=== PATIENT | female | born 1955 | race Caucasian/White ===

== ENCOUNTER → 2022-11-23 13:04 | Outpatient (BNVA) | payer MEDICARE, MEDICAID, SELFPAY | PROVIDERS: PCP Pediatrics; Visit Provider Psychiatry & Neurology Neurology | DX: G25.2 Other specified forms of tremor (principal); G25.81 Restless legs syndrome; G43.109 Migraine with aura, not intractable, without status migrainosus; G47.33 Obstructive sleep apnea (adult) (pediatric) | CPT/HCPCS: 99202 ==

== ENCOUNTER → 2022-12-22 12:31 | Outpatient (REF) | payer MEDICARE, MEDICAID, SELFPAY | LOC: HO.SL 12:31 | PROVIDERS: PCP Pediatrics; Visit Provider Psychiatry & Neurology Neurology | DX: G47.33 Obstructive sleep apnea (adult) (pediatric) (principal) | CPT/HCPCS: 95806 ==

== ENCOUNTER → 2022-12-22 12:44 | Outpatient (BNV) | payer MEDICARE, MEDICAID, SELFPAY | PROVIDERS: PCP Pediatrics; Visit Provider Psychiatry & Neurology Neurology | DX: G47.33 Obstructive sleep apnea (adult) (pediatric) (principal) | CPT/HCPCS: 95806 ==

== ENCOUNTER 2023-03-09 13:24 | Outpatient (AMB) | payer MEDICARE, MEDICAID, SELFPAY ==
--- NOTE | 2023-03-09 13:25 | MHC.OFFVIS ---
Intake Vital Signs 03/09/23 13:28 BP 110/90 H Blood Pressure Location Rt brachial Position Sitting Pulse 83 Pulse Source Pulse Oximeter Pulse Oximetry (%) 99 Oxygen Delivery Method Room Air Intake Visit Reasons: 3m follow up tremor-confirmed Intake Note: Pt her to fup on tremors and rls Allergies latex Allergy (Severe, Verified 03/09/23 13:31) Rash metoclopramide [From Reglan] Allergy (Severe, Verified 03/09/23 13:31) Shortness of Breath morphine Allergy (Severe, Verified 03/09/23 13:31) Hallucinations Sulfa (Sulfonamide Antibiotics) Allergy (Severe, Verified 03/09/23 13:31) Rash Medication List - Last Reconciled 03/09/23 by Tesha Moffett MD allopurinol 100 mg PO DAILY aspirin 81 mg PO DAILY duloxetine 20 mg PO BID gabapentin 300 mg PO TID hydromorphone 2 mg PO DAILY levothyroxine 112 mcg PO DAILY omeprazole 20 mg PO DAILY ondansetron HCl 4 mg PO Q8H PRN potassium chloride ER 20 mEq PO DAILY pravastatin 40 mg PO DAILY primidone 100 mg (2 x 50 mg) PO BID ropinirole 0.25 mg PO BID ropinirole ER 4 mg PO BEDTIME spironolactone 25 mg PO DAILY torsemide 40 mg PO BID HPI HPI Comments History of Present Illness Details 67y/o female with multiple medical issues comes for follow up of tremors, restless legs sydnrome and migraines Requip XR 2mg helped she still has breakthrough symptoms. Increase in primidone did not help. Previous History-she was under the care of Dr. Damon until he retired . He was treating her with Botox for migraines a, primidone and ropinirole. She started having frequent migraines in 20s and increased in frequency since then Her headaches( pressure pounding) are frontal , occipital with nausea, photophobia phonophobia, vomiting , sees bright spots , dizziness etc. It can last 1-2 days. she has about 4 headaches days a month now. she use dto have more than 20 headache days in the past. she was tried on amitirptyline, depakote,gabapentin, propranolol, sumatriptan, maxalt fioricet etc . She was diagnosed with restless legs syndrome 2 years ago.she also has sleep apnea on CPAP - non complaint. she sees pulley maintainer and he is managing her CPAP. she reports abnormal movements and tingling burning in her feet at rest and at night. she wakes up 4-5 times at night. Ropinirole helps. She started noticing hand tremors about 3 years ago . It is usually with action or posture. It can happen at rest. she has difficulty eating , drinking , frequently drops things. [facility] Medical History Hypothyroid HTN (hypertension) GERD (gastroesophageal reflux disease) Depression Hyperlipidemia Below-knee amputation of right lower extremity Diverticulosis DJD (degenerative joint disease) Chronic migraine with aura Coarse tremors Restless legs syndrome (RLS) Obstructive sleep apnea Irritable bowel disease MTHFR gene mutation DVT (deep venous thrombosis) Sciatica Osteoporosis Prediabetes Surgical History Hx of above knee amputation Hx of knee surgery H/O: hysterectomy History of back surgery Family History Father Heart disease Parkinson disease Mother Heart disease COPD (chronic obstructive pulmonary disease) HTN (hypertension) Sleep apnea Sister Emphysema lung Glaucoma Thyroid condition Social History Alcohol intake: never Patient Tobacco Use Status: Never used Tobacco Physical Exam Vital Signs: Last Vital Signs Pulse 83 03/09/23 13:28 BP 110/90 H 03/09/23 13:28 Pulse Ox 99 03/09/23 13:28 Oxygen Delivery Method Room Air 03/09/23 13:28 Const Orientation/consciousness: patient oriented x3 Neuro Other: aster UE moderate amplitude postural action tremors and rare rets tremors. Normal tone Joint deformities due to arthritis that affects her hand movements. Asymmetrical pupils - she had retinl bleeding and had injections yesterday ? Right BKA General: patient oriented x3, tone normal, moves all extremities and Unable to assess gait Cranial nerves: Yes Nystagmus not present, Yes Normal facial strength present, Yes Midline tongue present, Yes Symmetric palate elevation present and Yes Ability to bilaterally elevate shoulders present Cognition (Neuro): normal cognition Speech: Other speech findings present (Neuro) (normal) Gait exam (Neuro): Unable to assess gait Motor exam (neuro): 5/5 motor strength present throughout Coordination: other (FN - action tremors) Psych Appearance: grossly normal Assessment & Plan Assessment & Plan (1) Coarse tremors: Code(s): G25.2 - Other specified forms of tremor (2) Restless legs syndrome (RLS): Code(s): G25.81 - Restless legs syndrome (3) Chronic migraine with aura: Code(s): G43.109 - Migraine with aura, not intractable, without status migrainosus (4) Obstructive sleep apnea: Code(s): G47.33 - Obstructive sleep apnea (adult) (pediatric) Plan Increase Primidone 100mg bid ropinirole CR 2mg qhs and continue ropinirole 0.25 mg bid Her migraines are stable now 3-4 /month and responds to tylenol Continue CPAP Medications: New ropinirole 0.25 mg PO BID 60 tabs 6RF Changed From primidone 50 mg PO BID 60 tabs 6RF To primidone 100 mg (2 x 50 mg) PO BID 120 tabs 6RF From ropinirole ER 2 mg PO BEDTIME 30 tabs 6RF To ropinirole ER 4 mg PO BEDTIME 30 tabs 6RF Coding Level of Care Code Est Pt Level 4 (00781) Diagnoses Coarse tremors G25.2 Restless legs syndrome (RLS) G25.81 Chronic migraine with aura G43.109 Obstructive sleep apnea G47.33
[2023-03-09 13:28] VITALS: BP 110/90; PULSE 83; O2SAT 99
== END 2023-03-09 13:51 | disposition home or self-care (01) ==
PROVIDERS: PCP Pediatrics; Visit Provider Psychiatry & Neurology Neurology
DX: G25.2 Other specified forms of tremor (principal); G25.81 Restless legs syndrome; G43.109 Migraine with aura, not intractable, without status migrainosus; G47.33 Obstructive sleep apnea (adult) (pediatric)
CPT/HCPCS: 99214

== ENCOUNTER → 2023-03-09 13:24 | Outpatient (BNVA) | payer MEDICARE, MEDICAID, SELFPAY | PROVIDERS: PCP Pediatrics; Visit Provider Psychiatry & Neurology Neurology | DX: G25.2 Other specified forms of tremor (principal); G25.81 Restless legs syndrome; G43.E09 Chronic migraine with aura, not intractable, without status migrainosus; G47.33 Obstructive sleep apnea (adult) (pediatric); Z99.89 Dependence on other enabling machines and devices | CPT/HCPCS: 99212 ==

== ENCOUNTER 2024-04-24 09:55 | Outpatient (AMB) | payer MEDICARE, MEDICAID, SELFPAY ==
--- NOTE | 2024-04-24 10:42 | MHC.OFFVIS ---
Intake Visit Reasons: Follow up Intake Note: Patient presents for follow up Allergies latex Allergy (Severe, Verified 04/24/24 10:44) Rash metoclopramide [From Reglan] Allergy (Severe, Verified 04/24/24 10:44) Shortness of Breath morphine Allergy (Severe, Verified 04/24/24 10:44) Hallucinations Sulfa (Sulfonamide Antibiotics) Allergy (Severe, Verified 04/24/24 10:44) Rash Medication List - Last Reconciled 04/24/24 by Tesha Moffett MD allopurinol 100 mg PO DAILY aspirin 81 mg PO DAILY duloxetine 20 mg PO BID gabapentin 300 mg PO TID hydromorphone 2 mg PO DAILY levothyroxine 112 mcg PO DAILY omeprazole 20 mg PO DAILY ondansetron HCl 4 mg PO Q8H PRN potassium chloride ER 20 mEq PO DAILY pravastatin 40 mg PO DAILY primidone 100 mg (2 x 50 mg) PO BID ropinirole 1 tab qam and 1 tab q noon 8 tabs qhs orally; spironolactone 25 mg PO DAILY torsemide 40 mg PO BID HPI Comments Details: 69y/o female with multiple medical issues comes for follow up of tremors, restless legs sydnrome and migraines. she was in senior living for 3 months for cellulitis . Her ropinirole and primiodne dose was decreased and her restless legs and tremors are worse now. Her primiodne dose was decreased to 50mg bid from 100mg bid. Ropinirole 0.25 mg was decreased from 1-1-8 to 1-1-2 . Previous History-she was under the care of Dr. Damon until he retired . He was treating her with Botox for migraines a, primidone and ropinirole. She started having frequent migraines in 20s and increased in frequency since then Her headaches( pressure pounding) are frontal , occipital with nausea, photophobia phonophobia, vomiting , sees bright spots , dizziness etc. It can last 1-2 days. she has about 4 headaches days a month now. she use dto have more than 20 headache days in the past. she was tried on amitirptyline, depakote,gabapentin, propranolol, sumatriptan, maxalt fioricet etc . She was diagnosed with restless legs syndrome 2 years ago.she also has sleep apnea on CPAP - non complaint. she sees manager deli and he is managing her CPAP. she reports abnormal movements and tingling burning in her feet at rest and at night. she wakes up 4-5 times at night. Ropinirole helps. She started noticing hand tremors about 3 years ago . It is usually with action or posture. It can happen at rest. she has difficulty eating , drinking , frequently drops things. [facility] Medical History Hypothyroid HTN (hypertension) GERD (gastroesophageal reflux disease) Depression Hyperlipidemia Below-knee amputation of right lower extremity Diverticulosis DJD (degenerative joint disease) Chronic migraine with aura Coarse tremors Restless legs syndrome (RLS) Obstructive sleep apnea Irritable bowel disease MTHFR gene mutation DVT (deep venous thrombosis) Sciatica Osteoporosis Prediabetes Surgical History Hx of above knee amputation Hx of knee surgery H/O: hysterectomy History of back surgery Family History Father Heart disease Parkinson disease Mother Heart disease COPD (chronic obstructive pulmonary disease) HTN (hypertension) Sleep apnea Sister Emphysema lung Glaucoma Thyroid condition Social History Alcohol intake: never Patient Tobacco Use Status: Never used Tobacco Physical Exam Const Orientation/consciousness: patient oriented x3 Neuro Other: aster UE moderate amplitude postural action tremors and rare rest tremors. Normal tone Joint deformities due to arthritis that affects her hand movements. Right BKA General: patient oriented x3, tone normal, moves all extremities and Unable to assess gait Cranial nerves: Yes Nystagmus not present, Yes Normal facial strength present, Yes Midline tongue present, Yes Symmetric palate elevation present and Yes Ability to bilaterally elevate shoulders present Cognition (Neuro): normal cognition Speech: Other speech findings present (Neuro) (normal) Gait exam (Neuro): Unable to assess gait Motor exam (neuro): 5/5 motor strength present throughout Coordination: other (FN - action tremors) Psych Appearance: grossly normal Assessment & Plan Assessment & Plan (1) Coarse tremors: Code(s): G25.2 - Other specified forms of tremor Category: Medical (2) Restless legs syndrome (RLS): Code(s): G25.81 - Restless legs syndrome Category: Medical (3) Chronic migraine with aura: Code(s): G43.109 - Migraine with aura, not intractable, without status migrainosus Category: Medical Qualifiers: Status migrainosus presence: without status migrainosus Intractability: not intractable Qualified Code(s): G43.E09 - Chronic migraine with aura, not intractable, without status migrainosus (4) Obstructive sleep apnea: Code(s): G47.33 - Obstructive sleep apnea (adult) (pediatric) Category: Medical Plan Increase primidone 100mg bid Ropinirole 0.25 mg 8 restart CPAP which can help her headaches Medications: Refilled primidone 100 mg (2 x 50 mg) PO BID 120 tabs 6RF ropinirole 1 tab qam and 1 tab q noon 8 tabs qhs orally; 300 tabs 6RF Coding Level of Care Code Est Pt Level 4 (88062) Complex EM visit Add On G2211 Diagnoses Coarse tremors G25.2 Restless legs syndrome (RLS) G25.81 Chronic migraine with aura without status migrainosus, not intractable G43.E09 Status migrainosus presence: without status migrainosus Intractability: not intractable Obstructive sleep apnea G47.33
== END 2024-04-24 11:02 | disposition home or self-care (01) ==
PROVIDERS: PCP Pediatrics; Visit Provider Psychiatry & Neurology Neurology
DX: G25.2 Other specified forms of tremor (principal); G25.81 Restless legs syndrome; G43.E09 Chronic migraine with aura, not intractable, without status migrainosus; G47.33 Obstructive sleep apnea (adult) (pediatric)
CPT/HCPCS: 99214; G2211

== ENCOUNTER → 2024-04-24 09:55 | Outpatient (BNVA) | payer MEDICARE, MEDICAID, SELFPAY | PROVIDERS: PCP Pediatrics; Visit Provider Psychiatry & Neurology Neurology | DX: G25.2 Other specified forms of tremor (principal); G25.81 Restless legs syndrome; G47.33 Obstructive sleep apnea (adult) (pediatric); G43.E09 Chronic migraine with aura, not intractable, without status migrainosus; Z99.89 Dependence on other enabling machines and devices | CPT/HCPCS: 99212 ==

== ENCOUNTER 2024-08-07 12:59 | Outpatient (AMB) | payer MEDICARE, MEDICAID, SELFPAY ==
--- NOTE | 2024-08-07 13:06 | A.OFFVIS_ITS ---
Vital Signs 08/07/24 13:09 Height 5 ft 3 in BP 114/66 Blood Pressure Location Rt brachial Position Sitting Pulse 60 Pulse Source Pulse Oximeter Pulse Oximetry (%) 99 Oxygen Delivery Method Room Air Intake Visit Reasons: follow up Intake Note: Pt presents to the office today for a follow up for chronic migraines, LINDSEY, and tremors. Allergies latex Allergy (Severe, Verified 08/07/24 13:09) Rash metoclopramide [From Reglan] Allergy (Severe, Verified 08/07/24 13:09) Shortness of Breath morphine Allergy (Severe, Verified 08/07/24 13:09) Hallucinations Sulfa (Sulfonamide Antibiotics) Allergy (Severe, Verified 08/07/24 13:09) Rash Medication List - Last Reconciled 08/07/24 by Tesha Moffett MD allopurinol 100 mg PO DAILY aspirin 81 mg PO DAILY duloxetine 20 mg PO BID gabapentin 300 mg PO TID hydromorphone 2 mg PO DAILY levothyroxine 112 mcg PO DAILY losartan 25 mg PO DAILY metoprolol tartrate 25 mg PO BID omeprazole 20 mg PO DAILY ondansetron HCl 4 mg PO Q8H PRN potassium chloride ER 20 mEq PO DAILY pravastatin 40 mg PO DAILY primidone 100 mg (2 x 50 mg) PO BID ropinirole 1 tab qam and 1 tab q noon 8 tabs qhs orally; spironolactone 25 mg PO DAILY torsemide 40 mg PO BID HPI Comments Details: Patient was informed and verbally consented to the use of an ambient scribe for clinic note documentation during this visit. 69y/o female with multiple medical issues comes for follow up of tremors, restless legs sydnrome and migraines.she also reports neck pain and has 2 headaches per week and takes tylenol . Her CPAP compliance is limited due to discomfort, resulting in morning breathlessness indicating obstructive sleep apnea remains inadequately managed.. Tremors are not adequately controlled by Primidone, despite dose adjustments and the absence of adverse effects. The restless leg syndrome severely affects her, necessitating a review of her ropinirole regimen, which currently causes significant discomfort when multiple doses are taken at night. Previous History-she was under the care of Dr. Damon until he retired . He was treating her with Botox for migraines a, primidone and ropinirole. She started having frequent migraines in 20s and increased in frequency since then Her headaches( pressure pounding) are frontal , occipital with nausea, photophobia phonophobia, vomiting , sees bright spots , dizziness etc. It can last 1-2 days. she has about 4 headaches days a month now. she use dto have more than 20 headache days in the past. she was tried on amitirptyline, depakote,gabapentin, propranolol, sumatriptan, maxalt fioricet etc . She was diagnosed with restless legs syndrome 2 years ago.she also has sleep apnea on CPAP - non complaint. she sees reducing salon attendant and he is managing her CPAP. she reports abnormal movements and tingling burning in her feet at rest and at night. she wakes up 4-5 times at night. Ropinirole helps. She started noticing hand tremors about 3 years ago . It is usually with action or posture. It can happen at rest. she has difficulty eating , drinking , frequently drops things. [facility] Medical History (Updated 08/07/24 @ 13:21 by Tesha Moffett MD) Cervicalgia Hypothyroid HTN (hypertension) GERD (gastroesophageal reflux disease) Depression Hyperlipidemia Below-knee amputation of right lower extremity Diverticulosis DJD (degenerative joint disease) Chronic migraine with aura Coarse tremors Restless legs syndrome (RLS) Obstructive sleep apnea Irritable bowel disease MTHFR gene mutation DVT (deep venous thrombosis) Sciatica Osteoporosis Prediabetes Surgical History Hx of above knee amputation Hx of knee surgery H/O: hysterectomy History of back surgery Family History Father Heart disease Parkinson disease Mother Heart disease COPD (chronic obstructive pulmonary disease) HTN (hypertension) Sleep apnea Sister Emphysema lung Glaucoma Thyroid condition Social History Alcohol intake: never Patient Tobacco Use Status: Never used Tobacco Review of Systems Const Details: - Neurological: Reports tremors, persistent headaches, and restless leg syndrome. - Respiratory: Reports obstructive sleep apnea with insufficient CPAP compliance. - Cardiovascular: Denies chest pain or palpitations. - Dermatological: Reports recurrent cellulitis. Physical Exam Vital Signs: Last Vital Signs Pulse 60 08/07/24 13:09 BP 114/66 08/07/24 13:09 Pulse Ox 99 08/07/24 13:09 Oxygen Delivery Method Room Air 08/07/24 13:09 Const Orientation/consciousness: patient oriented x3 Neuro Other: aster UE moderate amplitude postural action tremors and rare rest tremors. Normal tone Joint deformities due to arthritis that affects her hand movements. Right BKA General: patient oriented x3, tone normal, moves all extremities and Unable to assess gait Cranial nerves: Yes Nystagmus not present, Yes Normal facial strength present, Yes Midline tongue present, Yes Symmetric palate elevation present and Yes Ability to bilaterally elevate shoulders present Cognition (Neuro): normal cognition Speech: Other speech findings present (Neuro) (normal) Gait exam (Neuro): Unable to assess gait Motor exam (neuro): 5/5 motor strength present throughout Coordination: other (FN - action tremors) Psych Appearance: grossly normal Assessment & Plan Assessment & Plan (1) Coarse tremors: Code(s): G25.2 - Other specified forms of tremor Category: Medical (2) Restless legs syndrome (RLS): Code(s): G25.81 - Restless legs syndrome Category: Medical (3) Chronic migraine with aura: Code(s): G43.109 - Migraine with aura, not intractable, without status migrainosus Category: Medical Qualifiers: Status migrainosus presence: without status migrainosus Intractability: not intractable Qualified Code(s): G43.E09 - Chronic migraine with aura, not intractable, without status migrainosus (4) Obstructive sleep apnea: Code(s): G47.33 - Obstructive sleep apnea (adult) (pediatric) Category: Medical (5) Cervicalgia: Code(s): M54.2 - Cervicalgia Category: Medical Plan primidone 100mg bid Ropinirole 0.5mg 1-1-2 Increase gabapentin 300mg qid F/u with DR. Ortiz -CPAP Consider PT for neck Medications: Changed From ropinirole 1 tab qam and 1 tab q noon 8 tabs qhs orally; 300 tabs 6RF To ropinirole 1 tab qam and 1 tab q noon 4 tabs qhs orally; 180 tabs 6RF From gabapentin 300 mg PO TID To gabapentin 300 mg PO QID 120 caps 1RF Coding Level of Care Code Est Pt Level 4 (96779) Complex EM visit Add On G2211 Diagnoses Coarse tremors G25.2 Restless legs syndrome (RLS) G25.81 Chronic migraine with aura without status migrainosus, not intractable G43.E09 Status migrainosus presence: without status migrainosus Intractability: not intractable Obstructive sleep apnea G47.33 Cervicalgia M54.2
[2024-08-07 13:09] VITALS: BP 114/66; PULSE 60; O2SAT 99
--- OUTSIDE RECORDS SUMMARY | 2024-08-07 15:19 | XMS_ITS | Clinical Summary ---
Author Organization [facility] Address [address] [place] [address] Care Team Providers Care Youth Development Specialist Name Role Phone Steven Logan MD Primary Care Provider [phone] Allergies Active Allergy Reactions Criticality Noted Date Comments Sulfamethoxazole-Trimethoprim 2022 Latex 07/04/2022 Metoclopramide 07/04/2022 Sulfa Antibiotics 07/04/2022 Ketorolac Tromethamine 07/04/2022 Medications No known medications Active Problems No known active problems Social History Tobacco Use Types Packs/Day Years Used Date Smoking Tobacco: Never Smokeless Tobacco: Never Tobacco Cessation:Counseling Given: Not Answered Alcohol Use Standard Drinks/Week Comments Never 0 (1 standard drink = 0.6 oz pur e alcohol) Sex and Gender Information Value Date Recorded Sex Assigned at Not on file Gender Identity Not on file Sexual Orientation Not on file Job Start Date Occupation Industry Not on file Not on file Not on file Last Filed Vital Signs Vital Sign Reading Time Taken Comments Blood Pressure 166/79 07/20/2022 11:21 AM EST Pulse 86 07/20/2022 11:21 AM EST Temperature 36.5 ??C (97.7 ??F) 07/20/2022 11:[address] Respiratory Rate - - Oxygen Saturation 98% 07/20/2022 11:21 AM EST Inhaled Oxygen Concentration - - Weight 95.3 kg (210 lb) 07/04/2022 11:45 AM EST Height 160 cm (5' 3 ) 07/04/2022 11:45 AM EST Body Mass Index 37.2 07/04/2022 11:45 AM EST Plan of Treatment Health Maintenance Due Date Last Done Comments Hepatitis C Screening 1955 COVID-19 Vaccine (#1) 1954 Depression Screening 1966 Preventative Health Evaluation 1972 Colon Cancer Screening (Colonoscopy) 1999 Breast Cancer Screening (Mammogram) 2004 Shingrix-Zoster Vaccine (1 of 2) 2004 Fall Risk Assessment 2019 Osteoporosis Screening (DEXA Scan) 2019 Pneumococcal Vaccine (2 of 2 - PCV) 09/29/2021 09/29/2020 DTap / Tdap / Td (2 - Td or Tdap) 04/30/2022 04/30/2012 Influenza Vaccine (#1) 2024 2, 2021, 02/08/2019, Additional history exists RSV Adult > 60+ Yrs or (1 - 1-dose 75+ series) 2029 Hepatitis B Vaccines Aged Out No long er eligible based on patient's age to complete this topic RSV Ped < 20 months Aged Out No longe r eligible based on patient's age to complete this topic Care Teams Youth Development Specialist Relationship Specialty Start Date End Date Steven Logan MD PCP - General Network Coordinator 05/03/22
== END 2024-08-07 13:32 | disposition home or self-care (01) ==
PROVIDERS: PCP Pediatrics; Visit Provider Psychiatry & Neurology Neurology
DX: G25.2 Other specified forms of tremor (principal); G25.81 Restless legs syndrome; G43.E09 Chronic migraine with aura, not intractable, without status migrainosus; G47.33 Obstructive sleep apnea (adult) (pediatric); M54.2 Cervicalgia
CPT/HCPCS: 99214; G2211

== ENCOUNTER → 2024-08-07 12:59 | Outpatient (BNVA) | payer MEDICARE, MEDICAID, SELFPAY | PROVIDERS: PCP Pediatrics; Visit Provider Psychiatry & Neurology Neurology | DX: G43.E09 Chronic migraine with aura, not intractable, without status migrainosus (principal); G47.33 Obstructive sleep apnea (adult) (pediatric); G25.81 Restless legs syndrome; M54.2 Cervicalgia; Z99.89 Dependence on other enabling machines and devices | CPT/HCPCS: 99212 ==

== ENCOUNTER 2025-05-30 11:22 | Outpatient (AMB) | payer MEDICARE, MEDICAID, SELFPAY ==
--- OUTSIDE RECORDS SUMMARY | 2025-05-26 10:30 | XMS_ITS | Encounter Summary ---
Author Organization [facility] Address [address] [place] [address] Care Team Providers Care Jacket Preparer Name Role Phone Sheridan Logan MD Primary Care Provider [phone] Reason for Visit * Reason Comments Wound Care Encounter Details Date Type Department Care Team (Latest Contact Info) Description 05/26/2025 10:30 AM EST Office Visit [facility] [address] [place] [phone] Emma Garcias MD [address] [place] [phone] Other complications of amputation stump (CMS/FORMERLY [facility] V24, CMS/FORMER[facility] V28) (Primary Dx); Non-pressure chronic ulcer of other part of right lower leg with fat layer exposed (CMS/HCC V24, CMS/HCC V28); Acquired absence of right leg below knee (CMS/HCC V24, CMS/HCC V28); Dermatitis associated with moisture; Open wound of abdomen, subsequent encounter; Non-pressure chronic ulcer of skin of other sites with fat layer exposed (CMS/HCC V24, CMS/HCC V28); Abrasion of left great toe, initial encounter; Non-pressure chronic ulcer of other part of left foot limited to breakdown of skin (CMS/HCC V24, CMS/HCC V28) Social History Tobacco Use Types Packs/Day Years Used Date Smoking Tobacco: Never Passive Smoke Exposure: Never Smokeless Tobacco: Never Alcohol Use Standard Drinks/Week Comments No 0 (1 standard drink = 0.6 oz pur e alcohol) Comments No Sex and Gender Information Value Date Recorded Sex Assigned at Not on file Legal Sex Female 6:41 AM EST Gender Identity Not on file Sexual Orientation Not on file documented as of this encounter Last Filed Vital Signs Vital Sign Reading Time Taken Comments Blood Pressure 112/52 05/26/2025 10:36 AM EST Pulse 71 05/26/2025 10:36 AM EST Temperature 36 C (96.8 F) 05/26/2025 10:36 AM EST Respiratory Rate 17 05/26/2025 10:36 AM EST Oxygen Saturation 94% 05/26/2025 10:36 AM EST Inhaled Oxygen Concentration - - Weight - - Height - - Body Mass Index - - documented in this encounter Progress Notes * Ericka Chavarria RN - 05/26/2025 10:30 AM EST PROVIDER ORDERS Go to ER if you are presenting with fever, chills, increased redness, pain, swelling, warmth aroundwound area and/or foul smelling odor. If you have any questions or concerns, please contact the [facility] at . Follow up(s)/ Referrals: N/A Chcf: care home facility: [facility] -Please have chain maker machine see patient, states she is losing a lot of weight, no appetite Additional Orders: -Increase protein in your diet to help promote wound healing Edema Control: If your compression wrap(s) feel to tight, please elevate your leg(s) about heart level. If your wrap(s) are becoming painful and/or you loose sensation of toes/ are having toe discoloration (a change from your baseline), please remove / unwrap compression and notify [facility] at . -Tubigrip to left lower extremity. Apply first thing in the morning prior to getting out of bed, OKto remove at bedtime. Ensure tubigrip extends from just behind the toes to about 2 finger widths below the knee. -right BKA- Michael wrap (make sure it is not bunching and causing breakdown behind the knee) -Elevate legs above heart level as much as possible Offloading: Limit pressure to wound as much as possible Negative Pressure Wound Therapy: N/A Cellular/Tissue Based Products: N/A Bathing / Showering / Hygiene: -Ok to shower with dressing on, then change dressing right after. Non-wound Condition/ Other Skin Care: Moisturize skin daily, avoiding wound area Wound Location(s): Wound #1 (Right BKA): Cleanser: Cleanse with normal saline Periwound: Apply Zinc Oxide to elsa wound Topical: N/A Primary dressing: Collagen with Silver- will dissolve in wound. If not dissolving you may moisten with saline prior to covering. Secondary dressinx9 ABD pad Secure with: Kerlix wrap, 1 paper tape Compression Therapy: 4 Michael Wrap Dressing Change Frequency: Daily Wound #2 (Right abdominal fold): Cleanser: Cleanse with Normal Saline Periwound: Other: Miconazole 2% cream to superficial reddened areas Topical: N/A Primary dressing: Hydrofiber with silver (Aquacel AG)- cut to fit to wound bed (to deeper wound area) Secondary dressinx4 Foam border dressing (if able to stay in place) Secure with: N/A Compression Therapy: N/A Dressing Change Frequency: Daily Wound #3 (Left great toe): Cleanser: Cleanse with Normal Saline Periwound: N/A Topical: Mupirocin 2% ointment- Apply a thin layer to wound bed Primary dressing: N/A Secondary dressinx2 woven gauze ( non-sterile) Secure with: 2 conforming gauze roll, 1 paper tape Compression Therapy: N/A Dressing Change Frequency: Daily * Emma Garcias MD - 05/26/2025 10:30 AM ESTAssociated Order(s): Debridement Dehiscence of Surgical Wound (Cluster ) Right;Lower;Other (Comment) (BKA) Leg (BKA amputation site ) Post-Procedure Diagnose(s): Other complications of amputation stump (CMS/HCC V24, CMS/HCC V28); Non-pressure chronic ulcer of other part of right lower leg with fat layer exposed (CMS/HCC V24, CMS/HCC V28); Acquired absence of right leg below knee (CMS/[facility] V24, CMS/[facility] V28) Images from the original note were not included. [facility] at [address] [address] Office Visit Visit Date: 05/26/2025 Patient Name: Elda Skinner Date of : 1955 PCP: Sheridan Logan MD HPI: Elda comes in for follow-up right BKA stump wound, treated with Danielle and alginate dressing change every other day. She now has a new left big toe wound. She also has superficial right lower quadrant wounds treated with alginate dressing change every other day. She apparently was seen recently at [facility] for recurrent UTI. She has an upcoming appointment with the supply chain analyst Dr. Hargrove. She is to see the neurologist for her tremors. Her diabetes is fairly well-controlled. She is still at the senior care facility since her shoulder surgery. Assessment and Plan: Other complications of amputation stump (CMS/[facility] V24, [facility]/FORMERLY [facility] V28) (Primary) - Debridement Dehiscence of Surgical Wound (Cluster ) Right;Lower;Other (Comment) (BKA) Leg (BKA amputation site ) Non-pressure chronic ulcer of other part of right lower leg with fat layer exposed ([facility]/FORMERLY [facility] V24, [facility] V28) - Debridement Dehiscence of Surgical Wound (Cluster ) Right;Lower;Other (Comment) (BKA) Leg (BKA amputation site ) Acquired absence of right leg below knee (CMS/[facility] V24, CMS/[facility] V28) - Debridement Dehiscence of Surgical Wound (Cluster ) Right;Lower;Other (Comment) (BKA) Leg (BKA amputation site ) Dermatitis associated with moisture Open wound of abdomen, subsequent encounter Non-pressure chronic ulcer of skin of other sites with fat layer exposed (CMS/[facility] V24, CMS/[facility] V28) Abrasion of left great toe, initial encounter Non-pressure chronic ulcer of other part of left foot limited to breakdown of skin (CMS/[facility] V24, CMS/[facility] V28) Selective debridement right BKA stump wound carried out with scalpel and forceps removing fibrin and slough no bleeding. Local 5% lidocaine used. Continue Danielle and alginate to the BKA stump, mupirocin to the left big big toe wound, alginate tothe right lower quadrant wounds. All questions were answered to her satisfaction. She was counseled regarding my impressions, instructions for management, and the importance of compliance with treatment. Follow up in about 2 weeks (around 06/09/2025) for Follow up with Dr. Garcias. >>>>>>>>>>>>>>>>>>>>>>>>>>>>>>>>>>>>>>>>>>>>>>>>>>> Vital Signs: Visit Vitals BP 112/52 Pulse 71 Temp 36 ??C (96.8 ??F) (Temporal) Resp 17 SpO2 94% OB Status Postmenopausal Smoking Status Never Review of Systems: Review of Systems PHYSICAL EXAM right BKA stump wound about the same size, pink granulation tissue some fibrin and slough around the edges. BKA stump edema improved. Left big toe wound superficial skin loss mild erythema around the wound localized, no foot edema nocellulitis. Right lower quadrant wounds was a cluster of 3. 2 of the ulcers have healed, remaining ulcers cleanwith pink granulation tissue, smaller in size. Periwound skin intact no cellulitis. WOUND ASSESSMENT If photograph of wound not visible on this note, please check under Media tab. Wound Dehiscence of Surgical Wound 09/27/19 Leg Right;Lower;Other (Comment) (Active) Date First Assessed/Time First Assessed: 09/27/19 1000 Primary Wound Type: (c) Dehiscence of Surgical Wound Wound Approximate Age at First Assessment (Weeks): 0 weeks Hand Hygiene Completed: Yes Location: (c) Leg Wound Location Orientation: (c) ... Assessments 04/08/2024 12:00 PM 05/26/2025 10:45 AM Wound Image Wound Bed Tissue Assessment -- Granulation Elsa-Wound Assessment Edematous;Erythematous Scarred;[place] Wound Length (cm) 1.6 cm 0.3 cm Wound Width (cm) 7.2 cm 1.7 cm Wound Surface Area (cm^2) 11.52 cm^2 0.4 cm^2 Wound Depth (cm) 0.1 cm 0.2 cm Wound Volume (cm^3) 1.152 cm^3 0.053 cm^3 Wound Healing % -- 95 Drainage Description Serosanguineous Serosanguineous;Sanguineous Drainage Amount Large Moderate Treatments Cleansed Cleansed Dressing -- Tubular stocking;Foam Dressing Status -- Removed Wound Bed Granulation (%) 30 % 100 % Wound Bed Epithelialization (%) -- 0 % Wound Bed Slough (%) 70 % 0 % Wound Bed Eschar (%) 0 % 0 % Tunneling 0 cm 0 cm Undermining 0 cm 0 cm Edges Well-defined edges;Attached edges Attached edges;Well-defined edges Non-staged Wound Description -- Full thickness Active Orders Date Order Priority Status Authorizing Provider 05/26/25 1127 Debridement Dehiscence of Surgical Wound (Cluster ) Right;Lower;Other (Comment) (BKA)Leg (BKA amputation site ) Routine Active Emma Garcias MD 07/15/24 1501 Wound Care Supplies Routine Active Emma Garcias MD - Wound Care Supplies: Other (4 michael wraps with velcro closure) - Dispense As Written (KENIA)?: Yes - Frequency of Dressing Change: every other day - Further DME Specification:: see supplies in comment box - Face to face evaluation was performed on: 07/15/2024 - Additional providers who completed a face to face evaluation of the patient:: EMMA GARCIAS 07/01/24 1341 Wound Care Supplies Routine Active Emma Garcias MD - Wound Care Supplies: Gauze 4x4 (non sterile) (collagen with silver / 4 kerlix wrap / 1 paper tape /) - Wound Care Supplies: Normal saline for irrigation (sterile) - 500ml - Wound Care Supplies: Other - Wound Care Supplies: Michael Bandage 4 - Days Supply:: 30 - Wound Care Refill Qty:: 1 - Debridement Performed:: Yes - Wound Drainage:: Moderate - Dispense As Written (KENIA)?: Yes - Frequency of Dressing Change: every other day - Further DME Specification:: see additional supplies in comment box - Face to face evaluation was performed on: 07/01/2024 - Additional providers who completed a face to face evaluation of the patient:: EMMA GARCIAS 06/03/24 1318 Wound Care Supplies Routine Active Emma Garcias MD - Wound Care Supplies: Abdominal Pads - Wound Care Supplies: Normal saline for irrigation (sterile) - 500ml - Abdominal Pad size: 5x9 - Days Supply:: 30 - Wound Care Refill Qty:: 1 - Debridement Performed:: Yes - Wound Drainage:: Moderate - Dispense As Written (KENIA)?: No - Frequency of Dressing Change: every other day - Face to face evaluation was performed on: 06/03/2024 - Additional providers who completed a face to face evaluation of the patient:: EMMA GARCIAS 04/22/24 1740 Wound Care Supplies Routine Active Emma Garcias MD - Wound Care Supplies: Normal saline for irrigation (sterile) - 500ml (exudry 3x4in / paper tape 1in / Iodosorb gel) - Wound Care Supplies: Gauze 4x4 (non sterile) - Wound Care Supplies: Kerlix (large) - Wound Care Supplies: Other - Wound Care Supplies: Michael Bandage 4 - Days Supply:: 30 - Wound Care Refill Qty:: 2 - Debridement Performed:: Yes - Wound Drainage:: Moderate - Dispense As Written (KENIA)?: No - Frequency of Dressing Change: every other day - Further DME Specification:: please see all additional supplies in comments - Face to face evaluation was performed on: 04/22/2024 - Additional providers who completed a face to face evaluation of the patient:: EMMA GARCIAS Inactive Orders Date Order Priority Status Authorizing Provider 04/07/25 1402 Debridement Dehiscence of Surgical Wound (Cluster ) Right;Lower;Other (Comment) (BKA)Leg (BKA amputation site ) Routine Completed Emma Garcias MD 03/10/25 1121 Debridement Dehiscence of Surgical Wound (Cluster ) Right;Lower;Other (Comment) (BKA)Leg (BKA amputation site ) Routine Completed TAMRA Gottlieb 02/24/25 1452 Debridement Dehiscence of Surgical Wound (Cluster ) Right;Lower;Other (Comment) (BKA)Leg (BKA amputation site ) Routine Completed Emma Garcias MD 02/10/25 1419 Wound Care Procedure Dehiscence of Surgical Wound Leg Right;Lower;Other (Comment) Routine Completed Emma Garcias MD 01/20/25 1435 Debridement Dehiscence of Surgical Wound (Cluster ) Right;Lower;Other (Comment) (BKA)Leg (BKA amputation site ) Routine Completed Emma Garcias MD 01/06/25 1335 Debridement Dehiscence of Surgical Wound (Cluster ) Right;Lower;Other (Comment) (BKA)Leg (BKA amputation site ) Routine Completed Emma Garcias MD 12/23/24 1211 Debridement Dehiscence of Surgical Wound (Cluster ) Right;Lower;Other (Comment) (BKA)Leg (BKA amputation site ) Routine Completed Emma Garcias MD 11/04/24 1616 Debridement Dehiscence of Surgical Wound (Cluster ) Right;Lower;Other (Comment) (BKA)Leg (BKA amputation site ) Routine Completed Emma Garcias MD 09/16/24 1339 Debridement Dehiscence of Surgical Wound (Cluster ) Right;Lower;Other (Comment) (BKA)Leg (BKA amputation site ) Routine Completed Emma Garcias MD 09/02/24 1032 Debridement Dehiscence of Surgical Wound Right;Lower;Other (Comment) (BKA) Leg (BKA amputation site ) Routine Completed Emma Garcias MD 08/05/24 1502 Debridement Dehiscence of Surgical Wound Right;Lower;Other (Comment) (BKA) Leg (BKA amputation site ) Routine Completed Emma Garcias MD 07/29/24 1336 Debridement Dehiscence of Surgical Wound Right;Lower;Other (Comment) (BKA) Leg (BKA amputation site ) Routine Completed Emma Garcias MD 07/15/24 1450 Debridement Dehiscence of Surgical Wound Right;Lower;Other (Comment) (BKA) Leg (BKA amputation site ) Routine Completed Emma Garcias MD 06/17/24 1400 Debridement Dehiscence of Surgical Wound Right;Lower;Other (Comment) (BKA) Leg (BKA amputation site ) Routine Completed Emma Garcias MD 06/03/24 1309 Debridement Dehiscence of Surgical Wound Right;Lower;Other (Comment) (BKA) Leg (BKA amputation site ) Routine Completed Emma Garcias MD 05/20/24 1113 Debridement Dehiscence of Surgical Wound Right;Lower;Other (Comment) (BKA) Leg (BKA amputation site ) Routine Completed Emma Garcias MD 05/06/24 1411 Debridement Dehiscence of Surgical Wound Right;Other (Comment) (BKA) Knee (BKA amputation site ) Routine Completed Emma Garcias MD 04/08/24 1306 Debridement Knee (BKA amputation site ) Routine Completed TAMRA Gottlieb Wound 04/21/25 Abdomen Anterior;Right (Active) Date First Assessed/Time First Assessed: 04/21/25 1526 Wound Approximate Age at First Assessment (Weeks): 1.5 weeks Hand Hygiene Completed: Yes Location: Abdomen Wound Location Orientation: Anterior;Right Assessments 04/21/2025 3:27 PM 05/26/2025 10:46 AM Wound Image Wound Bed Tissue Assessment Granulation;Sloughing Granulation;Sloughing Elsa-Wound Assessment Red Red Wound Length (cm) 0.8 cm 2.5 cm Wound Width (cm) 12 cm 9.5 cm Wound Surface Area (cm^2) 7.54 cm^2 18.65 cm^2 Wound Depth (cm) 0.1 cm 0.1 cm Wound Volume (cm^3) 0.503 cm^3 1.244 cm^3 Wound Healing % -- -147 Drainage Description -- Unable to assess Treatments Cleansed Cleansed Dressing Open to air Open to air Wound Bed Granulation (%) 80 % 50 % Wound Bed Epithelialization (%) 0 % 0 % Wound Bed Slough (%) 20 % 50 % Wound Bed Eschar (%) 0 % 0 % Tunneling 0 cm 0 cm Undermining 0 cm 0 cm Edges Attached edges;Well-defined edges Attached edges No associated orders. Wound Diabetic Ulcer 05/19/25 Toe D1, Great Anterior;Left (Active) Date First Assessed: 05/19/25 Primary Wound Type: Diabetic Ulcer Wound Approximate Age at First Assessment (Weeks): 1 weeks Hand Hygiene Completed: Yes Diabetic Ulcer Grading: Grade 2 Location: Toe D1, Great Wound Location Orientation: Anterior... Assessments 05/26/2025 10:50 AM Wound Image Wound Bed Tissue Assessment Sloughing Elsa-Wound Assessment Red Wound Length (cm) 0.5 cm Wound Width (cm) 1 cm Wound Surface Area (cm^2) 0.39 cm^2 Wound Depth (cm) 0.1 cm Wound Volume (cm^3) 0.026 cm^3 Drainage Description Unable to assess Treatments Cleansed Dressing Open to air Wound Bed Granulation (%) 0 % Wound Bed Epithelialization (%) 0 % Wound Bed Slough (%) 100 % Wound Bed Eschar (%) 0 % Tunneling 0 cm Undermining 0 cm Edges Attached edges Non-staged Wound Description Full thickness No associated orders. Pertinent Labs: Albumin Date Value Ref Range Status 01/27/2025 3.5 3.2 - 5.0 g/dL Final WBC Date Value Ref Range Status 04/17/2025 7.8 4.8 - 10.8 K/mcL Final WBC, Urine Date Value Ref Range Status 04/01/2025 0.2 0 - 4 /HPF Final Hemoglobin A1C Date Value Ref Range Status 01/27/2025 6.0 <6.5 % Final Procedure Note: Debridement Dehiscence of Surgical Wound (Cluster ) Right;Lower;Other (Comment) (BKA) Leg (BKA amputation site ) Performed by: Emma Garcias MD Authorized by: Emma Garcias MD Associated wounds: Wound Dehiscence of Surgical Wound 09/27/19 Leg Right;Lower;Other (Comment) Consent: Consent obtained: Verbal Consent given by: Patient Risks discussed: Yes Time out: Immediately prior to the procedure a time out was called Time out performed at: 05/26/2025 11:27 AM Debridement Details: Performed by: Physician Type: selective Pain control: Lidocaine 5% Pain control administration: topical anesthesia Severity of Tissue Pre Debridement: Fat layer exposed Severity of Tissue Post Debridement: Fat layer exposed Time taken: 05/26/2025 10:45 AM Length (cm): 0.3 Width (cm): 1.7 Depth (cm): 0.2 Area (cm^2): 0.4 Time taken: 05/26/2025 10:46 AM Length (cm): 0.3 Width (cm): 1.7 Depth (cm): 0.2 Percent Debrided (%): 100 Surface Area (cm^2): 0.4 Area Debrided (cm^2): 0.4 Volume (cm^3): 0.05 Devitalized tissue debrided: fibrin and slough Devitalized tissue debrided comment: Devitalized skin Instrument: Blade and forceps Amount of bleeding: small Hemostasis obtained with: Pressure Procedural pain: 0 Post-procedural pain: 0 Response to treatment: Procedure was tolerated well PROVIDER ORDERS Patient Instructions PROVIDER ORDERS Go to ER if you are presenting with fever, chills, increased redness, pain, swelling, warmth aroundwound area and/or foul smelling odor. If you have any questions or concerns, please contact the [facility] at . Follow up(s)/ Referrals: N/A Chcf: care home facility: [facility] -Please have chain maker machine see patient, states she is losing a lot of weight, no appetite Additional Orders: -Increase protein in your diet to help promote wound healing Edema Control: If your compression wrap(s) feel to tight, please elevate your leg(s) about heart level. If your wrap(s) are becoming painful and/or you loose sensation of toes/ are having toe discoloration (a change from your baseline), please remove / unwrap compression and notify [facility] at . -Tubigrip to left lower extremity. Apply first thing in the morning prior to getting out of bed, OKto remove at bedtime. Ensure tubigrip extends from just behind the toes to about 2 finger widths below the knee. -right BKA- Michael wrap (make sure it is not bunching and causing breakdown behind the knee) -Elevate legs above heart level as much as possible Offloading: Limit pressure to wound as much as possible Negative Pressure Wound Therapy: N/A Cellular/Tissue Based Products: N/A Bathing / Showering / Hygiene: -Ok to shower with dressing on, then change dressing right after. Non-wound Condition/ Other Skin Care: Moisturize skin daily, avoiding wound area Wound Location(s): Wound #1 (Right BKA): Cleanser: Cleanse with normal saline Periwound: Apply Zinc Oxide to elsa wound Topical: N/A Primary dressing: Collagen with Silver- will dissolve in wound. If not dissolving you may moisten with saline prior to covering. Secondary dressinx9 ABD pad Secure with: Kerlix wrap, 1 paper tape Compression Therapy: 4 Michael Wrap Dressing Change Frequency: Daily Wound #2 (Right abdominal fold): Cleanser: Cleanse with Normal Saline Periwound: Other: Miconazole 2% cream to superficial reddened areas Topical: N/A Primary dressing: Hydrofiber with silver (Aquacel AG)- cut to fit to wound bed (to deeper wound area) Secondary dressinx4 Foam border dressing (if able to stay in place) Secure with: N/A Compression Therapy: N/A Dressing Change Frequency: Daily Wound #3 (Left great toe): Cleanser: Cleanse with Normal Saline Periwound: N/A Topical: Mupirocin 2% ointment- Apply a thin layer to wound bed Primary dressing: N/A Secondary dressinx2 woven gauze ( non-sterile) Secure with: 2 conforming gauze roll, 1 paper tape Compression Therapy: N/A Dressing Change Frequency: Daily 05/26/2025 12:35 PM EST Emma Garcias MD * Krissy Ren RN - 05/26/2025 10:30 AM EST Discharge Patient directed to check out at front desk administrator and collect visit summary with wound care directions and book follow up as directed. Dressings applied: Wound Location(s): Wound #1 (Right BKA): Cleanser: Cleanse with normal saline Periwound: Apply Zinc Oxide to elsa wound Topical: N/A Primary dressing: Collagen with Silver- will dissolve in wound. If not dissolving you may moisten with saline prior to covering. Secondary dressinx9 ABD pad Secure with: Kerlix wrap, 1 paper tape Compression Therapy: 4 Michael Wrap Dressing Change Frequency: Daily Wound #2 (Right abdominal fold): Cleanser: Cleanse with Normal Saline Periwound: Other: Miconazole 2% cream to superficial reddened areas Topical: N/A Primary dressing: Hydrofiber with silver (Aquacel AG)- cut to fit to wound bed (to deeper wound area) Secondary dressinx4 Foam border dressing (if able to stay in place) Secure with: N/A Compression Therapy: N/A Dressing Change Frequency: Daily Wound #3 (Left great toe): Cleanser: Cleanse with Normal Saline Periwound: N/A Topical: Mupirocin 2% ointment- Apply a thin layer to wound bed Primary dressing: N/A Secondary dressinx2 woven gauze ( non-sterile) Secure with: 2 conforming gauze roll, 1 paper tape Compression Therapy: N/A Dressing Change Frequency: Daily Dressing technique was demonstrated and explained. Patient questions answered. Pt departed from wound care center without issue or incidence. documented in this encounter Plan of Treatment Upcoming Encounters Date Type Department Care Team (Late st Contact Info) Description 06/09/2025 11:00 AM EST Clinical Support [facility] [address] [place] [phone] 11/17/2025 2:00 PM EDT Office Visit Gastroenterology - [facility] [address] [phone] [place] [address] [phone] documented as of this encounter Goals Goal Patient Goal Type Associated Problems Recent Progress Patient-Stated? Author Decrease Wound Volume by X% by date (in notes) Care Plan Impaired Tissue On track( 4:25 PM EST) Ericka Anderson RN Patient and Caregiver Understand Wound Care Education Care Plan Impaired Tissue On track( 4:25 PM EST) Ericka Anderson RN Wound volume breakdown reduced by X% by week 4 Care Plan Impaired Tissue No Ericka Chavarria RN Wound volume breakdown reduced by X% by week 8 Care Plan Impaired Tissue Ericka Anderson RN Wound volume breakdown reduced by X% by week 12 Care Plan Impaired Tissue Ericka Anderson RN Quit using tobacco (cigarettes, smokeless, etc) Care Plan Education needed on impact of smoking on wound No Ericka Chavarria RN Reduce tobacco use (cigarettes, smokeless, etc) Care Plan Education needed on impact of smoking on wound No Ericka Chavarria RN Decrease Wound Volume by X% by date (in notes) Care Plan Education needed on impact of smoking on wound Ericka Anderson RN Patient and Caregiver Understand Wound Care Education Care Plan Education needed related to ulceration/compr omised skin integrity. No Ericka Chavarira RN documented as of this encounter Procedures Procedure Name Priority Date/Time Associated Diagnosis Comments DEBRIDEMENT Routine 05/26/2025 10:30 AM EST Other complications of amputation stump ([facility] V24, [facility] V28) Non-pressure chronic ulcer of other part of right lower leg with fat layer exposed ([facility] V24, [facility] V28) Acquired absence of right leg below knee ([facility] V24, [facility] V28) documented in this encounter Results * Debridement Dehiscence of Surgical Wound (Cluster ) Right;Lower;Other (Comment) (BKA) Leg (BKA amputation site ) (05/26/2025 10:30 AM EST) Narrative Emma Garcias MD - 05/26/2025 10:30 AM EST Emma Garcias MD 05/26/2025 12:36 PM Debridement Dehiscence of Surgical Wound (Cluster ) Right;Lower;Other (Comment) (BKA) Leg (BKA amputation site ) Performed by: Emma Garcias MD Authorized by: Emma Garcias MD Associated wounds: Wound Dehiscence of Surgical Wound 09/27/19 Leg Right;Lower;Other (Comment) Consent: Consent obtained: Verbal Consent given by: Patient Risks discussed: Yes Time out: Immediately prior to the procedure a time out was called Time out performed at: 05/26/2025 11:27 AM Debridement Details: Performed by: Physician Type: selective Pain control: Lidocaine 5% Pain control administration: topical anesthesia Severity of Tissue Pre Debridement: Fat layer exposed Severity of Tissue Post Debridement: Fat layer exposed Time taken: 05/26/2025 10:45 AM Length (cm): 0.3 Width (cm): 1.7 Depth (cm): 0.2 Area (cm^2): 0.4 Time taken: 05/26/2025 10:46 AM Length (cm): 0.3 Width (cm): 1.7 Depth (cm): 0.2 Percent Debrided (%): 100 Surface Area (cm^2): 0.4 Area Debrided (cm^2): 0.4 Volume (cm^3): 0.05 Devitalized tissue debrided: fibrin and slough Devitalized tissue debrided comment: Devitalized skin Instrument: Blade and forceps Amount of bleeding: small Hemostasis obtained with: Pressure Procedural pain: 0 Post-procedural pain: 0 Response to treatment: Procedure was tolerated well us Emma Garcias MD IN CLINIC/BEDSIDE ORDERAB LES Final Result documented in this encounter Visit Diagnoses Diagnosis Other complications of amputation stump ([facility] V24, [facility] V28)- Primary Non-pressure chronic ulcer of other part of right lower leg with fat layer exposed ([facility] V24, [facility] V28) Acquired absence of right leg below knee ([facility] V24, [facility] V28) Dermatitis associated with moisture Open wound of abdomen, subsequent encounter Non-pressure chronic ulcer of skin of other sites with fat layer exposed ([facility] V24, [facility] V28) Abrasion of left great toe, initial encounter Non-pressure chronic ulcer of other part of left foot limited to breakdown of skin ([facility] V24, [facility] V28) documented in this encounter Additional Health Concerns Active Problems Noted Date Diagnosed Date Impaired Tissue 04/22/2024 Education needed on impact of smoking on wound 1 06/22/2023 Education needed related to ulceration/compromised skin integrity. 04/22/2024 Infection Onset Date Last Indicated Resolved Time ESBL 05/14/2025 05/14/2025 Assessment Noted Time PHQ-9 Depression Total Score: 0 07/15/19 25 2:03 PM EST documented as of this encounter Care Teams Jacket Preparer Relationship Specialty Start Date End Date Sheridan Logan MD [address] [place] [id number] PCP - General Internal Medicine 04/30/12 documented as of this encounter
[2025-05-30 11:26] VITALS: BP 110/72; PULSE 62; O2SAT 98
--- NOTE | 2025-05-30 11:26 | A.OFFVIS_ITS ---
Vital Signs 05/30/25 11:26 Height 5 ft 3 in BP 110/72 Blood Pressure Location Rt brachial Position Sitting Pulse 62 Pulse Source Pulse Oximeter Pulse Oximetry (%) 98 Oxygen Delivery Method Room Air Intake Visit Reasons: Follow up Drafter Civil Required: No Accompanied by: Self / Same As Patient Allergies latex Allergy (Severe, Verified 08/07/24 13:09) Rash metoclopramide (From Reglan) Allergy (Severe, Verified 08/07/24 13:09) Shortness of Breath morphine Allergy (Severe, Verified 08/07/24 13:09) Hallucinations Sulfa (Sulfonamide Antibiotics) Allergy (Severe, Verified 08/07/24 13:09) Rash HPI Comments Details: 70y/o female presents for a f/u of migraines due to cervicalgia, worsening tremors, and restless legs syndrome. Farida her niece is here today and helps with history taking. She was diagnosed with tremors 3 years ago, and usually with action or postural. Tremors improve when she brings her hands to her body and holds them there. She thinks she was diagnosed with Parkinsons, her head shakes back and forth, voice tremors, has drooling, speech is slurred, denies dysphagia, and difficulty chewing. She has bilateral upper extremities tremors and weakness, r>l, and worsen with anxiety or stress. She drops things, handwriting is shaky. She is taking Primidone without much relief of symptoms. She was diagnosed with lindsey and has difficulty with compliance due to discomfort since her l. shoulder surgery in September 2024, as she is unable to sleep in a hosptial bed.She started having headaches due to snoring loudly, gasping for air and waking herself up multiple times a night. She also reports neck pain and has 2 headaches per week and takes tylenol as needed which helps to alleviate the headaches.She needs help with all her ADLs showering, toileting, finances, groceries, dressing herself, she can feed herself. Vision is poor has macular degeneration, gets VEGF injections in her eyes and h/o glaucoma. Followed by [facility] and lasik. Dr. Mosley and Ethan. RLS symptoms bilaterally with sharp paresthesias, and pain in her feet and calves at night with a twitching discomfort radiating into the thighs, the symptoms are severe and ropinirole is ineffective despite increasing her dose. Denies falls, is in her wheelchair 90% of the time r. leg was amputated due to cellulitis /infection. She attends physical therapy for the shoulder at her rehab facility. Her diet is poor, has constipation at baseline, takes miralax, does not drink enough water. Memory is poor forgets her medications and many tasks, needs reminders. PMH She was under the care of Dr. Damon until he retired. He was treating her with Botox for migraines and, primidone for tremors, along with ropinirole for RLS symptoms. She reports abnormal movements and tingling burning in her feet at rest and at night. Ropinirole helps. l. foot toe is red and painful. She started having frequent migraines around 20 headache days a month, lasting 2 days, and now improved has 2 per month. Her headaches( pressure pounding) are frontal, and occipital with nausea, photophobia phonophobia, vomiting, sees bright spots , dizziness etc.she was tried on amitirptyline, depakote,gabapentin, propranolol, sumatriptan, maxalt, fioricet etc . [facility] Medical History Cervicalgia Hypothyroid HTN (hypertension) GERD (gastroesophageal reflux disease) Depression Hyperlipidemia Below-knee amputation of right lower extremity Diverticulosis DJD (degenerative joint disease) Chronic migraine with aura Coarse tremors Restless legs syndrome (RLS) Obstructive sleep apnea Irritable bowel disease MTHFR gene mutation DVT (deep venous thrombosis) Sciatica Osteoporosis Prediabetes Surgical History Hx of shoulder replacement Hx of above knee amputation Hx of knee surgery H/O: hysterectomy History of back surgery Family History Father Heart disease Parkinson disease Mother Heart disease COPD (chronic obstructive pulmonary disease) HTN (hypertension) Sleep apnea Sister Emphysema lung Glaucoma Thyroid condition Social History Alcohol intake: never Patient Tobacco Use Status: Never used Tobacco Physical Exam Vital Signs: Last Vital Signs Pulse 62 05/30/25 11:26 BP 110/72 05/30/25 11:26 Pulse Ox 98 05/30/25 11:26 Oxygen Delivery Method Room Air 05/30/25 11:26 pt is wheel chair bound. with right arm sling. Const General: cooperative, comfortable and no acute distress Orientation/consciousness: patient oriented x3 HEENT Teeth and gingiva: other Neck Other: limited rom on ext, flexion , and limited rom to the L>R. Resp Effort & Inspection: normal respiratory effort and able to speak in complete sentences Neuro Other: aster UE moderate amplitude postural action tremors and rare rest tremors. Normal tone Joint deformities due to arthritis that affects her hand movements. Right BKA General: patient oriented x3, tone normal, moves all extremities and Unable to assess gait Cranial nerves: Yes Nystagmus not present, Yes Normal facial strength present, Yes Midline tongue present, Yes Symmetric palate elevation present and Yes Ability to bilaterally elevate shoulders present Cognition (Neuro): normal cognition Speech: Other speech findings present (Neuro) (normal) Gait exam (Neuro): Unable to assess gait Motor exam (neuro): Abnormal motor strength present and Abnormal muscle tone present Coordination: other (FN - action tremors) Psych Appearance: grossly normal Attitude: cooperative Results Reviewed Results Reviewed: HST c/w AHI of 9 and oxygen nadirs to 82%. start cpap therapy at [id number] and monitor for compliance. Assessment & Plan Assessment & Plan (1) Coarse tremors: Code(s): G25.2 - Other specified forms of tremor Category: Medical (2) Restless legs syndrome (RLS): Code(s): G25.81 - Restless legs syndrome Category: Medical (3) Chronic migraine with aura: Code(s): G43.109 - Migraine with aura, not intractable, without status migrainosus Category: Medical Qualifiers: Intractability: not intractable Status migrainosus presence: without status migrainosus Qualified Code(s): G43.E09 - Chronic migraine with aura, not intractable, without status migrainosus (4) Obstructive sleep apnea: Comment: needs a smaller mask medium sized currently leaks, does not seal. Code(s): G47.33 - Obstructive sleep apnea (adult) (pediatric) Category: Medical (5) Cervicalgia: Code(s): M54.2 - Cervicalgia Category: Medical Plan Tremors primidone 100mg bid, pt would like to try carbidopa levodopa for the rest/ postural tremors. pt thinks she has Parkinsons? DATScan? to r/o due to fh + for Parkinsons maternal grandfather. Restless legs takes Ropinirole 0.5mg 1-1-2 Increased gabapentin 300mg to qid, pt's niece says it makes her groggy , may decrease this to 200mg TID if this helps. LINDSEY f/u with DR. 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 I have written a rx for a full face mask with humidification hoses and chin straps. Migraines start magnesium 400mg po daily at bedtime may take 3 x a week if you have loose stools. Neck tremors pain, limited rom to the left continue with PT for neck. Labs requested from PCP, A1c is not completed patient's niece thinks she is diabetic, would like to have test completed, will defer to her pcp Dr. Logan in [place] or her rehab facility. f/u in 6months or sooner as needed. Medications: New magnesium oxide 400 mg PO DAILY 90 tabs 0RF Refilled primidone 100 mg (2 x 50 mg) PO BID 120 tabs 6RF gabapentin 300 mg PO QID 120 caps 1RF ropinirole 1 tab qam and 1 tab q noon 4 tabs qhs orally; 180 tabs 6RF Patient Instructions: Please complete the following fasting labs to rule out deficiencies. CBC/CMP/ B12/ Vit D/ TSH/ Homocysteine and MMA/ Ferritin. Sleep Hygiene provided: set a scheduled bedtime and wake time to help regulate the circadian rhythm and balance the release of pituitary hormones. Sleep in a dark room, temperatures below 68 degrees, and no devices n bed. Limit caf feinated products 6 hours prior to bed, and limit fluids 2-4 hours prior to bed. Gentle night yoga, diffusing essential oils, and playing soft music can be relaxing. Coding Level of Care Code Est Pt Level 4 (89027) Diagnoses Coarse tremors G25.2 Restless legs syndrome (RLS) G25.81 Chronic migraine with aura without status migrainosus, not intractable G43.E09 Intractability: not intractable Status migrainosus presence: without status migrainosus Obstructive sleep apnea G47.33 Cervicalgia M54.2
--- OUTSIDE RECORDS SUMMARY | 2025-05-30 11:28 | XMS_ITS ---
Author Name [facility] Organization Unknown Care Team Organization Name Specialty Phone Email Start Date End Da te [facility] ACO 01/22/2025 [facility] Leila Marc Primary [facility] 11/11/2022 024 [facility] Steven Logan Primary Care 04/12/2022 01/22/2024
--- OUTSIDE RECORDS SUMMARY | 2025-05-30 11:28 | XMS_ITS | Clinical Summary ---
Author Organization [facility] Address [address] [place] [address] Phone Care Team Providers Care Helpdesk Manager Name Role Phone Sheridan Logan MD Primary Care Provider [phone] Allergies Active Allergy Reactions Criticality Noted Date Comments Ketorolac Hives 04/20/2006 Latex Hives,Rash 03/22/2005 Levofloxacin Rash 03/06/2024 Metoclopramide Shortness of breath,Swelling High 03/22/2005 Morphine Disorientated,Halluc inat ions 03/22/2005 Sulfa (Sulfonamide Antibiotics) Hives,Rash 06/20/2011 Sulfamethoxazole-Trimethoprim Hives 2022 Tetracyclines Hives,Rash 06/20/2011 Medications albuterol HFA (PROAIR HFA ; PROVENTIL HFA ; VENTOLIN HFA) 90 mcg/actuation inhaler Inhale 2 puffs by mouth. 3 Active aspirin 81 mg EC tablet Take 1 tablet (81 mg total) by mouth 1 (one) time each day. 4 Active atropine 1 % ophthalmic solution 4 Active brimonidine (ALPHAGAN) 0.2 % ophthalmic solution 1 (one) time each day. 4 Active cholecalciferol (VITAMIN D-3) 50 mcg (2,000 unit) capsule Take by mouth 1 (one) time each day. Active cyanocobalamin (VITAMIN B-12) 1,000 mcg tablet Take 1 tablet (1,000 mcg total) by mouth 1 (one) time each day. 2 Active dicyclomine (BENTYL) 10 mg capsule Take 1 capsule (10 mg total) by mouth. 3 Active Flovent HFA 110 mcg/actuation inhaler Inhale by mouth. 3 Active fluticasone furoate-vilante roL (BREO ELLIPTA) 200-25 mcg/dose inhaler Inhale 1 puff by mouth. 4 Active metoprolol tartrate (LOPRESSOR) 25 mg tablet Take 1 tablet (25 mg total) by mouth 2 (two) times a day. 9 Active nystatin (MYCOSTATIN) ointment Apply to affected area up to 4 times daily as needed 3 Active primidone (MYSOLINE) 50 mg tablet Take 2 tablets (100 mg total) by mouth. 3 Active prochlorperazin e (COMPAZINE) 5 mg tablet Take 1 tablet (5 mg total) by mouth. 3 Active rOPINIRole (REQUIP) 0.25 mg tablet Take 2 tablets (0.5 mg total) by mouth 6 (six) times a day. Active mupirocin (BACTROBAN) 2 % ointment APPLY TOPICALLY FOR 3 TIMES A WEEK FOR WOUND CARE 4 Active ofloxacin (OCUFLOX) 0.3 % ophthalmic solution 4 Active Gemtesa 75 mg tablet tablet 4 Active cholecalciferol (VITAMIN D-3) 125 mcg (5,000 unit) capsule Take 1 capsule (5,000 Units total) by mouth 1 (one) time each day. 4 Active DULoxetine (CYMBALTA) [address] capsule 4 Active cholecalciferol (VITAMIN D-3) 50 mcg (2,000 unit) tablet Take 1 tablet (2,000 Units total) by mouth 1 (one) time each day. Active dorzolamide (TRUSOPT) 2 % ophthalmic solution Administer 1 drop into the left eye 2 (two) times a day. Active DULoxetine (CYMBALTA) [address] capsule TAKE 2 CAPSULES BY MOUTH EVERY DAY 180 capsule 1 4 Active Additional Information Patient taking differently: 20 mgoral Daily, Reported on 04/07/2025 pravastatin (PRAVACHOL) 80 mg tablet Take 1 tablet (80 mg total) by mouth 1 (one) time each day. 90 tablet 1 4 Active Additional Information Patient taking differently: 40 mgoral Daily, Reported on 04/07/2025 gabapentin (NEURONTIN) 300 mg capsule Take 1 capsule (300 mg total) by mouth 3 (three) times a day. 270 each 1 4 Active omeprazole (PriLOSEC) [address] capsule TAKE 1 CAPSULE BY MOUTH DAILY FOR 360 DAYS. 90 capsule 3 5 Active Additional Information Patient taking differently: 20 mg, Reported on 04/07/2025 latanoprost (XALATAN) 0.005 % ophthalmic solution INSTILL 1 DROP INTO BOTH EYES EVERY DAY AT NIGHT 5 Active linaCLOtide (Linzess) 290 mcg capsule Take 1 capsule (290 mcg total) by mouth 1 (one) time each day before breakfast. 30 capsule 3 5 Active Additional Information Patient taking differently: 145 mcgoral Every morning before breakfast, Reported on 04/07/2025 senna-docusate (PERICOLACE) 8.6-50 mg per tablet Take 1 tablet by mouth 2 (two) times a day. 60 each 3 5 06/25/19 26 Active Gavilax 17 gram/dose oral powder TAKE 17 GRAMS BY MOUTH ONCE EVERY DAY 510 g 3 5 Active clotrimazole (LOTRIMIN) 1 % cream APPLY DAILY ON RASH 30 g 5 5 Active spironolactone (ALDACTONE) 25 mg tablet Take 1 tablet (25 mg total) by mouth 1 (one) time each day. 90 each 1 5 Active losartan (Cozaar) 50 mg tablet Take 1 tablet (50 mg total) by mouth 1 (one) time each day. 90 each 1 5 Active torsemide (DEMADEX) 20 mg tablet Take 1-2 tablets (20-40 mg total) by mouth 2 (two) times a day. 360 tablet 5 Active Additional Information Patient taking differently: 40 mgoral 2 times daily, Reported on 04/07/2025 amoxicillin (AMOXIL) 875 mg tablet Take 1 tablet (875 mg total) by mouth twice a day. For cellulitsis right leg started on 11/01/24 until 11/08/24 Active allopurinoL (ZYLOPRIM) 100 mg tablet TAKE 1 TABLET BY MOUTH EVERY DAY 90 tablet 5 Active levothyroxine (SYNTHROID, LEVOTHROID) 150 mcg tablet TAKE 1 TABLET BY MOUTH DAILY 90 tablet 5 Active cefpodoxime (VANTIN) 200 mg tablet Take 1 tablet (200 mg total) by mouth 2 (two) times a day. Take 2 tablets twice a day for cellulitis for 7 days started on 01/14/25 ends 01/21/25 5 Active hydrOXYzine HCL (ATARAX) 25 mg tablet Take 1 tablet (25 mg total) by mouth every 6 (six) hours if needed for itching. Active traZODone (DESYREL) 50 mg tablet Take 0.5 tablets (25 mg total) by mouth at bedtime as needed. Active docusate sodium (COLACE) 100 mg capsule Take 1 capsule (100 mg total) by mouth 2 (two) times a day if needed for constipation. Active cranberry fruit (cranberry) 450 mg tablet Take 1 tablet (450 mg total) by mouth 1 (one) time each day. Active d-mannose 500 mg capsule Take 500 mg by mouth 1 (one) time each day. Active divalproex (DEPAKOTE) [address] tablet Take 1 tablet (500 mg total) by mouth 1 (one) time each day. Do not crush, chew, or split. Active diclofenac (VOLTAREN) 1 % topical gel Apply 2 g topically 3 (three) times a day. Active HYDROmorphone (DILAUDID) 2 mg tablet Take 1 tablet (2 mg total) by mouth every 8 (eight) hours if needed for severe pain. 2-4mg q8h PRN Active ipratropium-alb uteroL (DUONEB) 0.5-2.5 mg/3 mL nebulizer solution Take 3 mL by nebulization 3 (three) times a day. And prn wheeze Active lidocaine 4 % patch Apply 1 patch topically 1 (one) time each day. To right shoulder Active nitrofurantoin (MACRODANTIN) 50 mg capsuleIndicati ons:prevention of bacterial urinary tract infection Take 1 capsule (50 mg total) by mouth 1 (one) time each day. UTI prophylaxis Active Active Problems Problem Noted Date Diagnosed Date Abrasion of great toe of left foot 05/26/2025 Non-pressure chronic ulcer o f other part of left foot limited to breakdown of skin 05/26/2025 Non-pressure chronic ulcer o f skin of other sites with fat layer exposed 04/21/2025 Abrasion of right knee 02/24/2025 Dermatitis associated with moisture 01/20/2025 Open wound of abdomen 01/20/2025 Chronic venous hypertension (idiopathic) with ulcer of right lower extremity (CODE) 08/05/2024 Non-pressure chronic ulcer o f other part of right lower leg limited to breakdown of skin 08/05/2024 Morbid (severe) obesity due to excess calories 0 07/29/2024 Cellulitis of right leg 07/01/2024 ISTAP type 1 skin tear of right lower extremity 05/20/2024 Acquired absence of right leg below knee 024 Other complications of amputation stump 05/06/20 Non-pressure chronic ulcer o f other part of right lower leg with fat layer exposed 04/08/2024 Closed fracture of tibia 03/06/2024 GERD (gastroesophageal reflux disease) Factor V Leiden 03/06/2024 HTN (hypertension) 03/06/2024 Migraine 03/06/2024 Congestive heart failure 11/29/2023 Diverticular disease 11/29/2023 Recurrent major depressive disorder 11/29/2023 Anemia 02/17/2022 Overview (03/06/2024): Capsule endoscopy neg 12/26 Osteoporosis without current pathological fractu re 2021 Overview (03/06/2024): Referred by [employer] to endo Dr. Garay 03/25 osteopenia back. Osteoporosis Femoral neck Urinary incontinence 12/16/2020 Impaired glucose tolerance 09/03/2020 Edema 07/30/2018 Obstructive sleep apnea 10/18/2016 Overview (03/06/2024): [facility] [place] study. Date 11/10/2016 . SE 76 % SM 80 %; spent 9 % of the study in REM. At the optimal pressure of 14/9 BiPAP; RDI 4.7 (AHI 4.7), Central apneas 3; Obstructive apneas 0; Mixed apneas 0; hypopneas 0; RERAs 0; and, average oxygen saturation was 901%. For the entire study, PLMs ~4. 11/2017 Home Sleep Study did not reveal sleep apnea but did reveal sleep related hypoxemia. [facility] [place]ysom[place]: Date 02/08/2018; E 96%; SM 97%; REM 13%; RDI 11 (AHI 11), REM (RDI 72 - AHI 72), Central apneas 1; Obstructive apneas 0; Mixed apneas 0; hypopneas 52; RERAs 0; average oxygen saturation 90% (lowest 75% - with saturations <88% for 5% or more of study); PLMs 0. - Obstructive Sleep Apnea - mild overall and severe in REM; mostly hypopneas; with sleep related hypoventilation by 2018 polysomnogram. DVT of upper extremity (deep vein thrombosis) Overview (03/06/2024): 11/10/14. Due to picc line and vancomycin S/P BKA (below knee amputation) 12/26/2014 Overview (03/06/2024): Right 2014. Postop MRSA infection Tremor 04/30/2012 Overview (03/06/2024): ?related to Reglan Ankle fracture 03/12/2012 Overview (03/06/2024): 07/2010--hardware associated osteomyelitis and wound dehiscence Chronic wound. Failed skin graft x 4. Last attempt 03/18. Amputation being recommended. DJD (degenerative joint disease) of knee 011 Overview (03/06/2024): S/p left TKR MTHFR mutation 07/28/2009 Overview (03/06/2024): Assoc with hypercyteinemia 2009 Carrier, 2 mutations.. Sister also with mutation and PE. Other sister neg. 07/19 Normal homocysteine, B6, B12, Folate 01/18 Hematology. MTHFR not clinically important. ?stop coumadin and serial DDimer checks. IBS (irritable bowel syndrome) 05/21/2008 Overview (03/06/2024): Mostly diarrhea. Onset about age 20's. Diverticulitis of colon without hemorrhage 04/10 Overview (03/06/2024): Incidental finding at colonoscopy 03/11/2003. Also identified on abdominal CT scan 11/19/2004, [facility]. 09/15 colonoscopy neg. Depression 03/22/2005 Overview (03/06/2024): Dr Felder Hypercholesteremia 03/22/2005 Low back pain 03/22/2005 Overview (03/06/2024): Dr Manrique, Dr Dominguez. Qualified for SSI disability approx 1995. Permanent neurostimulator 09/26 Headache Overview (03/06/2024): Dr Damon Hypothyroidism B12 deficiency Encounters Date Type Department Care Team Description 05/26/2025 10:30 AM EST Office Visit [facility] [address] [place] [phone] Emma Karimi MD Other complications of amputation stump ([facility] V24, [facility] V28) (Primary Dx); Non-pressure chronic ulcer of other part of right lower leg with fat layer exposed (CMS/HCC V24, CMS/HCC V28); Acquired absence of right leg below knee (CMS/HCC V24, CMS/[facility] V28); Dermatitis associated with moisture; Open wound of abdomen, subsequent encounter; Non-pressure chronic ulcer of skin of other sites with fat layer exposed (CMS/HCC V24, CMS/[facility] V28); Abrasion of left great toe, initial encounter; Non-pressure chronic ulcer of other part of left foot limited to breakdown of skin (CMS/HCC V24, CMS/[facility] V28) 05/15/2025 Lab Requisition [facility] [address] [facility] [place] [phone] Josefa Monroe MD Urinary tract infection, site not specified 05/12/2025 11:00 AM EST Office Visit [facility] [address] [place] [phone] Emma Karimi MD Other complications of amputation stump (CMS/HCC V24, CMS/HCC V28) (Primary Dx); Non-pressure chronic ulcer of other part of right lower leg with fat layer exposed (CMS/HCC V24, CMS/HCC V28); Acquired absence of right leg below knee (CMS/HCC V24, CMS/HCC V28); Dermatitis associated with moisture; Open wound of abdomen, subsequent encounter; Non-pressure chronic ulcer of skin of other sites with fat layer exposed (CMS/HCC V24, CMS/HCC V28) 04/21/2025 2:00 PM EST Office Visit [facility] [address] [place] [phone] Emma Karimi MD Other complications of amputation stump (CMS/HCC V24, CMS/HCC V28) (Primary Dx); Non-pressure chronic ulcer of other part of right lower leg with fat layer exposed (CMS/HCC V24, CMS/HCC V28); Acquired absence of right leg below knee (CMS/HCC V24, CMS/HCC V28); Dermatitis associated with moisture; Open wound of abdomen, initial encounter; Non-pressure chronic ulcer of skin of other sites with fat layer exposed (CMS/HCC V24, CMS/HCC V28) 04/17/2025 Lab Requisition [facility] [address] [facility] [place] [phone] Josefa Monroe MD Encounter for screening for cardiovascular disorders; Encounter for general adult medical examination without abnormal findings 04/07/2025 1:15 PM EST Office Visit [address] [phone] Emma Kraimi MD Other complications of amputation stump (CMS/HCC V24, CMS/HCC V28) (Primary Dx); Non-pressure chronic ulcer of other part of right lower leg with fat layer exposed (CMS/HCC V24, CMS/HCC V28); Acquired absence of right leg below knee (CMS/HCC V24, CMS/HCC V28); Abrasion of right leg, initial encounter 04/06/2025 Telephone Gastroenterology [facility] [address] [facility] [address] [phone] Grisel Ford PA 04/02/2025 Lab Requisition [facility] [address] [facility] [place] [phone] Kaitlin Rodriguez PA Urinary tract infection, site not specified 03/31/2025 2:00 PM EDT Office Visit Gastroenterology [facility] [address] [phone] Grisel Ford PA Chronic nausea (Primary Dx); Chronic constipation; Generalized abdominal pain 03/24/2025 1:15 PM EDT Office Visit [facility] [address] [place] [phone] Emma Karimi MD Other complications of amputation stump (CMS/HCC V24, CMS/HCC V28) (Primary Dx); Non-pressure chronic ulcer of other part of right lower leg with fat layer exposed (CMS/HCC V24, CMS/HCC V28); Acquired absence of right leg below knee (CMS/HCC V24, CMS/HCC V28) 03/14/2025 Lab Requisition [facility] [address] [facility] [place] [phone] Josefa Monroe MD Urinary tract infection, site not specified 03/10/2025 11:00 AM EDT Office Visit [facility] [address] [place] [phone] Jesus Duenas PA Other complications of amputation stump (CMS/HCC V24, CMS/HCC V28) (Primary Dx); Non-pressure chronic ulcer of other part of right lower leg with fat layer exposed ([facility] V24, [facility] V28); Acquired absence of right leg below knee ([facility] V24, [facility] V28); Abrasion of right knee, subsequent encounter from Last 3 Months Immunizations Immunization Administration Dates Next Due COVID-19 (Moderna/Spikevax) 12yo and older 07/31/2023 Influenza Quadravalent, MDCK , 0.5ml, preservative free (Flucelvax) 6mo and older 02/08/2019,02/21/2018 Influenza Quadravalent, MDCK , 0.5ml, with preservative (Flucelvax) 6mo and older 03/22/2017 Influenza Quadrivalent, 0.5m l, preservative free (Fluarix; FluLaval; Fluzone) ages 6mo and older (Afluria) 3yo and older 03/27/2020 Influenza trivalent, 0.5mL ( Fluad) 65yo and older 02/27/2024,05/22/2023,04/11/2022,03/05 Influenza trivalent, 0.5mL ( Fluzone High-dose) 65yo and older 05/22/2023,04/11/2022,2021 Influenza trivalent, 0.5mL, preservative free (Fluarix; FluLaval; Fluzone) ages 6mo and older (Afluria) 3 years and older 03/24/2016,02/11/2015,03/07/2013,03/12,02/26/2010,03/03/2008 Influenza trivalent, with pr eservative (Fluzone; Afluria) 6mo and older 03/24/2016,02/11/2015,03/07/2013,03/12,03/03/2011,02/26/2010,03/03/2008 Moderna SARS-CoV-2 COVID-19, mRNA, LNP-S, preservative free 07/31/2023,12/16/2021,10/09/2021 Pneumococcal conjugate 20 va lent (Prevnar 20, PCV 20) 2mo and older 05/22/2023 Pneumococcal polysaccharide 23 valent (Pneumovax 23) 2yo and older 09/29/2020 RSV, bivalent, protein subun it RSVpreF, 0.5mL, Preservative Free (Arexvy) 50yo and older 07/31/2023 Tdap Tetanus diptheria acell ular pertussis (Boostrix; Adacel) 7yo and older 12/30/2022,04/30/2012 Zoster recombinant (Shingrix ) 19yo and older 07/31/2023 Surgical History Surgery Date Site/Laterality Comments OTHER SURGICAL HISTORY PROCEDURE: [place] LAMOT PRTL FFD EXC DISC REEXPL 1 NTRSPC LUMBAR OTHER SURGICAL HISTORY PROCEDURE: [place] CLOSURE EXSTROPHY BLADDER OTHER SURGICAL HISTORY PROCEDURE: [place] TOTAL ABDOMINAL HYSTERECT W/WO RMVL TUBE OVARY OTHER SURGICAL HISTORY 08/2014 Right PROCEDURE: HISTORICAL BELOW KNEE AMP COLONOSCOPY 09/24/2012 PROCEDURE: HISTORICAL COLONOSCOPY; COMMENT: [email or web address]; diverticulosis. UPPER GASTROINTESTINAL ENDOSCOPY 09/24/2012 PROCEDURE: [place] UPPER GI ENDOSCOPY PERFORMED; COMMENT: [email or web address]; normal; gastric bx done for H. pylori; UPPER GASTROINTESTINAL ENDOSCOPY 08/03/2009 PROCEDURE: [place] UPPER GI ENDOSCOPY PERFORMED; COMMENT: normal UPPER GASTROINTESTINAL ENDOSCOPY 09/18/2006 PROCEDURE: [place] UPPER GI ENDOSCOPY PERFORMED; COMMENT: EGD plus duodenal biopsies, Dr. Que Adams, [facility], for the evaluation of abdominal pain and reflux. Everything looked normal. COLONOSCOPY 03/11/2003 PROCEDURE: HISTORICAL COLONOSCOPY; COMMENT: Colonoscopy plus biopsies for chronic diarrhea, [facility], Dr. Uriah Romero. No polyps or tumors. UPPER GASTROINTESTINAL ENDOSCOPY 02/27/2019 PROCEDURE: [place] UPPER GI ENDOSCOPY PERFORMED; COMMENT: Normal; duoenal bx: normal. COLONOSCOPY 02/27/2019 PROCEDURE: HISTORICAL COLONOSCOPY; COMMENT: Diverticulosis, otherwise normal, random biopsies obtained: Normal. HERNIA REPAIR 02/2021 PROCEDURE: HISTORICAL HERNIA REPAIR/UMB HERNIA REPAIR 02/2021 PROCEDURE: HISTORICAL HERNIA REPAIR/UMB Medical History Medical History Date Comments Other B-complex deficiencies 9.05 DX: Other B-complex deficiencies Phlebitis and thrombophlebit is of upper extremities, unspecified 05 DX:Phlebitis and thromb ophlebitis of upper extremities, unspecified Unspecified hypothyroidism 05 DX:Un specified hypothyroidism Essential hypertension, benign 3.10.05 D X:Essential hypertension, benign; COMMENT: 1997 Headache(784.0) 7..05 DX:Headache(784. 0); COMMENT: Dr Damon Pernicious anemia 11.26.05 DX:Pernicious anemia Depressive disorder, not els ewhere classified DX:Depressive disorder, not elsewhere classified; COMMENT: Dr Felder Disorder of bone and cartila ge, unspecified DX:Disorder of bone and cart ilage, unspecified Esophageal reflux DX:Esophageal reflux; COMMENT: Dr Adams Mixed hyperlipidemia DX:Mixed hy perlipidemia Cervical spondylosis without myelopathy DX:Cervical spondylosis with out myelopathy; COMMENT: Dr Manrique Special screening for malign ant neoplasms, colon 04/10/2008 DX:Special screening for mal ignant neoplasms, colon; COMMENT: Colonoscopy 03/11/2003, [facility], Dr. Uriah Romero. Diverticulosis only. Biopsies obtained, rule out microscopic colitis. No colon cancer screening necessary until 2012. Diverticulosis of colon (wit hout mention of hemorrhage) 04/10/2008 DX:Diverticulosis of colon ( without mention of hemorrhage); COMMENT: Incidental finding at colonoscopy 03/11/2003. IBS (irritable bowel syndrome) 05/21/2008 D X:IBS (irritable bowel syndrome); COMMENT: Mostly diarrhea. Onset about age 19's. Backache, unspecified 03/22/2005 DX:Backach e, unspecified; COMMENT: Dr Manrique, Dr Dominguez. Qualified for SSI disability approx 1995. Urinary incontinence 12/16/2020 DX:Urinary incontinence Family History Medical History Relation Name Comments Sleep apnea Brother 1 Lymphoma Brother 2 [facility] Coronary artery disease Father Hypertension Father Coronary artery disease Mother Hypertension Mother Thyroid disease Mother Osteoporosis Sister 1 Thyroid disease Sister 1 Arthritis Sister 2 Hyperlipidemia Sister 2 Macular degeneration Sister 2 Thyroid disease Sister 2 Other: Polycythemia Vera Sister 3 Relation Name Status Comments Brother 1 Alive Brother 2 (Age 34) Father Mother Sister 1 Alive Sister 2 Alive Sister 3 Alive Social History Tobacco Use Types Packs/Day Years Used Date Smoking Tobacco: Never Passive Smoke Exposure: Never Smokeless Tobacco: Never Tobacco Cessation:Counseling Given: Not Answered Alcohol Use Standard Drinks/Week Comments No 0 (1 standard drink = 0.6 oz pur e alcohol) Comments No Sex and Gender Information Value Date Recorded Sex Assigned at Not on file Legal Sex Female 6:41 AM EST Gender Identity Not on file Sexual Orientation Not on file Last Filed Vital Signs Vital Sign Reading Time Taken Comments Blood Pressure 112/52 05/26/2025 10:36 AM EST Pulse 71 05/26/2025 10:36 AM EST Temperature 36 C (96.8 F) 05/26/2025 10:36 AM EST Respiratory Rate 17 05/26/2025 10:36 AM EST Oxygen Saturation 94% 05/26/2025 10:36 AM EST Inhaled Oxygen Concentration - - Weight 88.1 kg (194 lb 3.2 oz) 03/31/2025 2:07 P M EDT Height 160 cm (5' 3 ) 03/31/2025 2:07 PM EDT Body Mass Index 34.4 03/31/2025 2:07 PM EDT Plan of Treatment Upcoming Encounters Date Type Department Care Team (Late st Contact Info) Description 06/09/2025 11:00 AM EST Clinical Support [facility] [address] [place] [phone] 11/17/2025 2:00 PM EDT Office Visit Gastroenterology - [address] [facility] [address] [place] [phone] Grisel Ford PA [address] [facility] [address] [place] [address] Health Maintenance Due Date Last Done Comments Hepatitis C Screening 05/14/2022 Medicare Annual Wellness Visit 05/14/2022 Social Influencers of Health Screening 05/14/2022 Zoster Vaccines (2 of 2) 09/25/2023 07/31/2023 Breast Cancer Screening 01/31/2025 01/31/2023 COVID-19 Vaccine ( season) 2025 07/31/2023, 07/31/2023, 12/16/2021, Additional history exists Influenza Vaccine (#1) 2025 , 05/22/2023, 05/22/2023, Additional history exists Falls Risk Assessment 07/15/2025 07/15/2024 Hypertension/CHF/CAD Annual BMP Blood Test 04/17/2026 04/17/2025, 01/27/2025, 11/18/2024, Additional history exists Cholesterol Screening (Lipid Panel) 01/27/2030 01/27/2025, 05/14/2024, 02/27/2024 Colorectal Cancer Screening: Colonoscopy 06/30/2032 06/30/2022 Osteoporosis Screening (Bone Density Screening) 09/08/2032 09/08/2022 DTaP,Tdap,and Td Vaccines (3 - Td or Tdap) 12/30/2032 12/30/2022, 04/30/2012 Pneumococcal Vaccine: 50+ Years Completed 05/22/2023, 09/29/2020 RSV Immunization Adult Patients Completed 07/31/2023 Depression Screening Completed 07/15/2024 HIB Vaccines Aged Out No longer eligi ble based on patient's age to complete this topic HPV Vaccines Aged Out No longer eligi ble based on patient's age to complete this topic Hepatitis A Vaccines Aged Out No long er eligible based on patient's age to complete this topic Hepatitis B Vaccines Aged Out No long er eligible based on patient's age to complete this topic IPV Vaccines Aged Out No longer eligi ble based on patient's age to complete this topic MMR Vaccines Aged Out No longer eligi ble based on patient's age to complete this topic Meningococcal ACWY Vaccine Aged Out N o longer eligible based on patient's age to complete this topic Meningococcal B Vaccine Aged Out No l onger eligible based on patient's age to complete this topic RSV Immunization Patients Under 20 months Aged Out No longer eligible based on patient's age to complete this topic Varicella Vaccines Aged Out No longer eligible based on patient's age to complete this topic Goals Goal Patient Goal Type Associated Problems Recent Progress Patient-Stated? Author Decrease Wound Volume by X% by date (in notes) Care Plan Impaired Tissue On track( 025 4:25 PM EST) No Ericka Chavarria RN Patient and Caregiver Understand Wound Care Education Care Plan Impaired Tissue On track( 025 4:25 PM EST) Ericka Anderson RN Wound volume breakdown reduced by X% by week 4 Care Plan Impaired Tissue No Ericka Chavarria RN Wound volume breakdown reduced by X% by week 8 Care Plan Impaired Tissue No Ericka Chavarria RN Wound volume breakdown reduced by X% by week 12 Care Plan Impaired Tissue No Ericka Chavarria RN Quit using tobacco (cigarettes, smokeless, etc) Care Plan Education needed on impact of smoking on wound No Ericka Chavarrai RN Reduce tobacco use (cigarettes, smokeless, etc) Care Plan Education needed on impact of smoking on wound No Ericka Chavarria RN Decrease Wound Volume by X% by date (in notes) Care Plan Education needed on impact of smoking on wound No Ericka Chavarria RN Patient and Caregiver Understand Wound Care Education Care Plan Education needed related to ulceration/compr omised skin integrity. No Ericka Chavarria RN Procedures Procedure Name Priority Date/Time Associated Diagnosis Comments DEBRIDEMENT Routine 05/26/2025 10:30 AM EST Other complications of amputation stump (CMS/HCC V24, CMS/HCC V28) Non-pressure chronic ulcer of other part of right lower leg with fat layer exposed (CMS/HCC V24, CMS/HCC V28) Acquired absence of right leg below knee (CMS/HCC V24, CMS/HCC V28) URINALYSIS WITH REFLEX MICROSCOPIC AND CULTURE Routine 05/14/2025 12:00 AM EST Urinary tract infection, site not specified URINALYSIS WITH REFLEX MICROSCOPIC AND CULTURE Routine 05/14/2025 12:00 AM EST Urinary tract infection, site not specified CULTURE URINE Routine 05/14/2025 12:00 AM EST Urinary tract infection, site not specified CBC WITH AUTO DIFFERENTIAL Routine 04/17/2025 8:20 AM EST Encounter for screening for cardiovascular disorders Encounter for general adult medical examination without abnormal findings BASIC METABOLIC PANEL Routine 04/17/2025 8:20 AM EST Encounter for screening for cardiovascular disorders Encounter for general adult medical examination without abnormal findings CBC AND DIFFERENTIAL Routine 04/17/2025 8:20 AM EST Encounter for screening for cardiovascular disorders Encounter for general adult medical examination without abnormal findings DEBRIDEMENT Routine 04/07/2025 1:15 PM EST Other complications of amputation stump (CMS/HCC V24, CMS/HCC V28) Non-pressure chronic ulcer of other part of right lower leg with fat layer exposed (CMS/HCC V24, CMS/HCC V28) URINALYSIS WITH REFLEX MICROSCOPIC Routine 04/01/2025 8:00 PM EDT Urinary tract infection, site not specified URINALYSIS WITH REFLEX MICROSCOPIC Routine 04/01/2025 8:00 PM EDT Urinary tract infection, site not specified CULTURE URINE Routine 04/01/2025 8:00 PM EDT Urinary tract infection, site not specified URINALYSIS WITH REFLEX MICROSCOPIC Routine 03/13/2025 10:00 AM EDT Urinary tract infection, site not specified URINALYSIS WITH REFLEX MICROSCOPIC Routine 03/13/2025 10:00 AM EDT Urinary tract infection, site not specified CULTURE URINE Routine 03/13/2025 10:00 AM EDT Urinary tract infection, site not specified DEBRIDEMENT Routine 03/10/2025 11:00 AM EDT Other complications of amputation stump (CMS/HCC V24, CMS/HCC V28) Non-pressure chronic ulcer of other part of right lower leg with fat layer exposed (CMS/HCC V24, CMS/HCC V28) Acquired absence of right leg below knee (CMS/HCC V24, CMS/HCC V28) LIPID PANEL WITH REFLEX TO DIRECT LDL Routine 01/27/2025 10:40 AM EDT Hypercholesteremia from Last 3 Months or Most Recently Relevant to Health Maintenance Results * Debridement Dehiscence of Surgical Wound (Cluster ) Right;Lower;Other (Comment) (BKA) Leg (BKA amputation site ) (05/26/2025 10:30 AM EST) Narrative Emma Karimi MD - 05/26/2025 10:30 AM EST Emma Karimi MD 05/26/2025 12:36 PM Debridement Dehiscence of Surgical Wound (Cluster ) Right;Lower;Other (Comment) (BKA) Leg (BKA amputation site ) Performed by: Emma Karimi MD Authorized by: Emma Karimi MD Associated wounds: Wound Dehiscence of Surgical [...] treatment: Procedure was tolerated well us Emma Karimi MD IN CLINIC/BEDSIDE ORDERAB LES Final Result * Urinalysis with reflex microscopic and culture (05/14/2025 12:00 AM EST) Specific [place] Urine 1.015 1.003 - 1.030 LAB URINALYSIS - AUTOMATED METHOD 05/15/2025 10:17 AM [facility] pH, Urine 6.0 5.0 - 8.0 pH LAB URINALYSIS - AUTOMATED METHOD 05/15/2025 10:17 AM [facility] Leukocytes, Urine Negative Negative LAB URINALYSIS - AUTOMATED METHOD 05/15/2025 10:17 AM [facility] Nitrite, Urine Negative Negative LAB URINALYSIS - AUTOMATED METHOD 05/15/2025 10:17 AM [facility] Protein, Urine Negative <=Trace mg/dL LAB URINALYSIS - AUTOMATED METHOD 05/15/2025 10:17 AM [facility] Glucose, Urine Negative Negative mg/dL LAB URINALYSIS - AUTOMATED METHOD 05/15/2025 10:17 AM [facility] Ketones, Urine Negative Negative mg/dL LAB URINALYSIS - AUTOMATED METHOD 05/15/2025 10:17 AM [facility] Urobilinogen, Urine 0.2 0.2 - 1.0 mg/dL LAB URINALYSIS - AUTOMATED METHOD 05/15/2025 10:17 AM [facility] Bilirubin, Urine Negative Negative LAB URINALYSIS - AUTOMATED METHOD 05/15/2025 10:17 AM [facility] Blood, Urine Negative Negative LAB URINALYSIS - AUTOMATED METHOD 05/15/2025 10:17 AM [facility] Urine Urine specimen obtained by clean catch procedure / Unknown Non-blood Collection / Unknown 05/14/2025 05/15/2025 9:34 AM EST us Josefa Monroe MD LAB URINE ORDERABLES Final Resu lt [facility] [address] [place] [address], * (ABNORMAL) Culture urine (05/14/2025 12:00 AM EST) Only the most recent of3 resultswithin the time period is included. Culture, Urine >=100,000 CFU/mL Proteus mirabilis ESBL(A) AARON 05/19/2025 8:00 AM [facility] Comment: THIS ORGANISM IS POSITIVE FOR EXTENDED SPECTRUM BETA-LACTAMASE (ESBL). EXTENDED SPECTRUM BETA-LACTAMASE PRODUCING ORGANISMS DEMONSTRATE DECREASED ACTIVITY WITH PENICILLINS, CEPHALOSPORINS AND AZTREONAM. Edited result: Previously reported as Proteus species on 05/17/2025 at 1040 EST. Culture, Urine 50,000-100,000 CFU/mL Escherichia coli ESBL(A) AARON 05/19/2025 8:00 AM EST [facility] Comment: THIS ORGANISM IS POSITIVE FOR EXTENDED SPECTRUM BETA-LACTAMASE (ESBL). EXTENDED SPECTRUM BETA-LACTAMASE PRODUCING ORGANISMS DEMONSTRATE DECREASED ACTIVITY WITH PENICILLINS, CEPHALOSPORINS AND AZTREONAM. The organism value for this result has been updated. These results have been appended to the previously preliminary verified report. This is an edited result. Previous organism was Gram negative bacilli on 05/17/2025 at 1040 EST. Edited result: Previously reported as Escherichia coli on 05/18/2025 at 0812 EST. Urine Urine specimen obtained by clean catch procedure / Unknown Non-blood Collection / Unknown 05/14/2025 05/15/2025 9:34 AM EST Narrative Organism Antibiotic Method Susceptibility Proteus mirabilis ESBL Ampicillin/Sulbactam AARON >=32 ug/ml: Resistant Proteus mirabilis ESBL Piperacillin/Tazobactam AARON <=4 ug/ml: Susceptible Proteus mirabilis ESBL Cefazolin (Urine) AARON >=32 ug/ml: Resistant Proteus mirabilis ESBL Cefoxitin AARON 32 ug/ml: Resistant Proteus mirabilis ESBL Ceftazidime AARON 8 ug/ml: Intermediate Proteus mirabilis ESBL Ceftriaxone AARON 4 ug/ml: Resistant Proteus mirabilis ESBL Cefepime AARON 1 ug/ml: Susceptible Proteus mirabilis ESBL Meropenem AARON 0.5 ug/ml: Susceptible Proteus mirabilis ESBL Amikacin AARON 4 ug/ml: Susceptible Proteus mirabilis ESBL Gentamicin AARON <=1 ug/ml: Susceptible Proteus mirabilis ESBL Ciprofloxacin AARON >=4 ug/ml: Resistant Proteus mirabilis ESBL Nitrofurantoin AARON 128 ug/ml: Resistant Proteus mirabilis ESBL Trimethoprim/Sulf amethoxazol e AARON >=320 ug/ml: Resistant Escherichia coli ESBL Amoxicillin/Clavulanate AARON >=32 ug/ml: Resistant Escherichia coli ESBL Ampicillin/Sulbactam AARON >=32 ug/ml: Resistant Escherichia coli ESBL Piperacillin/Tazobactam AARON 32 ug/ml: Resistant Escherichia coli ESBL Cefazolin (Urine) AARON >=32 ug/ml: Resistant Escherichia coli ESBL Cefoxitin AARON >=64 ug/ml: Resistant Escherichia coli ESBL Ceftazidime AARON >=32 ug/ml: Resistant Escherichia coli ESBL Ceftriaxone AARON >=64 ug/ml: Resistant Escherichia coli ESBL Cefepime AARON 0.5 ug/ml: Susceptible Escherichia coli ESBL Meropenem AARON <=0.25 ug/ml: Susceptible Escherichia coli ESBL Amikacin AARON 4 ug/ml: Susceptible Escherichia coli ESBL Gentamicin AARON <=1 ug/ml: Susceptible Escherichia coli ESBL Ciprofloxacin AARON <=0.06 ug/ml: Susceptible Escherichia coli ESBL Levofloxacin AARON <=0.12 ug/ml: Susceptible Escherichia coli ESBL Nitrofurantoin AARON <=16 ug/ml: Susceptible Escherichia coli ESBL Trimethoprim/Sulfa methoxazol e AARON <=20 ug/ml: Susceptible Josefa Monroe MD LAB MICROBIOLOGY - GENERAL [facility] Final Result [facility] [address] [place] [address], * (ABNORMAL) CBC auto differential (04/17/2025 8:20 AM EST) WBC 7.8 4.8 - 10.8 K/mcL LAB HEMETOLOGY METHOD 04/17/2025 11:28 AM EST [facility] RBC 5.00(H) 3.80 - 4.80 M/mcL LAB HEMETOLOGY METHOD 04/17/2025 11:28 AM EST [facility] Hemoglobin 13.2 11.5 - 16.0 g/dL LAB HEMETOLOGY METHOD 04/17/2025 11:28 AM EST [facility] Hematocrit 42.3 35.0 - 47.0 % LAB HEMETOLOGY METHOD 04/17/2025 11:28 AM EST [facility] MCV 84.4 79.0 - 98.0 FL LAB HEMETOLOGY METHOD 04/17/2025 11:28 AM [facility] MCH 26.3(L) 27.0 - 32.0 pcg LAB HEMETOLOGY METHOD 04/17/2025 11:28 AM [facility] MCHC 31.2(L) 32.0 - 37.0 g/dL LAB HEMETOLOGY METHOD 04/17/2025 11:28 AM [facility] RDW 15.7(H) 11.0 - 15.0 % LAB HEMETOLOGY METHOD 04/17/2025 11:28 AM [facility] Platelets 294 130 - 400 K/mcL LAB HEMETOLOGY METHOD 04/17/2025 11:28 AM [facility] MPV 10.5 7.0 - 11.0 FL LAB HEMETOLOGY METHOD 04/17/2025 11:28 AM [facility] NRBC 0.0 <1.0 % LAB HEMETOLOGY METHOD 04/17/2025 11:28 AM [facility] NRBC Absolute 0.00 <0.10 K/mcL LAB HEMETOLOGY METHOD 04/17/2025 11:28 AM [facility] Neutrophils Relative 69.6 % LAB HEMETOLOGY METHOD 04/17/2025 11:28 AM [facility] Lymphocytes Relative 17.6 % LAB HEMETOLOGY METHOD 04/17/2025 11:28 AM [facility] Monocytes Relative 8.6 % LAB HEMETOLOGY METHOD 04/17/2025 11:28 AM [facility] Eosinophils Relative 3.3 % LAB HEMETOLOGY METHOD 04/17/2025 11:28 AM [facility] Basophils Relative 0.4 % LAB HEMETOLOGY METHOD 04/17/2025 11:28 AM [facility] Immature Granulocytes Relative 0.5 % LAB HEMETOLOGY METHOD 04/17/2025 11:28 AM EST [facility] Neutrophils Absolute 5.44 1.50 - 7.00 K/mcL LAB HEMETOLOGY METHOD 04/17/2025 11:28 AM EST [facility] Lymphocytes Absolute 1.38 1.00 - 5.00 K/mcL LAB HEMETOLOGY METHOD 04/17/2025 11:28 AM EST [facility] Monocytes Absolute 0.67 0.20 - 1.00 K/mcL LAB HEMETOLOGY METHOD 04/17/2025 11:28 AM EST [facility] Eosinophils Absolute 0.26 0.00 - 0.50 K/mcL LAB HEMETOLOGY METHOD 04/17/2025 11:28 AM EST [facility] Basophils Absolute 0.03 0.00 - 0.20 K/mcL LAB HEMETOLOGY METHOD 04/17/2025 11:28 AM EST [facility] Immature Granulocytes Absolute 0.04(H) 0.00 - 0.03 K/mcL LAB HEMETOLOGY METHOD 04/17/2025 11:28 AM EST [facility] Blood Venous blood specimen / Unknown Venipuncture / Unknown 04/17/2025 8:20 AM EST 04/17/2025 10:54 AM EST us Josefa Monroe MD LAB BLOOD ORDERABLES Final Resu lt [facility] [address] [place] [address], * (ABNORMAL) Basic metabolic panel (04/17/2025 8:20 AM EST) Sodium 136 133 - 145 mmol/L LAB CHEMISTRY METHOD 04/17/2025 12:10 PM EST [facility] Potassium 3.6 3.5 - 5.5 mmol/L LAB CHEMISTRY METHOD 04/17/2025 12:10 PM [facility] Chloride 96 96 - 110 mmol/L LAB CHEMISTRY METHOD 04/17/2025 12:10 PM [facility] CO2 33(H) 21 - 32 mmol/L LAB CHEMISTRY METHOD 04/17/2025 12:10 PM [facility] Anion Gap 7 3 - 11 LAB CHEMISTRY METHOD 04/17/2025 12:10 PM [facility] Glucose 91 70 - 100 mg/dL LAB CHEMISTRY METHOD 04/17/2025 12:10 PM [facility] BUN 23 5 - 25 mg/dL LAB CHEMISTRY METHOD 04/17/2025 12:10 PM [facility] Creatinine 1.04 0.50 - 1.10 mg/dL LAB CHEMISTRY METHOD 04/17/2025 12:10 PM [facility] eGFR 58(L) >=60 mL/min/1. 73m2 LAB CHEMISTRY METHOD 04/17/2025 12:10 PM [facility] Comment:Calculation based on the Chronic Kidney Disease Epidemiology Collaboration (CKD-EPI) equation refit without adjustment for race. BUN/Creatinine Ratio 22.1 LAB CHEMISTRY METHOD 04/17/2025 12:10 PM [facility] Calcium 8.8 8.5 - 10.5 mg/dL LAB CHEMISTRY METHOD 04/17/2025 12:10 PM [facility] Blood Venous blood specimen / Unknown Venipuncture / Unknown 04/17/2025 8:20 AM EST 04/17/2025 10:54 AM EST us Josefa Monroe MD LAB BLOOD ORDERABLES Final Resu lt [facility] [address] [place] [address], [place] [phone] * Debridement Dehiscence of Surgical Wound (Cluster ) Right;Lower;Other (Comment) (BKA) Leg (BKA amputation site ) (04/07/2025 1:15 PM EST) Emma Tobin MD - 04/07/2025 1:15 PM EST Emma Karimi MD 04/07/2025 3:17 PM Debridement Dehiscence of Surgical Wound (Cluster ) Right;Lower;Other (Comment) (BKA) Leg (BKA amputation site ) Performed by: Emma Karmii MD Authorized by: Emma Karimi MD Associated wounds: Wound Dehiscence of Surgical Wound 09/27/19 Leg Right;Lower;Other (Comment) Consent: Consent obtained: Verbal Consent given by: Patient Risks discussed: Yes Time out: Immediately prior to the procedure a time out was called Time out performed at: 04/07/2025 2:02 PM Debridement Details: Performed by: Physician Type: selective Pain control: Lidocaine 5% Pain control administration: topical anesthesia Severity of Tissue Pre Debridement: Fat layer exposed Severity of Tissue Post Debridement: Fat layer exposed Time taken: 04/07/2025 1:45 PM Length (cm): 1.4 Width (cm): 4.5 Depth (cm): 0.2 Area (cm^2): 6.3 Time taken: 04/07/2025 1:46 PM Length (cm): 1.4 Width (cm): 4.5 Depth (cm): 0.2 Percent Debrided (%): 100 Surface Area (cm^2): 6.3 Area Debrided (cm^2): 6.3 Volume (cm^3): 1.26 Devitalized tissue debrided: exudate, fibrin and slough Instrument: Blade and forceps Amount of bleeding: small Hemostasis obtained with: Pressure Procedural pain: 0 Post-procedural pain: 0 Response to treatment: Procedure was tolerated well us Emma Karimi MD IN CLINIC/BEDSIDE ORDERAB LES Final Result * (ABNORMAL) Urinalysis with reflex microscopic (04/01/2025 8:00 PM EDT) Only the most recent of2 resultswithin the time period is included. [facility] Specific [place] Urine 1.016 1.003 - 1.030 LAB URINALYSIS - AUTOMATED METHOD 04/02/2025 10:49 AM [facility] pH, Urine 5.5 5.0 - 8.0 pH LAB URINALYSIS - AUTOMATED METHOD 04/02/2025 10:49 AM [facility] Leukocytes, Urine Trace(A) Negative LAB URINALYSIS - AUTOMATED METHOD 04/02/2025 10:49 AM [facility] Nitrite, Urine Negative Negative LAB URINALYSIS - AUTOMATED METHOD 04/02/2025 10:49 AM [facility] Protein, Urine Negative <=Trace mg/dL LAB URINALYSIS - AUTOMATED METHOD 04/02/2025 10:49 AM [facility] Glucose, Urine Negative Negative mg/dL LAB URINALYSIS - AUTOMATED METHOD 04/02/2025 10:49 AM [facility] Ketones, Urine Negative Negative mg/dL LAB URINALYSIS - AUTOMATED METHOD 04/02/2025 10:49 AM [facility] Urobilinogen , Urine 0.2 0.2 - 1.0 mg/dL LAB URINALYSIS - AUTOMATED METHOD 04/02/2025 10:49 AM [facility] Bilirubin, Urine Negative Negative LAB URINALYSIS - AUTOMATED METHOD 04/02/2025 10:49 AM [facility] Blood, Urine Negative Negative LAB URINALYSIS - AUTOMATED METHOD 04/02/2025 10:49 AM [facility] RBC, Urine 2.3 0 - 4 /HPF LAB URINALYSIS - AUTOMATED METHOD 04/02/2025 10:49 AM [facility] WBC, Urine 0.2 0 - 4 /HPF LAB URINALYSIS - AUTOMATED METHOD 04/02/2025 10:49 AM [facility] Squamous Epithelial, Urine 54 0 - 60 /LPF LAB URINALYSIS - AUTOMATED METHOD 04/02/2025 10:49 AM [facility] Crystals, Urine Moderate Calcium Oxalate crystals. /LPF 04/02/2025 10:49 AM EDT [facility] Bacteria, Urine Negative Negative /HPF LAB URINALYSIS - AUTOMATED METHOD 04/02/2025 10:49 AM EDT [facility] Hyaline Casts, Urine 4.4(H) 0 - 3 /LPF LAB URINALYSIS - AUTOMATED METHOD 04/02/2025 10:49 AM EDT [facility] Urine Urine specimen obtained by clean catch procedure / Unknown Non-blood Collection / Unknown 04/01/2025 8:00 PM EDT 04/02/2025 10:03 AM EDT us Kaitlin BARBOZA LAB URINE ORDERABLES Final Resul t [facility] [address] [place] [address], * Debridement Dehiscence of Surgical Wound (Cluster ) Right;Lower;Other (Comment) (BKA) Leg (BKA amputation site ) (03/10/2025 11:00 AM EDT) Narrative Nazario Kim MD - 03/10/2025 11:00 AM EDT Nazario Kim MD 03/13/2025 3:20 PM Debridement Dehiscence of Surgical Wound (Cluster ) Right;Lower;Other (Comment) (BKA) Leg (BKA amputation site ) Performed by: TAMRA Gottlieb Authorized by: TAMRA Gottlieb Associated wounds: Wound Dehiscence of Surgical Wound 09/27/19 Leg Right;Lower;Other (Comment) Consent: Consent obtained: Verbal Consent given by: Patient Risks discussed: Yes Time out: Immediately prior to the procedure a time out was called Debridement Details: Performed by: TAMRA Type: surgical Level: subcutaneous tissue Pain control: Lidocaine 4% Severity of Tissue Pre Debridement: Fat layer exposed Severity of Tissue Post Debridement: Fat layer exposed Time taken: 03/10/2025 11:05 AM Length (cm): 0.6 Width (cm): 3 Depth (cm): 0.1 Area (cm^2): 1.41 Time taken: 03/10/2025 11:06 AM Length (cm): 0.6 Width (cm): 3 Depth (cm): 0.1 Percent Debrided (%): 75 Surface Area (cm^2): 1.8 Area Debrided (cm^2): 1.35 Volume (cm^3): 0.18 Tissue and other material debrided: dermis, epidermis and subcutaneous tissue Devitalized tissue debrided: biofilm Instrument: Curette Amount of bleeding: none Hemostasis obtained with: Not applicable Procedural pain: 0 Post-procedural pain: 0 Response to treatment: Procedure was tolerated well Jesus BARBOZA IN CLINIC/BEDSIDE ORDERABLE S Final Result * (ABNORMAL) Lipid panel with reflex to direct LDL (01/27/2025 10:40 AM EDT) Cholesterol 211(H) 0 - 200 mg/dL LAB CHEMISTRY METHOD 01/27/2025 1:22 PM [facility] Triglycerides 126 0 - 150 mg/dL LAB CHEMISTRY METHOD 01/27/2025 1:22 PM [facility] HDL 52 >=40 mg/dL LAB CHEMISTRY METHOD 01/27/2025 1:22 PM [facility] LDL Calculated 134(H) 0 - 100 mg/dL LAB CHEMISTRY METHOD 01/27/2025 1:22 PM [facility] Comment:Estimated LDL Calcul ated using equation: Total cholesterol - HDL cholesterol - (Triglycerides/5) VLDL Cholesterol Heladio 25.2 mg/dL LAB CHEMISTRY METHOD 01/27/2025 1:22 PM [facility] Non HDL Chol. (LDL+VLDL) 159(H) <145 mg/dL LAB CHEMISTRY METHOD 01/27/2025 1:22 PM [facility] Chol/HDL Ratio 4.1 0.0 - 4.4 LAB CHEMISTRY METHOD 01/27/2025 1:22 PM [facility] Blood Venous blood specimen / Unknown Venipuncture / Unknown 01/27/2025 10:40 AM EDT 01/27/2025 10:40 AM EDT us C Nash Logan MD LAB BLOOD ORDERABLES Final Res ult [facility]) [facility] [address] [place] [address], [place] [phone] from Last 3 Months or Most Recently Relevant to Health Maintenance Additional Health Concerns Active Problems Noted Date Diagnosed Date Impaired Tissue 04/22/2024 Education needed on impact of smoking on wound 1 06/22/2023 Education needed related to ulceration/compromised skin integrity. 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 Health Care Decision (hx) 03/29/2020 AD MULLINS DIRECTIVE Health Care Decision (hx) 03/29/2020 AD MULLINS DIRECTIVE Health Care Decision (hx) 03/29/2020 AD MULLINS DIRECTIVE Health Care Decision (hx) 03/29/2020 AD MULLINS DIRECTIVE Health Care Decision (hx) 03/29/2020 AD MULLINS DIRECTIVE Health Care Decision (hx) 03/29/2020 AD MULLINS DIRECTIVE Health Care Decision (hx) 03/29/2020 AD MULLINS DIRECTIVE Health Care Decision (hx) 03/29/2020 AD MULLINS DIRECTIVE Health Care Decision (hx) 03/29/2020 AD MULLINS DIRECTIVE Health Care Decision (hx) 03/29/2020 AD MULLINS DIRECTIVE Health Care Decision (hx) 03/29/2020 AD MULLINS DIRECTIVE Health Care Decision (hx) 03/29/2020 AD MULLINS DIRECTIVE Health Care Decision (hx) 03/29/2020 AD MULLINS DIRECTIVE Health Care Decision (hx) 03/29/2020 AD MULLINS DIRECTIVE Health Care Decision (hx) 03/29/2020 AD MULLINS DIRECTIVE Health Care Decision (hx) 03/29/2020 AD MULLINS DIRECTIVE Health Care Decision (hx) 03/29/2020 AD MULLINS DIRECTIVE Health Care Decision (hx) 03/29/2020 AD MULLINS DIRECTIVE Health Care Decision (hx) 03/29/2020 AD MULLINS DIRECTIVE Health Care Decision (hx) 03/29/2020 AD MULLINS DIRECTIVE Health Care Decision (hx) 03/29/2020 AD MULLINS DIRECTIVE Health Care Decision (hx) 03/29/2020 AD MULLINS DIRECTIVE Health Care Decision (hx) 03/29/2020 AD MULLINS DIRECTIVE Health Care Decision (hx) 03/29/2020 AD MULLINS DIRECTIVE Health Care Decision (hx) 03/29/2020 AD MULLINS DIRECTIVE Health Care Decision (hx) 03/29/2020 AD MULLINS DIRECTIVE Health Care Decision (hx) 03/29/2020 AD MULLINS DIRECTIVE Health Care Decision (hx) 03/29/2020 AD MULLINS DIRECTIVE Health Care Decision (hx) 03/29/2020 AD MULLINS DIRECTIVE Health Care Decision (hx) 03/29/2020 AD MULLINS DIRECTIVE Health Care Decision (hx) 03/29/2020 AD MULLINS DIRECTIVE Health Care Decision (hx) 03/29/2020 AD MULLINS DIRECTIVE Health Care Decision (hx) 03/29/2020 AD MULLINS DIRECTIVE Health Care Decision (hx) 03/29/2020 AD MULLINS DIRECTIVE Health Care Decision (hx) 03/29/2020 AD MULLINS DIRECTIVE Health Care Decision (hx) 03/29/2020 AD MULLINS DIRECTIVE Health Care Decision (hx) 03/29/2020 AD MULLINS DIRECTIVE Health Care Decision (hx) 03/29/2020 AD MULLINS DIRECTIVE Health Care Decision (hx) 03/29/2020 AD MULLINS DIRECTIVE Health Care Decision (hx) 03/29/2020 AD MULLINS DIRECTIVE Health Care Decision (hx) 03/29/2020 AD MULLINS DIRECTIVE Health Care Decision (hx) 03/29/2020 AD MULLINS DIRECTIVE Health Care Decision (hx) 03/29/2020 AD MULLINS DIRECTIVE Health Care Decision (hx) 03/29/2020 AD MULLINS DIRECTIVE Health Care Decision (hx) 03/29/2020 AD MULLINS DIRECTIVE Health Care Decision (hx) 03/29/2020 AD MULLINS DIRECTIVE Health Care Decision (hx) 03/29/2020 AD MULLINS DIRECTIVE Health Care Decision (hx) 03/29/2020 AD MULLINS DIRECTIVE Health Care Decision (hx) 03/29/2020 AD MULLINS DIRECTIVE Health Care Decision (hx) 03/29/2020 AD MULLINS DIRECTIVE Health Care Decision (hx) 03/29/2020 AD MULLINS DIRECTIVE Health Care Decision (hx) 03/29/2020 AD MULLINS DIRECTIVE Health Care Decision (hx) 03/29/2020 AD MULLINS DIRECTIVE Health Care Decision (hx) 03/29/2020 AD MULLINS DIRECTIVE Health Care Decision (hx) 03/29/2020 AD MULLINS DIRECTIVE Health Care Decision (hx) 03/29/2020 AD MULLINS DIRECTIVE Health Care Decision (hx) 03/29/2020 AD MULLINS DIRECTIVE Health Care Decision (hx) 03/29/2020 AD MULLINS DIRECTIVE Health Care Decision (hx) 03/29/2020 AD MULLINS DIRECTIVE Health Care Decision (hx) 03/29/2020 AD MULLINS DIRECTIVE Health Care Decision (hx) 03/29/2020 AD MULLINS DIRECTIVE Health Care Decision (hx) 03/29/2020 AD MULLINS DIRECTIVE Health Care Decision (hx) 03/29/2020 AD MULLINS DIRECTIVE Health Care Decision (hx) 03/29/2020 AD MULLINS DIRECTIVE Health Care Decision (hx) 03/29/2020 AD MULLINS DIRECTIVE Health Care Decision (hx) 03/29/2020 AD MULLINS DIRECTIVE Health Care Decision (hx) 03/29/2020 AD MULLINS DIRECTIVE Health Care Decision (hx) 03/29/2020 AD MULLINS DIRECTIVE Health Care Decision (hx) 03/29/2020 AD MULLINS DIRECTIVE Health Care Decision (hx) 03/29/2020 AD MULLINS DIRECTIVE Health Care Decision (hx) 03/29/2020 AD MULLINS DIRECTIVE Health Care Decision (hx) 03/29/2020 AD MULLINS DIRECTIVE Health Care Decision (hx) 03/29/2020 AD MULLINS DIRECTIVE Health Care Decision (hx) 03/29/2020 AD MULLINS DIRECTIVE Health Care Decision (hx) 03/29/2020 AD MULLINS DIRECTIVE Health Care Decision (hx) 03/29/2020 AD MULLINS DIRECTIVE Health Care Decision (hx) 03/29/2020 AD MULLINS DIRECTIVE Health Care Decision (hx) 03/29/2020 AD MULLINS DIRECTIVE Health Care Decision (hx) 03/29/2020 AD MULLINS DIRECTIVE Health Care Decision (hx) 03/29/2020 AD MULLINS DIRECTIVE Health Care Decision (hx) 03/29/2020 AD MULLINS DIRECTIVE Health Care Decision (hx) 03/29/2020 AD MULLINS DIRECTIVE Health Care Decision (hx) 03/29/2020 AD MULLINS DIRECTIVE Health Care Decision (hx) 03/29/2020 AD MULLINS DIRECTIVE Health Care Decision (hx) 03/29/2020 AD MULLINS DIRECTIVE Health Care Decision (hx) 03/29/2020 AD MULLINS DIRECTIVE Health Care Decision (hx) 03/29/2020 AD MULLINS DIRECTIVE Health Care Decision (hx) 03/29/2020 AD MULLINS DIRECTIVE Health Care Decision (hx) 03/29/2020 AD MULLINS DIRECTIVE Health Care Decision (hx) 03/29/2020 AD MULLINS DIRECTIVE Health Care Decision (hx) 03/29/2020 AD MULLINS DIRECTIVE Health Care Decision (hx) 03/29/2020 AD MULLINS DIRECTIVE Health Care Decision (hx) 03/29/2020 AD MULLINS DIRECTIVE Health Care Decision (hx) 03/29/2020 AD MULLINS DIRECTIVE Health Care Decision (hx) 03/29/2020 AD MULLINS DIRECTIVE Health Care Decision (hx) 03/29/2020 AD MULLINS DIRECTIVE Health Care Decision (hx) 03/29/2020 AD MULLINS DIRECTIVE Health Care Decision (hx) 03/29/2020 AD MULLINS DIRECTIVE Health Care Decision (hx) 03/29/2020 AD MULLINS DIRECTIVE Health Care Decision (hx) 03/29/2020 AD MULLINS DIRECTIVE Health Care Decision (hx) 03/29/2020 AD MULLINS DIRECTIVE Health Care Decision (hx) 03/29/2020 AD MULLINS DIRECTIVE Health Care Decision (hx) 03/29/2020 AD MULLINS DIRECTIVE Health Care Decision (hx) 03/29/2020 AD MULLINS DIRECTIVE Health Care Decision (hx) 03/29/2020 AD MULLINS DIRECTIVE Health Care Decision (hx) 03/29/2020 AD MULLINS DIRECTIVE Health Care Decision (hx) 03/29/2020 AD MULLINS DIRECTIVE Health Care Decision (hx) 03/29/2020 AD MULLINS DIRECTIVE Health Care Decision (hx) 03/29/2020 AD MULLINS DIRECTIVE Health Care Decision (hx) 03/29/2020 AD MULLINS DIRECTIVE Health Care Decision (hx) 03/29/2020 AD MULLINS DIRECTIVE Health Care Decision (hx) 03/29/2020 AD MULLINS DIRECTIVE Health Care Decision (hx) 03/29/2020 AD MULLINS DIRECTIVE Health Care Decision (hx) 03/29/2020 AD MULLINS DIRECTIVE Health Care Decision (hx) 03/29/2020 AD MULLINS DIRECTIVE Health Care Decision (hx) 03/29/2020 AD MULLINS DIRECTIVE Health Care Decision (hx) 03/29/2020 AD MULLINS DIRECTIVE Health Care Decision (hx) 03/29/2020 AD MULLINS DIRECTIVE Health Care Decision (hx) 03/29/2020 AD MULLINS DIRECTIVE Health Care Decision (hx) 03/29/2020 AD MULLINS DIRECTIVE Health Care Decision (hx) 03/29/2020 AD MULLINS DIRECTIVE Health Care Decision (hx) 03/29/2020 AD MULLINS DIRECTIVE Health Care Decision (hx) 03/29/2020 AD MULLINS DIRECTIVE Health Care Decision (hx) 03/29/2020 AD MULLINS DIRECTIVE Care Teams Helpdesk Manager Relationship Specialty Start Date End Date Sheridan Logan MD [address] [place] [id number] PCP - General Internal Medicine 04/30/12
--- OUTSIDE RECORDS SUMMARY | 2025-05-30 11:28 | XMS_ITS ---
Care Plan Created on: May 30, 2025 Elda Skinner : 1955 Sex: Female Author Organization [facility] Address [address] [place] [address] Phone Care Team Providers Care [employer] Instructor Name Role Phone Sheridan Logan MD Primary Care Provider [phone] Active Problems Problem Noted Date Diagnosed Date [...] fractu re 2021 Overview (03/06/2024): Referred by [employer] to endo Dr. Garay 03/25 osteopenia back. Osteoporosis Femoral neck Urinary incontinence 12/16/2020 Impaired glucose tolerance 09/03/2020 Edema 07/30/2018 Obstructive sleep apnea 10/18/2016 [place] (03/06/2024): [facility] [place]. Date 11/10/2016 . SE [...] apnea but did reveal sleep related hypoxemia. [facility] [place]: Date 02/08/2018; E 96%; SM 97%; [...] Also identified on abdominal CT scan 11/19/2004, [facility]. 09/15 colonoscopy neg. Depression 03/22/2005 Overview (03/06/2024): Dr Felder Hypercholesteremia 03/22/2005 Low back pain 03/22/2005 Overview (03/06/2024): Dr Manrique, Dr Dominguez. Qualified for SSI disability approx 1995. Permanent neurostimulator 09/26 Headache Overview (03/06/2024): Dr Damon Hypothyroidism B12 deficiency Additional Health Concerns Active Problems Noted Date Diagnosed Date Impaired Tissue 04/22/2024 Education needed on impact of smoking on wound 1 06/22/2023 Education needed related to ulceration/compromised skin integrity. 04/22/2024 Infection Onset Date Last Indicated ESBL 05/14/2025 05/14/2025 Goals Goal Patient Goal Type Associated Problems Recent Progress Patient-Stated? Author Decrease Wound Volume by X% by date (in notes) Care Plan Impaired Tissue On track( 025 4:25 PM EST) Ericka Anderson RN Patient and Caregiver Understand Wound Care Education Care Plan Impaired Tissue On track( 025 4:25 PM EST) Ericka Anderson RN Wound volume breakdown reduced by X% by week 4 Care Plan Impaired Tissue Ericka Anderson RN Wound volume breakdown reduced by X% by week 8 Care Plan Impaired Tissue Ericka Anderson RN Wound volume breakdown reduced by X% by week 12 Care Plan Impaired Tissue Ericka Anderson RN Quit using tobacco (cigarettes, smokeless, etc) Care Plan Education needed on impact of smoking on wound Ericka Anderson RN Reduce tobacco use (cigarettes, smokeless, etc) Care Plan Education needed on impact of smoking on wound Ericka Anderson RN Decrease Wound Volume by X% by date (in notes) Care Plan Education needed on impact of smoking on wound Ericka Anderson RN Patient and Caregiver Understand Wound Care Education Care Plan Education needed related to ulceration/compr omised skin integrity. Ericka Anderson RN Interventions Care Plan Interventions Intervention Entry Date Outcome Provide caregiver with wound care procedure information 04/22/2024 Educate caregiver on proper wound care procedures 04/22/2024 Give provider list of wound care supplies 04/22/2024 Refill wound care supplies 04/22/2024 Send Wound Care Supplies 04/22/2024 Give provider list of wound care supplies 04/22/2024 Refill wound care supplies 04/22/2024 Send Wound Care Supplies 04/22/2024 Provide caregiver with wound care procedure information 04/22/2024 Educate caregiver on proper wound care procedures 04/22/2024 Document patient eligibility for HBO 04/22/2024 Assess patient for HBO treatment 04/22/2024 Record wound depth 04/22/2024 Record total wound area 04/22/2024 Measure wound progress 04/22/2024 Create an action plan identifying patient strengths and supports 04/22/2024 Establish quit date with patient 04/22/2024 Discuss prior cessation attempts 04/22/2024 Discuss preferred method of cessation and plan 04/22/2024 Discuss barriers to smoking cessation 04/22/2024 Discuss smoking status with patient 04/22/2024 Create an action plan identifying patient strengths and supports 04/22/2024 Establish quit date with patient 04/22/2024 Discuss prior cessation attempts 04/22/2024 Discuss preferred method of cessation and plan 04/22/2024 Discuss barriers to smoking cessation 04/22/2024 Discuss smoking status with patient 04/22/2024 Provide caregiver with wound care procedure information 04/22/2024 Educate caregiver on proper wound care procedures 04/22/2024 Document patient eligibility for HBO 04/22/2024 Assess patient for HBO treatment 04/22/2024 Record wound depth 04/22/2024 Record total wound area 04/22/2024 Measure wound progress 04/22/2024 Provide caregiver with wound care procedure information 04/22/2024 Educate caregiver on proper wound care procedures 04/22/2024 Document patient eligibility for HBO 04/22/2024 Assess patient for HBO treatment 04/22/2024 Record wound depth 04/22/2024 Record total wound area 04/22/2024 Measure wound progress 04/22/2024 Provide caregiver with wound care procedure information 04/22/2024 Educate caregiver on proper wound care procedures 04/22/2024 Document patient eligibility for HBO 04/22/2024 Assess patient for HBO treatment 04/22/2024 Record wound depth 04/22/2024 Record total wound area 04/22/2024 Measure wound progress 04/22/2024 Provide caregiver with wound care procedure information 04/22/2024 Educate caregiver on proper wound care procedures 04/22/2024 Refill wound care supplies 04/22/2024 Give provider list of wound care supplies 04/22/2024 Refill wound care supplies 04/22/2024 Educate caregiver on proper wound care procedures 04/22/2024 Record wound depth 04/22/2024 Record total wound area 04/22/2024 Measure wound progress 04/22/2024 Related Goals and Interventions Goal Associated Intervent ions Decrease Wound Volume by X% by date (in notes) Give provider list of wound care supplie s; Refill wound care supplies; Educate caregiver on proper wound care procedures; Record wound depth; Record total wound area; Measure wound progress Patient and Caregiver Unders tand Wound Care Education Provide caregiver with wound care proced ure information; Educate caregiver on proper wound care procedures; Refill wound care supplies Wound volume breakdown reduc ed by X% by week 4 Provide caregiver with wound care proced ure information; Educate caregiver on proper wound care procedures; Document patient eligibility for HBO; Assess patient for HBO treatment; Record wound depth; Record total wound area; Measure wound progress Wound volume breakdown reduc ed by X% by week 8 Provide caregiver with wound care proced ure information; Educate caregiver on proper wound care procedures; Document patient eligibility for HBO; Assess patient for HBO treatment; Record wound depth; Record total wound area; Measure wound progress Wound volume breakdown reduc ed by X% by week 12 Provide caregiver with wound care proced ure information; Educate caregiver on proper wound care procedures; Document patient eligibility for HBO; Assess patient for HBO treatment; Record wound depth; Record total wound area; Measure wound progress Quit using tobacco (cigarett es, smokeless, etc) Create an action plan identifying patien t strengths and supports; Establish quit date with patient; Discuss prior cessation attempts; Discuss preferred method of cessation and plan; Discuss barriers to smoking cessation; Discuss smoking status with patient Reduce tobacco use (cigarett es, smokeless, etc) Create an action plan identifying patien t strengths and supports; Establish quit date with patient; Discuss prior cessation attempts; Discuss preferred method of cessation and plan; Discuss barriers to smoking cessation; Discuss smoking status with patient Decrease Wound Volume by X% by date (in notes) Give provider list of wound care supplie s; Refill wound care supplies; Send Wound Care Supplies; Provide caregiver with wound care procedure information; Educate caregiver on proper wound care procedures; Document patient eligibility for HBO; Assess patient for HBO treatment; Record wound depth; Record total wound area; Measure wound progress Patient and Caregiver Unders tand Wound Care Education Provide caregiver with wound care proced ure information; Educate caregiver on proper wound care procedures; Give provider list of wound care supplies; Refill wound care supplies; Send Wound Care Supplies
--- OUTSIDE RECORDS SUMMARY | 2025-05-30 11:28 | XMS_ITS | Encounter Summary ---
Author Organization [facility] Address [address] [place] [address] Care Team Providers Care Inspector Poising Name Role Phone Sheridan Logan MD Primary Care Provider [phone] Encounter Details Date Type Department Care Team (Late Contact Info) Description 11/29/2024 Lab Requisition [facility] - Main Lab [address] [facility] [place] [phone] Josefa Monroe MD [address] [place] [id number] Hypothyroidism, unspecified Social History Tobacco Use Types Packs/Day Years [...] on file documented as of this encounter Plan of Treatment Upcoming Encounters Date Type Department Care Team (Late Contact Info) Description 06/09/2025 11:00 AM EST Clinical Support [facility] [address] [place] [phone] 11/17/2025 2:00 PM EDT Office Visit Gastroenterology - 299 [facility] [address] [phone] Grisel Ford [place] 299 [facility] [address] [place] [phone] documented as of this encounter Goals Goal [...] omised skin integrity. No Ericka Chavarria RN documented as of this encounter Procedures Procedure Name Priority Date/Time Associated Diagnosis Comments PRIMIDONE LEVEL Routine 11/29/2024 6:04 AM EDT Hypothyroidism, unspecified THYROID STIMULATING HORMONE Routine 11/29/2024 6:04 AM EDT Hypothyroidism, unspecified THYROXINE TOTAL Routine 11/29/2024 6:04 AM EDT Hypothyroidism, unspecified VALPROIC ACID LEVEL, TOTAL Routine 11/29/2024 6:04 AM EDT Hypothyroidism, unspecified documented in this encounter Results * Primidone level (11/29/2024 6:04 AM EDT) [facility] Primidone (Mysoline) 7.3 4 - 12 ug/mL 12/02/2024 1:45 PM EDT [facility] Comment: Primidone toxic level: >20 ug/mL If applicable, any drug confirmation testing reported here was developed and the performance characteristics determined by [facility]. This confirmation testing has not been cleared or approved by the FDA. The laboratory is regulated under CLIA as qualified to perform high-complexity testing. This test is used for patient testing purposes. It should not be regarded as investigational or for research. Test performed at [facility], [address] , [place] [address] Adrienne Mart MD, PhD - Manager Asset Blood Venous blood specimen / Unknown Venipuncture / Unknown 11/29/2024 6:04 AM EDT 11/29/2024 7:16 AM EDT Josefa Monroe MD LAB BLOOD ORDERABLES Final Resu lt Performing Organization Address City/[facility]/ZIP Co de Phone Number [facility] [address] [place] [address] * (ABNORMAL) Valproic acid level, total (11/29/2024 6:04 AM EDT) [facility] Valproic Acid, Total 16(L) 50 - 100 mcg/mL LAB CHEMISTRY METHOD 11/29/2024 8:01 AM EDT [facility] Blood Venous blood specimen / Unknown Venipuncture / Unknown 11/29/2024 6:04 AM EDT 11/29/2024 7:16 AM EDT Josefa Monroe MD LAB BLOOD ORDERABLES Final Resu lt [facility] [address] [place] [address], [place] [phone] * Thyroxine total (11/29/2024 6:04 AM EDT) [facility] T4, Total 9.0 4.5 - 10.9 mcg/dL LAB CHEMISTRY METHOD 11/29/2024 8:46 AM EDT [facility] Blood Venous blood specimen / Unknown Venipuncture / Unknown 11/29/2024 6:04 AM EDT 11/29/2024 7:16 AM EDT us Josefa Monroe MD LAB BLOOD ORDERABLES Final Resu lt Performing Organization Address [facility] Co de Phone Number [facility] [address] [place] [address], [place] [phone] * Thyroid stimulating hormone (11/29/2024 6:04 AM EDT) [facility] TSH 0.97 0.40 - 4.00 mcIU/mL LAB CHEMISTRY METHOD 11/29/2024 8:43 AM EDT [facility] Blood Venous blood specimen / Unknown Venipuncture / Unknown 11/29/2024 6:04 AM EDT 11/29/2024 7:16 AM EDT us Josefa Monroe MD LAB BLOOD ORDERABLES Final Resu lt Performing Organization Address [facility] de Phone Number [facility] [address] [place] [address], [place] [phone] documented in this encounter Visit Diagnoses Diagnosis Hypothyroidism, unspecified documented in this encounter Additional Health Concerns [...] documented as of this encounter Care Teams Inspector Poising Relationship Specialty Start Date End Date Sheridan Logan MD [address] [place] [phone] PCP - General Internal Medicine 04/30/12 documented as of this encounter
--- OUTSIDE RECORDS SUMMARY | 2025-05-30 11:28 | XMS_ITS | Encounter Summary ---
Author Organization [facility] Address [address] [place] [address] Care Team Providers Care Manager System Name Role Phone Sheridan Logan MD Primary Care Provider [phone] Encounter Details Date Type Department Care Team (Late Contact Info) Description 12/17/2024 Lab Requisition [facility] - Main Lab 299 [facility] [place] [phone] Jannie Vera MD [address] [facility] 1 [place] [address] Urinary tract infection, site not specified Social History Tobacco Use Types Packs/Day Years [...] Description 06/09/2025 11:00 AM EST Clinical Support [facility] [address] [place] [phone] 11/17/2025 2:00 PM EDT Office Visit Gastroenterology - [address] [place] [phone] Grisel Ford [place] 299 [facility] [address] [place] [address] documented as of this encounter Goals Goal [...] Procedure Name Priority Date/Time Associated Diagnosis Comments URINALYSIS WITH REFLEX MICROSCOPIC Routine 12/17/2024 8:17 AM EDT Urinary tract infection, site not specified URINALYSIS WITH REFLEX MICROSCOPIC Routine 12/17/2024 8:17 AM EDT Urinary tract infection, site not specified CULTURE URINE Routine 12/17/2024 8:17 AM EDT Urinary tract infection, site not specified documented in this encounter Results * Urinalysis with reflex microscopic (12/17/2024 8:17 AM EDT) Specific [place] Urine 1.013 1.003 - 1.030 LAB URINALYSIS - AUTOMATED METHOD 12/17/2024 9:33 AM [facility] pH, Urine 6.0 5.0 - 8.0 pH LAB URINALYSIS - AUTOMATED METHOD 12/17/2024 9:33 AM [facility] Leukocytes, Urine Negative Negative LAB URINALYSIS - AUTOMATED METHOD 12/17/2024 9:33 AM [facility] Nitrite, Urine Negative Negative LAB URINALYSIS - AUTOMATED METHOD 12/17/2024 9:33 AM [facility] Protein, Urine Negative <=Trace mg/dL LAB URINALYSIS - AUTOMATED METHOD 12/17/2024 9:33 AM [facility] Glucose, Urine Negative Negative mg/dL LAB URINALYSIS - AUTOMATED METHOD 12/17/2024 9:33 AM [facility] Ketones, Urine Negative Negative mg/dL LAB URINALYSIS - AUTOMATED METHOD 12/17/2024 9:33 AM [facility] Urobilinogen, Urine 0.2 0.2 - 1.0 mg/dL LAB URINALYSIS - AUTOMATED METHOD 12/17/2024 9:33 AM [facility] Bilirubin, Urine Negative Negative LAB URINALYSIS - AUTOMATED METHOD 12/17/2024 9:33 AM [facility] Blood, Urine Negative Negative LAB URINALYSIS - AUTOMATED METHOD 12/17/2024 9:33 AM [facility] Urine Urine specimen obtained by clean catch procedure / Unknown Non-blood Collection / Unknown 12/17/2024 8:17 AM EDT 12/17/2024 8:19 AM EDT us Jannie Vera MD LAB URINE ORDERABLES Fin al Result [facility] [address] [place] [address], [place] [phone] * Culture urine (12/17/2024 8:17 AM EDT) Culture, Urine <1,000 cfu/ml mixed bacterial carlos 12/19/2024 8:43 AM EDT [facility] Urine Urinary bladder structure / Unknown Non-blood Collection / Unknown 12/17/2024 8:17 AM EDT 12/17/2024 8:19 AM EDT us Jannie Vera MD LAB MICROBIOLOGY - GENER AL ORDERABLES Final Result [facility] [address] [place] [address], [place] [phone] documented in this encounter Visit Diagnoses Diagnosis Urinary tract infection, site not specified documented in this encounter Additional Health Concerns [...] documented as of this encounter Care Teams Manager System Relationship Specialty Start Date End Date Sheridan Logan MD [address] [place] [id number] PCP - General Internal Medicine 04/30/12 documented as of this encounter
--- OUTSIDE RECORDS SUMMARY | 2025-05-30 11:28 | XMS_ITS | Encounter Summary ---
Author Organization [facility] Address [address] [place] [address] Care Team Providers Care Director Of Search Engine Optimization Name Role Phone Sheridan Logan MD Primary Care Provider [phone] Encounter Details Date Type Department Care Team (Late st Contact Info) Description 05/15/[address] [facility] - Main Lab 299 [facility] [phone] Josefa Monroe MD [address] [place] [address] Urinary tract infection, site not specified Social [...] Description 06/09/2025 11:00 AM EST Clinical Support [facility] [address] [place] [phone] 11/17/2025 2:00 PM EDT Office Visit Gastroenterology - 299 [facility] 299 [facility] [address] [place] [phone] Grisel Ford PA 299 [facility] [address] [place] [address] documented as of this encounter Goals Goal [...] Associated Diagnosis Comments URINALYSIS WITH REFLEX MICROSCOPIC AND CULTURE Routine 05/14/2025 12:00 AM EST Urinary tract infection, site not specified URINALYSIS WITH REFLEX MICROSCOPIC AND CULTURE Routine 05/14/2025 12:00 AM EST Urinary tract infection, site not specified CULTURE URINE Routine 05/14/2025 12:00 AM EST Urinary tract infection, site not specified documented in this encounter Results * Urinalysis with reflex microscopic and culture (05/14/2025 12:00 AM EST) Specific [place] Urine 1.015 1.003 - 1.030 LAB URINALYSIS - AUTOMATED METHOD 05/15/2025 10:[address] [facility] pH, Urine 6.0 5.0 - 8.0 pH LAB URINALYSIS - AUTOMATED METHOD 05/15/2025 10:[address] [facility] Leukocytes, Urine Negative Negative LAB URINALYSIS - AUTOMATED METHOD 05/15/2025 10:[address] [facility] Nitrite, Urine Negative Negative LAB URINALYSIS - AUTOMATED METHOD 05/15/2025 10:[address] [facility] Protein, Urine Negative <=Trace mg/dL LAB URINALYSIS - AUTOMATED METHOD 05/15/2025 10:[address] [facility] Glucose, Urine Negative Negative mg/dL LAB URINALYSIS - AUTOMATED METHOD 05/15/2025 10:[address] [facility] Ketones, Urine Negative Negative mg/dL LAB URINALYSIS - AUTOMATED METHOD 05/15/2025 10:[address] [facility] Urobilinogen, Urine 0.2 0.2 - 1.0 mg/dL LAB URINALYSIS - AUTOMATED METHOD 05/15/2025 10:[address] [facility] Bilirubin, Urine Negative Negative LAB URINALYSIS - AUTOMATED METHOD 05/15/2025 10:[address] [facility] Blood, Urine Negative Negative LAB URINALYSIS - AUTOMATED METHOD 05/15/2025 10:[address] [facility] Urine Urine specimen obtained by clean catch procedure / Unknown Non-blood Collection / Unknown 05/14/2025 05/15/2025 9:34 AM EST us Josefa Monroe MD LAB URINE ORDERABLES Final Resu lt [facility] 299 [place] [address], * (ABNORMAL) Culture urine (05/14/2025 12:00 AM EST) Culture, Urine >=100,000 CFU/mL Proteus mirabilis ESBL(A) AARON 05/19/2025 8:00 AM EST [facility] Comment: THIS ORGANISM IS POSITIVE FOR EXTENDED SPECTRUM BETA-LACTAMASE (ESBL). EXTENDED SPECTRUM BETA-LACTAMASE PRODUCING ORGANISMS DEMONSTRATE DECREASED ACTIVITY WITH PENICILLINS, CEPHALOSPORINS AND AZTREONAM. Edited result: Previously reported as Proteus species on 05/17/2025 at 1040 EST. Culture, Urine 50,000-100,000 CFU/mL Escherichia coli ESBL(A) AARON 05/19/2025 8:00 AM EST [facility] Comment: THIS ORGANISM IS POSITIVE [...] Josefa Monroe MD LAB MICROBIOLOGY - GENERAL KASSY REEVES Final Result Performing Organization Address [facility]/State/ZIP Co de Phone Number [facility] [address] [place] [address], documented in this encounter Visit Diagnoses Diagnosis [...] documented as of this encounter Care Teams Director Of Search Engine Optimization Relationship Specialty Start Date End Date Sheridan Logan MD [address] [place] [address] PCP - General Internal Medicine 04/30/12 documented as of this encounter
--- OUTSIDE RECORDS SUMMARY | 2025-05-30 11:28 | XMS_ITS | Encounter Summary ---
Author Organization [facility] Address [address] [place] [address] Care Team Providers Care Manager News Name Role Phone Sheridan Logan MD Primary Care Provider [phone] Encounter Details Date Type Department Care Team (Late Contact Info) Description 12/03/2024 Lab Requisition [facility] - Main Lab 299 [facility] [place] [phone] Josefa Monroe MD [address] [place] [address] Unspecified atrial fibrillation (CMS/HCC V24, CMS/HCC V28) Social History Tobacco [...] Description 06/09/2025 11:00 AM EST Clinical Support [facility] [address] [place] [phone] 11/17/2025 2:00 PM EDT Office Visit Gastroenterology - 299 [facility] 299 [facility] [address] [place] [phone] Grisel Ford PA [address] [facility] [address] [place] [address] documented as of this encounter Goals Goal [...] URINALYSIS WITH REFLEX MICROSCOPIC AND CULTURE Routine 12/01/2024 4:53 PM EDT Unspecified atrial fibrillation (CMS/HCC V24, CMS/HCC V28) [place] URINE CULTURE TUBE Routine 12/01/2024 4:53 PM EDT Unspecified atrial fibrillation (CMS/HCC V24, CMS/HCC V28) URINALYSIS WITH REFLEX MICROSCOPIC AND CULTURE Routine 12/01/2024 4:53 PM EDT Unspecified atrial fibrillation (CMS/HCC V24, CMS/HCC V28) documented in this encounter Results * [place] urine culture tube (12/01/2024 4:53 PM EDT) Pathologist [facility] Extra Tube Hold for add-ons. 12/03/2024 11:[address] [facility] Comment:Auto resulted. Urine Urine specimen obtained by clean catch procedure / Unknown 12/01/2024 4:53 PM EDT 12/03/2024 9:17 AM EDT us Josefa Monroe MD LAB URINE ORDERABLES Final Resu lt [facility] 299 [place] [address], [place] [phone] * (ABNORMAL) Urinalysis with reflex microscopic and culture (12/01/2024 4:53 PM EDT) Pathologist [facility] Specific [place] Urine 12/03/2024 9:[address] [facility] Comment:Unable to interpret due to color interference. pH, Urine 12/03/2024 9:[address] [facility] Comment:Unable to interpret due to color interference. Leukocytes, Urine 12/03/2024 9:[address] [facility] Comment:Unable to interpret due to color interference. Nitrite, Urine 12/03/2024 9:[address] [facility] Comment:Unable to interpret due to color interference. Protein, Urine 12/03/2024 9:[address] [facility] Comment:Unable to interpret due to color interference. Glucose, Urine 12/03/2024 9:41 AM [facility] Comment:Unable to interpret due to color interference. Ketones, Urine 12/03/2024 9:[address] [facility] Comment:Unable to interpret due to color interference. Urobilinogen, Urine 12/03/2024 9:[address] [facility] Comment:Unable to interpret due to color interference. Bilirubin, Urine 12/03/2024 9:[address] [facility] Comment:Unable to interpret due to color interference. Blood, Urine 12/03/2024 9:41 AM [facility] Comment:Unable to interpret due to color interference. RBC, Urine 4.2(H) 0 - 4 /HPF LAB URINALYSIS - AUTOMATED METHOD 12/03/2024 9:41 AM [facility] WBC, Urine 0.5 0 - 4 /HPF LAB URINALYSIS - AUTOMATED METHOD 12/03/2024 9:41 AM [facility] Squamous Epithelial, Urine 23 0 - 60 /LPF LAB URINALYSIS - AUTOMATED METHOD 12/03/2024 9:41 AM [facility] Bacteria, Urine Negative Negative /HPF LAB URINALYSIS - AUTOMATED METHOD 12/03/2024 9:41 AM [facility] Hyaline Casts, Urine 3.6(H) 0 - 3 /LPF LAB URINALYSIS - AUTOMATED METHOD 12/03/2024 9:41 AM [facility] Urine Urine specimen obtained by clean catch procedure / Unknown 12/01/2024 4:53 PM EDT 12/03/2024 9:17 AM EDT us Josefa Monroe MD LAB URINE ORDERABLES Final Resu lt [facility] 299 [place] [address], documented in this encounter Visit Diagnoses Diagnosis Unspecified atrial fibrillation (CMS/HCC V24, CMS/HCC V28) documented in this encounter Additional Health [...] as of this encounter Care Teams Manager News Relationship Specialty Start Date End Date Sheridan Logan MD [address] [place] [address] PCP - General Internal Medicine 04/30/12 documented as of this encounter
--- OUTSIDE RECORDS SUMMARY | 2025-05-30 11:28 | XMS_ITS | Encounter Summary ---
Author Organization [facility] Address [address] [place] [address] Care Team Providers Care Gizzard Puller Name Role Phone Sherdian Logan MD Primary Care Provider [phone] Encounter Details Date Type Department Care Team (Late Contact Info) Description 12/05/2024 Lab Requisition [facility] - Main Lab 299 [facility] [place] [phone] Mike Weaver PA 280 [facility] [address] [place] [address] Urinary tract infection, site not specified Social [...] Description 06/09/2025 11:00 AM EST Clinical Support [facility] 271 [place] [phone] 11/17/2025 2:00 PM EDT Office Visit Gastroenterology - [address] [place] [phone] Grisel Ford PA [address] [place] [address] documented as of this encounter Goals Goal [...] Procedure Name Priority Date/Time Associated Diagnosis Comments CULTURE URINE Routine 12/05/2024 3:30 PM EDT Urinary tract infection, site not specified documented in this encounter Results * Culture urine (12/05/2024 3:30 PM EDT) Culture, Urine 50,000-99,000 CFU/mL Mixed bacterial morphotypes present suggestive of possible contamination during collection. Suggest appropriate recollection if clinically indicated. 12/06/2024 1:[address] [facility] Urine Urine specimen obtained by clean catch procedure / Unknown 12/05/2024 3:30 PM EDT 12/05/2024 7:16 PM EDT Mike BARBOZA LAB MICROBIOLOGY - GENERAL ORDER REY Final Result [facility] [address] [place] [address], documented in this encounter Visit Diagnoses Diagnosis [...] documented as of this encounter Care Teams Gizzard Puller Relationship Specialty Start Date End Date Sheridan Logan MD [address] [place] [phone] PCP - General Internal Medicine 04/30/12 documented as of this encounter
--- OUTSIDE RECORDS SUMMARY | 2025-05-30 11:28 | XMS_ITS | Encounter Summary ---
Author Organization [facility] Address [address] [place] [address] Care Team Providers Care Cisco Unified Communications Engineer Name Role Phone Sheridan Logan MD Primary Care Provider [phone] Encounter Details Date Type Department Care Team (Late Contact Info) Description 11/18/2024 Lab Requisition [facility] - Main Lab 299 [facility] [place] [phone] Josefa Monroe MD [address] [place] [address] Essential (primary) hypertension Social History Tobacco Use Types Packs/Day Years [...] Description 06/09/2025 11:00 AM EST Clinical Support [facility] [address] [place] [phone] 11/17/2025 2:00 PM EDT Office Visit Gastroenterology - 299 [facility] [address] [phone] Grisel Ford PA 299 [address] [place] [address] documented as of this encounter Goals Goal [...] Procedure Name Priority Date/Time Associated Diagnosis Comments COMPLETE BLOOD COUNT Routine 11/18/2024 6:55 AM EDT Essential (primary) hypertension BASIC METABOLIC PANEL Routine 11/18/2024 6:55 AM EDT Essential (primary) hypertension documented in this encounter Results * (ABNORMAL) Basic metabolic panel (11/18/2024 6:55 AM EDT) Sodium 133 133 - 145 mmol/L LAB CHEMISTRY METHOD 11/18/2024 10:27 AM EDT [facility] Potassium 3.7 3.5 - 5.5 mmol/L LAB CHEMISTRY METHOD 11/18/2024 10:27 AM [facility] Chloride 96 96 - 110 mmol/L LAB CHEMISTRY METHOD 11/18/2024 10:27 AM [facility] CO2 29 21 - 32 mmol/L LAB CHEMISTRY METHOD 11/18/2024 10:27 AM [facility] Anion Gap 8 3 - 11 LAB CHEMISTRY METHOD 11/18/2024 10:27 AM [facility] Glucose 101(H) 70 - 100 mg/dL LAB CHEMISTRY METHOD 11/18/2024 10:27 AM [facility] BUN 24 5 - 25 mg/dL LAB CHEMISTRY METHOD 11/18/2024 10:27 AM [facility] Creatinine 1.02 0.50 - 1.10 mg/dL LAB CHEMISTRY METHOD 11/18/2024 10:27 AM [facility] eGFR 59(L) >=60 mL/min/1. 73m2 LAB CHEMISTRY METHOD 11/18/2024 10:27 AM [facility] Comment:Calculation based on the Chronic Kidney Disease Epidemiology Collaboration (CKD-EPI) equation refit without adjustment for race. BUN/Creatinine Ratio 23.5 LAB CHEMISTRY METHOD 11/18/2024 10:27 AM [facility] Calcium 8.9 8.5 - 10.5 mg/dL LAB CHEMISTRY METHOD 11/18/2024 10:27 AM [facility] Blood Venous blood specimen / Unknown Venipuncture / Unknown 11/18/2024 6:55 AM EDT 11/18/2024 8:39 AM EDT us Josefa Monroe MD LAB BLOOD ORDERABLES Final Resu lt [facility] 299 [place] [address], * (ABNORMAL) Complete blood count (11/18/2024 6:55 AM EDT) [facility] WBC 7.6 4.8 - 10.8 K/mcL LAB HEMETOLOGY METHOD 11/18/2024 10:09 AM [facility] RBC 4.40 3.80 - 4.80 M/mcL LAB HEMETOLOGY METHOD 11/18/2024 10:09 AM [facility] Hemoglobin 11.8 11.5 - 16.0 g/dL LAB HEMETOLOGY METHOD 11/18/2024 10:09 AM [facility] Hematocrit 38.7 35.0 - 47.0 % LAB HEMETOLOGY METHOD 11/18/2024 10:09 AM [facility] MCV 88.6 79.0 - 98.0 FL LAB HEMETOLOGY METHOD 11/18/2024 10:09 AM [facility] MCH 27.0 27.0 - 32.0 pcg LAB HEMETOLOGY METHOD 11/18/2024 10:09 AM [facility] MCHC 30.5(L) 32.0 - 37.0 g/dL LAB HEMETOLOGY METHOD 11/18/2024 10:09 AM [facility] RDW 15.9(H) 11.0 - 15.0 % LAB HEMETOLOGY METHOD 11/18/2024 10:09 AM [facility] Platelets 307 130 - 400 K/mcL LAB HEMETOLOGY METHOD 11/18/2024 10:09 AM [facility] MPV 10.2 7.0 - 11.0 FL LAB HEMETOLOGY METHOD 11/18/2024 10:09 AM [facility] NRBC 0.0 <1.0 % LAB HEMETOLOGY METHOD 11/18/2024 10:09 AM [facility] NRBC Absolute 0.00 <0.10 K/mcL LAB HEMETOLOGY METHOD 11/18/2024 10:09 AM EDT [facility] Blood Venous blood specimen / Unknown Venipuncture / Unknown 11/18/2024 6:55 AM EDT 11/18/2024 8:39 AM EDT us Josefa Monroe MD LAB BLOOD ORDERABLES Final Resu lt [facility] [address] [place] [address], [place] [phone] documented in this encounter Visit Diagnoses Diagnosis Essential (primary) hypertension Unspecified essential hypertension documented in this encounter Additional Health Concerns [...] documented as of this encounter Care Teams [employer] Unified Communications Engineer Relationship Specialty Start Date End Date Sheridan Logan MD [address] [place] [phone] PCP - General Internal Medicine 04/30/12 documented as of this encounter
--- OUTSIDE RECORDS SUMMARY | 2025-05-30 11:28 | XMS_ITS | Encounter Summary ---
Author Organization [facility] Address [address] [place] [address] Care Team Providers Care Picture Frames Inspector Name Role Phone Sheridan Logan MD Primary Care Provider [phone] Encounter Details Date Type Department Care Team (Latest Contact Info) Description 04/17/2025 Lab Requisition [facility] - Main Lab 299 [facility] [place] [phone] Josefa Monroe MD [address] [place] [address] Encounter for screening for cardiovascular disorders; Encounter for general adult medical examination without abnormal findings Social History Tobacco Use Types Packs/Day Years [...] Description 06/09/2025 11:00 AM EST Clinical Support [facility] [address] [place] [phone] 11/17/2025 2:00 PM EDT Office Visit Gastroenterology - 299 [facility] 299 [facility] [address] [place] [phone] Grisel Ford PA [address] [facility] [address] [place] [address] documented as of this encounter Goals Goal [...] Procedure Name Priority Date/Time Associated Diagnosis Comments CBC WITH AUTO DIFFERENTIAL Routine 04/17/2025 8:20 [...] general adult medical examination without abnormal findings documented in this encounter Results * (ABNORMAL) CBC auto differential (04/17/2025 8:20 AM EST) [facility] WBC 7.8 4.8 - 10.8 K/mcL LAB HEMETOLOGY METHOD 04/17/2025 11:28 AM [facility] RBC 5.00(H) 3.80 - 4.80 M/mcL LAB HEMETOLOGY METHOD 04/17/2025 11:28 AM [facility] Hemoglobin 13.2 11.5 - 16.0 g/dL LAB HEMETOLOGY METHOD 04/17/2025 11:28 AM [facility] Hematocrit 42.3 35.0 - 47.0 % LAB HEMETOLOGY METHOD 04/17/2025 11:28 AM [facility] MCV 84.4 79.0 - 98.0 FL LAB HEMETOLOGY METHOD 04/17/2025 11:28 AM [facility] MCH 26.3(L) 27.0 - 32.0 pcg LAB HEMETOLOGY METHOD 04/17/2025 11:28 AM [facility] MCHC 31.2(L) 32.0 - 37.0 g/dL LAB HEMETOLOGY METHOD 04/17/2025 11:28 AM [facility] RDW 15.7(H) 11.0 - 15.0 % LAB HEMETOLOGY METHOD 04/17/2025 11:28 AM [facility] Platelets 294 130 - 400 K/mcL LAB HEMETOLOGY METHOD 04/17/2025 11:28 AM [facility] MPV 10.5 7.0 - 11.0 FL LAB HEMETOLOGY METHOD 04/17/2025 11:28 AM [facility] NRBC 0.0 <1.0 % LAB HEMETOLOGY METHOD 04/17/2025 11:28 AM [facility] NRBC Absolute 0.00 <0.10 K/mcL LAB HEMETOLOGY METHOD 04/17/2025 11:28 AM [facility] Neutrophils Relative 69.6 % LAB HEMETOLOGY METHOD 04/17/2025 11:28 AM [facility] Lymphocytes Relative 17.6 % LAB HEMETOLOGY METHOD 04/17/2025 11:28 AM [facility] Monocytes Relative 8.6 % LAB HEMETOLOGY METHOD 04/17/2025 11:28 AM [facility] Eosinophils Relative 3.3 % LAB HEMETOLOGY METHOD 04/17/2025 11:28 AM [facility] Basophils Relative 0.4 % LAB HEMETOLOGY METHOD 04/17/2025 11:28 AM [facility] Immature Granulocytes Relative 0.5 % LAB HEMETOLOGY METHOD 04/17/2025 11:28 AM [facility] Neutrophils Absolute 5.44 1.50 - 7.00 K/mcL LAB HEMETOLOGY METHOD 04/17/2025 11:28 AM [facility] Lymphocytes Absolute 1.38 1.00 - 5.00 K/mcL LAB HEMETOLOGY METHOD 04/17/2025 11:28 AM [facility] Monocytes Absolute 0.67 0.20 - 1.00 K/mcL LAB HEMETOLOGY METHOD 04/17/2025 11:28 AM [facility] Eosinophils Absolute 0.26 0.00 - 0.50 K/mcL LAB HEMETOLOGY METHOD 04/17/2025 11:28 AM [facility] Basophils Absolute 0.03 0.00 - 0.20 K/mcL LAB HEMETOLOGY METHOD 04/17/2025 11:28 AM [facility] Immature Granulocytes Absolute 0.04(H) 0.00 - 0.03 K/mcL LAB HEMETOLOGY METHOD 04/17/2025 11:28 AM [facility] Blood Venous blood specimen / Unknown Venipuncture / Unknown 04/17/2025 8:20 AM EST 04/17/2025 10:54 AM EST us Josefa Monroe MD LAB BLOOD ORDERABLES Final Resu lt [facility] [address] [place] [address], [place] [phone] * (ABNORMAL) Basic metabolic panel (04/17/2025 8:20 AM EST) Sodium 136 133 - 145 mmol/L LAB CHEMISTRY METHOD 04/17/2025 12:10 PM [facility] Potassium 3.6 3.5 - 5.5 mmol/L LAB CHEMISTRY METHOD 04/17/2025 12:10 PM [facility] Chloride 96 96 - 110 mmol/L LAB CHEMISTRY METHOD 04/17/2025 12:10 PM [facility] CO2 33(H) 21 - 32 mmol/L LAB CHEMISTRY METHOD 04/17/2025 12:10 PM [facility] Anion Gap 7 3 - 11 LAB CHEMISTRY METHOD 04/17/2025 12:10 PM [facility] Glucose 91 70 - 100 mg/dL LAB CHEMISTRY METHOD 04/17/2025 12:10 PM [facility] BUN 23 5 - 25 mg/dL LAB CHEMISTRY METHOD 04/17/2025 12:10 PM [facility] Creatinine 1.04 0.50 - 1.10 mg/dL LAB CHEMISTRY METHOD 04/17/2025 12:10 PM [facility] eGFR 58(L) >=60 mL/min/1. 73m2 LAB CHEMISTRY METHOD 04/17/2025 12:10 PM [facility] Comment:Calculation based on the Chronic Kidney Disease Epidemiology Collaboration (CKD-EPI) equation refit without adjustment for race. BUN/Creatinine Ratio 22.1 LAB CHEMISTRY METHOD 04/17/2025 12:[address] [facility] Calcium 8.8 8.5 - 10.5 mg/dL LAB CHEMISTRY METHOD 04/17/2025 12:[address] [facility] Blood Venous blood specimen / Unknown Venipuncture / Unknown 04/17/2025 8:20 AM EST 04/17/2025 10:54 AM EST us Josefa Monroe MD LAB BLOOD ORDERABLES Final Resu lt [facility] [address] [place] [address], [place] [phone] documented in this encounter Visit Diagnoses Diagnosis Encounter for screening for cardiovascular disorders Encounter for general adult medical examination without abnormal findings documented in this encounter Additional Health Concerns [...] documented as of this encounter Care Teams Picture Frames Inspector Relationship Specialty Start Date End Date Sheridan Logan MD [address] [place] [phone] PCP - General Internal Medicine 04/30/12 documented as of this encounter
--- OUTSIDE RECORDS SUMMARY | 2025-05-30 11:28 | XMS_ITS | Encounter Summary ---
Author Organization [facility] Address [address] [place] [address] Care Team Providers Care Dowel Inserting Machine Operator Name Role Phone Sheridan Logan MD Primary Care Provider [phone] Encounter Details Date Type Department Care Team (Late Contact Info) Description 11/14/2024 Lab Requisition [facility] - Main Lab 299 [facility] [place] [phone] Josefa Monroe MD [address] [place] [address] Hypo-osmolality and hyponatremia; Urinary tract infection, site not specified; Cellulitis, unspecified Social History Tobacco Use Types Packs/Day [...] Description 06/09/2025 11:00 AM EST Clinical Support [facility] [address] [place] [phone] 11/17/2025 2:00 PM EDT Office Visit Gastroenterology - 299 [facility] 299 [facility] [address] [place] [phone] Grisel Ford PA 299 [facility] [address] [place] [address] documented as of this encounter Goals Goal [...] Associated Diagnosis Comments COMPLETE BLOOD COUNT Routine 11/14/2024 7:14 AM EDT Hypo-osmolality and hyponatremia Urinary tract infection, site not specified Cellulitis, unspecified BASIC METABOLIC PANEL Routine 11/14/2024 7:14 AM EDT Hypo-osmolality and hyponatremia Urinary tract infection, site not specified Cellulitis, unspecified documented in this encounter Results * Basic metabolic panel (11/14/2024 7:14 AM EDT) Sodium 134 133 - 145 mmol/L LAB CHEMISTRY METHOD 11/14/2024 10:43 AM [facility] Potassium 3.8 3.5 - 5.5 mmol/L LAB CHEMISTRY METHOD 11/14/2024 10:43 AM [facility] Chloride 97 96 - 110 mmol/L LAB CHEMISTRY METHOD 11/14/2024 10:43 AM [facility] CO2 27 21 - 32 mmol/L LAB CHEMISTRY METHOD 11/14/2024 10:43 AM [facility] Anion Gap 10 3 - 11 LAB CHEMISTRY METHOD 11/14/2024 10:43 AM [facility] Glucose 88 70 - 100 mg/dL LAB CHEMISTRY METHOD 11/14/2024 10:43 AM [facility] BUN 23 5 - 25 mg/dL LAB CHEMISTRY METHOD 11/14/2024 10:43 AM [facility] Creatinine 0.91 0.50 - 1.10 mg/dL LAB CHEMISTRY METHOD 11/14/2024 10:43 AM [facility] eGFR 68 >=60 mL/min/1. 73m2 LAB CHEMISTRY METHOD 11/14/2024 10:43 AM [facility] Comment:Calculation based on the Chronic Kidney Disease Epidemiology Collaboration (CKD-EPI) equation refit without adjustment for race. BUN/Creatinine Ratio 25.3 LAB CHEMISTRY METHOD 11/14/2024 10:43 AM [facility] Calcium 8.5 8.5 - 10.5 mg/dL LAB CHEMISTRY METHOD 11/14/2024 10:43 AM [facility] Blood Venous blood specimen / Unknown Venipuncture / Unknown 11/14/2024 7:14 AM EDT 11/14/2024 9:33 AM EDT us Josefa Monroe MD LAB BLOOD ORDERABLES Final Resu lt [facility] [address] [place] [address], * (ABNORMAL) Complete blood count (11/14/2024 7:14 AM EDT) [facility] WBC 8.9 4.8 - 10.8 K/mcL LAB HEMETOLOGY METHOD 11/14/2024 9:47 AM EDT [facility] RBC 4.40 3.80 - 4.80 M/mcL LAB HEMETOLOGY METHOD 11/14/2024 9:47 AM EDT [facility] Hemoglobin 12.0 11.5 - 16.0 g/dL LAB HEMETOLOGY METHOD 11/14/2024 9:47 AM [facility] Hematocrit 38.6 35.0 - 47.0 % LAB HEMETOLOGY METHOD 11/14/2024 9:47 AM [facility] MCV 87.7 79.0 - 98.0 FL LAB HEMETOLOGY METHOD 11/14/2024 9:47 AM [facility] MCH 27.3 27.0 - 32.0 pcg LAB HEMETOLOGY METHOD 11/14/2024 9:47 AM [facility] MCHC 31.1(L) 32.0 - 37.0 g/dL LAB HEMETOLOGY METHOD 11/14/2024 9:47 AM [facility] RDW 15.9(H) 11.0 - 15.0 % LAB HEMETOLOGY METHOD 11/14/2024 9:47 AM [facility] Platelets 307 130 - 400 K/mcL LAB HEMETOLOGY METHOD 11/14/2024 9:47 AM [facility] MPV 10.4 7.0 - 11.0 FL LAB HEMETOLOGY METHOD 11/14/2024 9:47 AM [facility] NRBC 0.0 <1.0 % LAB HEMETOLOGY METHOD 11/14/2024 9:47 AM EDT [facility] NRBC Absolute 0.00 <0.10 K/mcL LAB HEMETOLOGY METHOD 11/14/2024 9:47 AM EDT [facility] Blood Venous blood specimen / Unknown Venipuncture / Unknown 11/14/2024 7:14 AM EDT 11/14/2024 9:33 AM EDT us Josefa Monroe MD LAB BLOOD ORDERABLES Final Resu lt [facility] [address] [place] [address], documented in this encounter Visit Diagnoses Diagnosis Hypo-osmolality and hyponatremia Urinary tract infection, site not specified Cellulitis, unspecified documented in this encounter Additional Health [...] documented as of this encounter Care Teams Dowel Inserting Machine Operator Relationship Specialty Start Date End Date Sheridan Logan MD [address] [place] [id number] PCP - General Internal Medicine 04/30/12 documented as of this encounter
--- OUTSIDE RECORDS SUMMARY | 2025-05-30 11:29 | XMS_ITS | Encounter Summary ---
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[facility] V24, [facility] V28); Acquired absence of right leg below knee ([facility] V24, [facility] V28); Non-pressure chronic ulcer of other part of right lower leg with fat layer exposed ([facility] V24, [facility] V28) Social History Tobacco Use Types Packs/Day [...] 06/09/2025 11:00 AM EST Clinical Support [facility] [address] [place] [phone] 11/17/2025 2:00 PM EDT Office Visit Gastroenterology - 299 [address] [address] [facility] [address] [place] [phone] Grisel Ford PA [address] [place] [address] documented as of this encounter Goals Goal [...] Associated Diagnosis Comments COMPLETE BLOOD COUNT Routine 09/09/2024 9:23 AM EDT 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 (CMS/HCC) Non-pressure chronic ulcer of other part of right lower leg with fat layer exposed COMPREHENSIVE METABOLIC PANEL Routine 09/09/2024 9:23 AM EDT 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 (CMS/HCC) Non-pressure chronic ulcer of other part of right lower leg with fat layer exposed documented in this encounter Results * (ABNORMAL) Comprehensive metabolic panel (09/09/2024 9:23 AM EDT) Sodium 133 133 - 145 mmol/L LAB CHEMISTRY METHOD 09/09/2024 1:10 PM [facility] Potassium 4.0 3.5 - 5.5 mmol/L LAB CHEMISTRY METHOD 09/09/2024 1:10 PM [facility] Chloride 98 96 - 110 mmol/L LAB CHEMISTRY METHOD 09/09/2024 1:10 PM [facility] CO2 26 21 - 32 mmol/L LAB CHEMISTRY METHOD 09/09/2024 1:10 PM [facility] Anion Gap 9 3 - 11 LAB CHEMISTRY METHOD 09/09/2024 1:10 PM [facility] Glucose 144(H) 70 - 100 mg/dL LAB CHEMISTRY METHOD 09/09/2024 1:10 PM [facility] BUN 13 5 - 25 mg/dL LAB CHEMISTRY METHOD 09/09/2024 1:10 PM [facility] Creatinine 0.95 0.50 - 1.10 mg/dL LAB CHEMISTRY METHOD 09/09/2024 1:10 PM [facility] eGFR 65 >=60 mL/min/1. 73m2 LAB CHEMISTRY METHOD 09/09/2024 1:10 PM [facility] Comment:Calculation based on the Chronic Kidney Disease Epidemiology Collaboration (CKD-EPI) equation refit without adjustment for race. BUN/Creatinine Ratio 13.7 LAB CHEMISTRY METHOD 09/09/2024 1:10 PM [facility] Calcium 8.1(L) 8.5 - 10.5 mg/dL LAB CHEMISTRY METHOD 09/09/2024 1:10 PM [facility] AST (SGOT) 21 10 - 42 unit/L LAB CHEMISTRY METHOD 09/09/2024 1:10 PM EDT [facility] ALT (SGPT) 18 10 - 60 unit/L LAB CHEMISTRY METHOD 09/09/2024 1:10 PM EDT [facility] Alkaline Phosphatase 81 42 - 121 unit/L LAB CHEMISTRY METHOD 09/09/2024 1:10 PM EDT [facility] Total Protein 6.1 6.0 - 8.0 g/dL LAB CHEMISTRY METHOD 09/09/2024 1:10 PM EDT [facility] Albumin 2.8(L) 3.2 - 5.0 g/dL LAB CHEMISTRY METHOD 09/09/2024 1:10 PM EDT [facility] Total Bilirubin 0.4 0.0 - 1.4 mg/dL LAB CHEMISTRY METHOD 09/09/2024 1:10 PM EDT [facility] Blood Venous blood specimen / Unknown Venipuncture / Unknown 09/09/2024 9:23 AM EDT 09/09/2024 10:48 AM EDT us Josefa Monroe MD LAB BLOOD ORDERABLES Final Resu lt [facility] [address] [place] [address], * (ABNORMAL) Complete blood count (09/09/2024 9:23 AM EDT) WBC 6.4 4.8 - 10.8 K/mcL LAB HEMETOLOGY METHOD 09/09/2024 12:48 PM EDT [facility] RBC 3.90 3.80 - 4.80 M/mcL LAB HEMETOLOGY METHOD 09/09/2024 12:48 PM EDT [facility] Hemoglobin 10.8(L) 11.5 - 16.0 g/dL LAB HEMETOLOGY METHOD 09/09/2024 12:48 PM EDT [facility] Hematocrit 34.1(L) 35.0 - 47.0 % LAB HEMETOLOGY METHOD 09/09/2024 12:48 PM EDT [facility] MCV 87.7 79.0 - 98.0 FL LAB HEMETOLOGY METHOD 09/09/2024 12:48 PM EDT [facility] MCH 27.8 27.0 - 32.0 pcg LAB HEMETOLOGY METHOD 09/09/2024 12:48 PM EDT [facility] MCHC 31.7(L) 32.0 - 37.0 g/dL LAB HEMETOLOGY METHOD 09/09/2024 12:48 PM EDT [facility] RDW 15.3(H) 11.0 - 15.0 % LAB HEMETOLOGY METHOD 09/09/2024 12:48 PM EDT [facility] Platelets 294 130 - 400 K/mcL LAB HEMETOLOGY METHOD 09/09/2024 12:48 PM EDT [facility] MPV 10.2 7.0 - 11.0 FL LAB HEMETOLOGY METHOD 09/09/2024 12:48 PM EDT [facility] NRBC 0.0 <1.0 % LAB HEMETOLOGY METHOD 09/09/2024 12:48 PM EDT [facility] NRBC Absolute 0.00 <0.10 K/mcL LAB HEMETOLOGY METHOD 09/09/2024 12:48 PM EDT [facility] Blood Venous blood specimen / Unknown Venipuncture / Unknown 09/09/2024 9:23 AM EDT 09/09/2024 10:48 AM EDT us Josefa Monroe MD LAB BLOOD ORDERABLES Final Resu lt [facility] [address] [place], [place] [address] [phone] documented in this encounter Visit Diagnoses Diagnosis Other complications of amputation stump ([facility] V24, CMS/HCC V28) Acquired absence of right leg below knee (CMS/HCC V24, CMS/HCC V28) Non-pressure chronic ulcer of other part of right lower leg with fat layer exposed (CMS/HCC V24, [facility] V28) documented in this encounter Additional Health [...] documented as of this encounter Care Teams Oil Spot Washer Relationship Specialty Start Date End Date Sheridan Logan MD [address] [place] [phone] PCP - General Internal Medicine 04/30/12 documented as of this encounter
--- OUTSIDE RECORDS SUMMARY | 2025-05-30 11:29 | XMS_ITS | Encounter Summary ---
Author Organization [facility] Address [address] [place] [address] Care Team Providers Care Speech Assistant Name Role Phone Sheridan Logan MD Primary Care Provider [phone] Encounter Details Date Type Department Care Team (Late Contact Info) Description 04/02/2025 Lab Requisition [facility] - Main Lab 299 [facility] [place] [facility] [phone] Kaitlin Rodriguez PA [address] [facility] 1 [place] [address] Urinary tract infection, site not specified Social [...] Description 06/09/2025 11:00 AM EST Clinical Support [facility] [address] [place] [phone] 11/17/2025 2:00 PM EDT Office Visit Gastroenterology - 299 [facility] [address] [phone] Grisel Ford PA 299 [facility] [address] [place] [address] documented as of this encounter Goals Goal [...] Diagnosis Comments URINALYSIS WITH REFLEX MICROSCOPIC Routine 04/01/2025 8:00 PM EDT Urinary tract infection, site not specified URINALYSIS WITH REFLEX MICROSCOPIC Routine 04/01/2025 8:00 PM EDT Urinary tract infection, site not specified CULTURE URINE Routine 04/01/2025 8:00 PM EDT Urinary tract infection, site not specified documented in this encounter Results * (ABNORMAL) Urinalysis with reflex microscopic (04/01/2025 8:00 PM EDT) Specific [place] Urine 1.016 1.003 - 1.030 LAB URINALYSIS - AUTOMATED METHOD 04/02/2025 10:49 AM [facility] pH, Urine 5.5 5.0 - 8.0 pH LAB URINALYSIS - AUTOMATED METHOD 04/02/2025 10:49 AM [facility] Leukocytes, Urine Trace(A) Negative LAB URINALYSIS - AUTOMATED METHOD 04/02/2025 10:49 AM [facility] Nitrite, Urine Negative Negative LAB URINALYSIS - AUTOMATED METHOD 04/02/2025 10:49 AM [facility] Protein, Urine Negative <=Trace mg/dL LAB URINALYSIS - AUTOMATED METHOD 04/02/2025 10:49 AM [facility] Glucose, Urine Negative Negative mg/dL LAB URINALYSIS - AUTOMATED METHOD 04/02/2025 10:49 AM [facility] Ketones, Urine Negative Negative mg/dL LAB URINALYSIS - AUTOMATED METHOD 04/02/2025 10:49 AM [facility] Urobilinogen , Urine 0.2 0.2 - 1.0 mg/dL LAB URINALYSIS - AUTOMATED METHOD 04/02/2025 10:49 AM [facility] Bilirubin, Urine Negative Negative LAB URINALYSIS - AUTOMATED METHOD 04/02/2025 10:49 AM [facility] Blood, Urine Negative Negative LAB URINALYSIS - AUTOMATED METHOD 04/02/2025 10:49 AM [facility] RBC, Urine 2.3 0 - 4 /HPF LAB URINALYSIS - AUTOMATED METHOD 04/02/2025 10:49 AM [facility] WBC, Urine 0.2 0 - 4 /HPF LAB URINALYSIS - AUTOMATED METHOD 04/02/2025 10:49 AM [facility] Squamous Epithelial, Urine 54 0 - 60 /LPF LAB URINALYSIS - AUTOMATED METHOD 04/02/2025 10:49 AM [facility] Crystals, Urine Moderate Calcium Oxalate crystals. /LPF 04/02/2025 10:49 AM EDT [facility] Bacteria, Urine Negative Negative /HPF LAB URINALYSIS - AUTOMATED METHOD 04/02/2025 10:49 AM EDT [facility] Hyaline Casts, Urine 4.4(H) 0 - 3 /LPF LAB URINALYSIS - AUTOMATED METHOD 04/02/2025 10:49 AM EDT [facility] Urine Urine specimen obtained by clean catch procedure / Unknown Non-blood Collection / Unknown 04/01/2025 8:00 PM EDT 04/02/2025 10:03 AM EDT Kaitlin BARBOZA LAB URINE ORDERABLES Final Resul t Performing Organization Address City/[facility]/ZIP Co de Phone Number [facility] [address] [place] [address], [place] [phone] * Culture urine (04/01/2025 8:00 PM EDT) Culture, Urine 10,000-49,000 CFU/mL Mixed bacterial morphotypes present suggestive of possible contamination during collection. Suggest appropriate recollection if clinically indicated. 04/03/2025 8:57 AM EDT [facility] Urine Urine specimen obtained by clean catch procedure / Unknown Non-blood Collection / Unknown 04/01/2025 8:00 PM EDT 04/02/2025 10:03 AM EDT us Kaitlin BARBOZA LAB MICROBIOLOGY - GENERAL ORDER REY Final Result [facility] [address] [place] [address], [place] [phone] documented in this encounter Visit Diagnoses Diagnosis [...] documented as of this encounter Care Teams Speech Assistant Relationship Specialty Start Date End Date Sheridan Logan MD [address] [place] [address] PCP - General Internal Medicine 04/30/12 documented as of this encounter
--- OUTSIDE RECORDS SUMMARY | 2025-05-30 11:29 | XMS_ITS | Encounter Summary ---
Author Organization [facility] Address [address] [place] [address] Care Team Providers Care Engraver Tender Name Role Phone Sheridan Logan MD Primary Care Provider [phone] Encounter Details Date Type Department Care Team (Late Contact Info) Description 11/04/2024 Lab Requisition [facility] - Main Lab 299 [facility] [place] [phone] Josefa Monroe MD [address] [place] [address] Unspecified abnormal findings in urine Social History Tobacco Use Types Packs/Day Years [...] 06/09/2025 11:00 AM EST Clinical Support [facility] [address] [place] [phone] 11/17/2025 2:00 PM EDT Office Visit Gastroenterology - 299 [facility] 299 [facility] [address] [place] [phone] Grisel Ford PA 299 [facility] [address] [place] [address] documented as of this encounter Goals Goal [...] Diagnosis Comments URINALYSIS WITH REFLEX MICROSCOPIC Routine 11/03/2024 12:00 AM EDT Unspecified abnormal findings in urine [place] URINE CULTURE TUBE Routine 11/03/2024 12:00 AM EDT Unspecified abnormal findings in urine URINALYSIS WITH REFLEX MICROSCOPIC Routine 11/03/2024 12:00 AM EDT Unspecified abnormal findings in urine documented in this encounter Results * (ABNORMAL) Urinalysis with reflex microscopic (11/03/2024 12:00 AM EDT) Specific [place] Urine 1.019 1.003 - 1.030 LAB URINALYSIS - AUTOMATED METHOD 11/04/2024 11:33 AM [facility] pH, Urine 5.5 5.0 - 8.0 pH LAB URINALYSIS - AUTOMATED METHOD 11/04/2024 11:33 AM [facility] Leukocytes, Urine Large(A) Negative LAB URINALYSIS - AUTOMATED METHOD 11/04/2024 11:33 AM [facility] Nitrite, Urine Positive(A) Negative LAB URINALYSIS - AUTOMATED METHOD 11/04/2024 11:33 AM [facility] Protein, Urine Trace <=Trace mg/dL LAB URINALYSIS - AUTOMATED METHOD 11/04/2024 11:33 AM [facility] Glucose, Urine Negative Negative mg/dL LAB URINALYSIS - AUTOMATED METHOD 11/04/2024 11:33 AM [facility] Ketones, Urine Trace(A) Negative mg/dL LAB URINALYSIS - AUTOMATED METHOD 11/04/2024 11:33 AM [facility] Urobilinogen , Urine 0.2 0.2 - 1.0 mg/dL LAB URINALYSIS - AUTOMATED METHOD 11/04/2024 11:33 AM [facility] Bilirubin, Urine Negative Negative LAB URINALYSIS - AUTOMATED METHOD 11/04/2024 11:33 AM [facility] Blood, Urine Negative Negative LAB URINALYSIS - AUTOMATED METHOD 11/04/2024 11:33 AM [facility] RBC, Urine 2.7 0 - 4 /HPF LAB URINALYSIS - AUTOMATED METHOD 11/04/2024 11:33 AM [facility] WBC, Urine 140.3(H) 0 - 4 /HPF LAB URINALYSIS - AUTOMATED METHOD 11/04/2024 11:33 AM [facility] Squamous Epithelial, Urine >100(H) 0 - 60 /LPF LAB URINALYSIS - AUTOMATED METHOD 11/04/2024 11:33 AM EDT [facility] Bacteria, Urine Few(A) Negative /HPF LAB URINALYSIS - AUTOMATED METHOD 11/04/2024 11:33 AM EDT [facility] Hyaline Casts, Urine 7.2(H) 0 - 3 /LPF LAB URINALYSIS - AUTOMATED METHOD 11/04/2024 11:33 AM EDT [facility] Urine Urine specimen obtained by clean catch procedure / Unknown Non-blood Collection / Unknown 11/03/2024 11/04/2024 9:46 AM EDT us Josefa Monroe MD LAB URINE ORDERABLES Final Resu lt Performing Organization Address [facility]/ZIP Co de Phone Number [facility] [address] [place] [address], [place] [phone] * [place] urine culture tube (11/03/2024 12:00 AM EDT) Extra Tube Hold for add-ons. 11/04/2024 11:01 AM EDT [facility] Comment:Auto resulted. Urine Urine specimen obtained by clean catch procedure / Unknown Non-blood Collection / Unknown 11/03/2024 11/04/2024 9:46 AM EDT us Josefa Monroe MD LAB URINE ORDERABLES Final Resu lt Performing Organization Address [facility]/ZIP Co de Phone Number [facility] [address] [place] [address], [place] [phone] documented in this encounter Visit Diagnoses Diagnosis Unspecified abnormal findings in urine documented in this encounter Additional Health Concerns [...] documented as of this encounter Care Teams Engraver Tender Relationship Specialty Start Date End Date Sheridan Logan MD [address] [place] [address] PCP - General Internal Medicine 04/30/12 documented as of this encounter
--- OUTSIDE RECORDS SUMMARY | 2025-05-30 11:29 | XMS_ITS | Encounter Summary ---
Author Organization [facility] Address [address] [place] [address] Care Team Providers Care Regional Forester Name Role Phone Sheridan Logan MD Primary Care Provider Encounter Details Date Type Department Care Team (Late Contact Info) Description 10/30/[address] [facility] - Main Lab 299 [facility] [place] [phone] Josefa Monroe MD [address] [place] [address] Essential (primary) hypertension; Obesity, unspecified; Hypothyroidism, unspecified Social History Tobacco Use Types [...] Description 06/09/2025 11:00 AM EST Clinical Support [facility] [address] [place] [phone] 11/17/2025 2:00 PM EDT Office Visit Gastroenterology - [address] [place] [phone] Grisel Ford PA [address] [facility] [address] [place] [address] documented as of this encounter Goals Goal [...] Associated Diagnosis Comments COMPLETE BLOOD COUNT Routine 10/30/2024 6:40 AM EDT Essential (primary) hypertension Obesity, unspecified Hypothyroidism, unspecified BASIC METABOLIC PANEL Routine 10/30/2024 6:40 AM EDT Essential (primary) hypertension Obesity, unspecified Hypothyroidism, unspecified documented in this encounter Results * (ABNORMAL) Basic metabolic panel (10/30/2024 6:40 AM EDT) Sodium 137 133 - 145 mmol/L LAB CHEMISTRY METHOD 10/30/2024 1:58 PM EDT [facility] Potassium 4.2 3.5 - 5.5 mmol/L LAB CHEMISTRY METHOD 10/30/2024 1:58 PM T [facility] Chloride 100 96 - 110 mmol/L LAB CHEMISTRY METHOD 10/30/2024 1:58 PM [facility] CO2 26 21 - 32 mmol/L LAB CHEMISTRY METHOD 10/30/2024 1:58 PM [facility] Anion Gap 11 3 - 11 LAB CHEMISTRY METHOD 10/30/2024 1:58 PM [facility] Glucose 83 70 - 100 mg/dL LAB CHEMISTRY METHOD 10/30/2024 1:58 PM [facility] BUN 30(H) 5 - 25 mg/dL LAB CHEMISTRY METHOD 10/30/2024 1:58 PM [facility] Creatinine 0.82 0.50 - 1.10 mg/dL LAB CHEMISTRY METHOD 10/30/2024 1:58 PM [facility] eGFR 77 >=60 mL/min/1. 73m2 LAB CHEMISTRY METHOD 10/30/2024 1:58 PM [facility] Comment:Calculation based on the Chronic Kidney Disease Epidemiology Collaboration (CKD-EPI) equation refit without adjustment for race. BUN/Creatinine Ratio 36.6 LAB CHEMISTRY METHOD 10/30/2024 1:58 PM T [facility] Calcium 8.9 8.5 - 10.5 mg/dL LAB CHEMISTRY METHOD 10/30/2024 1:58 PM [facility] Blood Venous blood specimen / Unknown Venipuncture / Unknown 10/30/2024 6:40 AM EDT 10/30/2024 10:53 AM EDT us Josefa Monroe MD LAB BLOOD ORDERABLES Final Resu lt [facility] [address] [place] [address], * (ABNORMAL) Complete blood count (10/30/2024 6:40 AM EDT) [facility] WBC 9.6 4.8 - 10.8 K/mcL LAB HEMETOLOGY METHOD 10/30/2024 11:41 AM [facility] RBC 4.30 3.80 - 4.80 M/mcL LAB HEMETOLOGY METHOD 10/30/2024 11:41 AM [facility] Hemoglobin 11.5 11.5 - 16.0 g/dL LAB HEMETOLOGY METHOD 10/30/2024 11:41 AM [facility] Hematocrit 38.0 35.0 - 47.0 % LAB HEMETOLOGY METHOD 10/30/2024 11:41 AM [facility] MCV 88.8 79.0 - 98.0 FL LAB HEMETOLOGY METHOD 10/30/2024 11:41 AM [facility] MCH 26.9(L) 27.0 - 32.0 pcg LAB HEMETOLOGY METHOD 10/30/2024 11:41 AM [facility] MCHC 30.3(L) 32.0 - 37.0 g/dL LAB HEMETOLOGY METHOD 10/30/2024 11:41 AM [facility] RDW 15.7(H) 11.0 - 15.0 % LAB HEMETOLOGY METHOD 10/30/2024 11:41 AM [facility] Platelets 288 130 - 400 K/mcL LAB HEMETOLOGY METHOD 10/30/2024 11:41 AM [facility] MPV 11.0 7.0 - 11.0 FL LAB HEMETOLOGY METHOD 10/30/2024 11:41 AM [facility] NRBC 0.0 <1.0 % LAB HEMETOLOGY METHOD 10/30/2024 11:41 AM EDT [facility] NRBC Absolute 0.00 <0.10 K/mcL LAB HEMETOLOGY METHOD 10/30/2024 11:41 AM EDT [facility] Blood Venous blood specimen / Unknown Venipuncture / Unknown 10/30/2024 6:40 AM EDT 10/30/2024 10:53 AM EDT us Josefa Monroe MD LAB BLOOD ORDERABLES Final Resu lt [facility] [address] [place] [address], documented in this encounter Visit Diagnoses Diagnosis Essential (primary) hypertension Unspecified essential hypertension Obesity, unspecified Hypothyroidism, unspecified documented in this encounter Additional [...] documented as of this encounter Care Teams Regional Forester Relationship Specialty Start Date End Date Sheridan Logan MD [address] [place] [address] PCP - General Internal Medicine 04/30/12 documented as of this encounter
--- OUTSIDE RECORDS SUMMARY | 2025-05-30 11:29 | XMS_ITS | Encounter Summary ---
Author Organization [facility] Address [address] [place] [address] Care Team Providers Care Computer Laboratory Technician Name Role Phone Sheridan Logan MD Primary Care Provider [phone] Encounter Details Date Type Department Care Team (Late Contact Info) Description 11/11/2024 Lab Requisition [facility] - Main Lab 299 [facility] [place] [phone] Josefa Monroe MD [address] [place] [address] Cellulitis, unspecified Social History Tobacco Use Types [...] Description 06/09/2025 11:00 AM EST Clinical Support [facility] [address] [place] [phone] 11/17/2025 2:00 PM EDT Office Visit Gastroenterology - 299 [facility] [address] [phone] Grisel Ford PA 299 [address] [place] [address] documented as of this encounter Goals Goal [...] Associated Diagnosis Comments COMPLETE BLOOD COUNT Routine 11/11/2024 9:56 AM EDT Cellulitis, unspecified BASIC METABOLIC PANEL Routine 11/11/2024 9:56 AM EDT Cellulitis, unspecified documented in this encounter Results * (ABNORMAL) Basic metabolic panel (11/11/2024 9:56 AM EDT) Sodium 132(L) 133 - 145 mmol/L LAB CHEMISTRY METHOD 11/11/2024 1:44 PM EDT [facility] Potassium 3.9 3.5 - 5.5 mmol/L LAB CHEMISTRY METHOD 11/11/2024 1:44 PM T [facility] Comment:Hemolysis present Chloride 96 96 - 110 mmol/L LAB CHEMISTRY METHOD 11/11/2024 1:44 PM [facility] CO2 25 21 - 32 mmol/L LAB CHEMISTRY METHOD 11/11/2024 1:44 PM [facility] Anion Gap 11 3 - 11 LAB CHEMISTRY METHOD 11/11/2024 1:44 PM [facility] Glucose 149(H) 70 - 100 mg/dL LAB CHEMISTRY METHOD 11/11/2024 1:44 PM [facility] BUN 20 5 - 25 mg/dL LAB CHEMISTRY METHOD 11/11/2024 1:44 PM [facility] Creatinine 0.93 0.50 - 1.10 mg/dL LAB CHEMISTRY METHOD 11/11/2024 1:44 PM [facility] eGFR 66 >=60 mL/min/1. 73m2 LAB CHEMISTRY METHOD 11/11/2024 1:44 PM [facility] Comment:Calculation based on the Chronic Kidney Disease Epidemiology Collaboration (CKD-EPI) equation refit without adjustment for race. BUN/Creatinine Ratio 21.5 LAB CHEMISTRY METHOD 11/11/2024 1:44 PM [facility] Calcium 9.2 8.5 - 10.5 mg/dL LAB CHEMISTRY METHOD 11/11/2024 1:44 PM [facility] Blood Venous blood specimen / Unknown Venipuncture / Unknown 11/11/2024 9:56 AM EDT 11/11/2024 11:19 AM EDT us Josefa Monroe MD LAB BLOOD ORDERABLES Final Resu lt [facility] [address] [place] [address], * (ABNORMAL) Complete blood count (11/11/2024 9:56 AM EDT) [facility] WBC 8.7 4.8 - 10.8 K/mcL LAB HEMETOLOGY METHOD 11/11/2024 1:32 PM [facility] RBC 4.30 3.80 - 4.80 M/mcL LAB HEMETOLOGY METHOD 11/11/2024 1:32 PM [facility] Hemoglobin 11.6 11.5 - 16.0 g/dL LAB HEMETOLOGY METHOD 11/11/2024 1:32 PM [facility] Hematocrit 37.9 35.0 - 47.0 % LAB HEMETOLOGY METHOD 11/11/2024 1:32 PM [facility] MCV 88.1 79.0 - 98.0 FL LAB HEMETOLOGY METHOD 11/11/2024 1:32 PM [facility] MCH 27.0 27.0 - 32.0 pcg LAB HEMETOLOGY METHOD 11/11/2024 1:32 PM [facility] MCHC 30.6(L) 32.0 - 37.0 g/dL LAB HEMETOLOGY METHOD 11/11/2024 1:32 PM [facility] RDW 15.9(H) 11.0 - 15.0 % LAB HEMETOLOGY METHOD 11/11/2024 1:32 PM [facility] Platelets 278 130 - 400 K/mcL LAB HEMETOLOGY METHOD 11/11/2024 1:32 PM [facility] MPV 10.7 7.0 - 11.0 FL LAB HEMETOLOGY METHOD 11/11/2024 1:32 PM [facility] NRBC 0.0 <1.0 % LAB HEMETOLOGY METHOD 11/11/2024 1:32 PM [facility] NRBC Absolute 0.00 <0.10 K/mcL LAB HEMETOLOGY METHOD 11/11/2024 1:32 PM EDT [facility] Blood Venous blood specimen / Unknown Venipuncture / Unknown 11/11/2024 9:56 AM EDT 11/11/2024 11:19 AM EDT us Josefa Monroe MD LAB BLOOD ORDERABLES Final Resu lt [facility] [address] [place] [address], documented in this encounter Visit Diagnoses Diagnosis Cellulitis, unspecified documented in this encounter Additional [...] documented as of this encounter Care Teams Computer Laboratory Technician Relationship Specialty Start Date End Date Sheridan Logan MD [address] [place] [address] PCP - General Internal Medicine 04/30/12 documented as of this encounter
--- OUTSIDE RECORDS SUMMARY | 2025-05-30 11:29 | XMS_ITS | Clinical Summary ---
Author Organization [facility] Prior to 11/02/[address] [place] [address] Care Team Providers Care Gaming Cage Worker Name Role Phone Steven Logan MD Primary Care Provider [phone] Allergies Active Allergy Reactions Criticality Noted Date [...] 86 07/20/2022 11:21 AM EST Temperature 36.5 C (97.7 F) 07/20/2022 11:21 AM EST Respiratory Rate - - Oxygen Saturation 98% [...] or Tdap) 04/30/2022 04/30/2012 Influenza Vaccine (#1) 2025 2, 2021, 02/08/2019, Additional history exists RSV Adult > 60+ Yrs or (1 - 1-dose 75+ series) 2029 Hepatitis B Vaccines Aged Out No long er eligible based on patient's age to complete this topic RSV Ped < 20 months Aged Out No longe r eligible based on patient's age to complete this topic Care Teams Gaming Cage Worker Relationship Specialty Start Date End Date Steven Logan MD PCP - General Gold Leaf Layer 05/03/22
--- OUTSIDE RECORDS SUMMARY | 2025-05-30 11:29 | XMS_ITS | Encounter Summary ---
Author Organization [facility] Address [address] [place] [address] Care Team Providers Care Vendor Representatives Name Role Phone Sheridan Logan MD Primary Care Provider [phone] Encounter Details Date Type Department Care Team (Late st Contact Info) Description 03/14/2025 Lab Requisition [facility] - Main Lab 299 [facility] [place] [phone] Josefa Monroe MD [address] [place] [address] Urinary tract infection, site not specified Social [...] 06/09/2025 11:00 AM EST Clinical Support [facility] [address] [place] [phone] 11/17/2025 2:00 PM EDT Office Visit Gastroenterology - 299 [facility] 299 [facility] [address] [place] [phone] Grisel Ford PA 299 [facility] [address] [place] [address] documented as of this encounter Goals Goal [...] Diagnosis Comments URINALYSIS WITH REFLEX MICROSCOPIC Routine 03/13/2025 10:00 AM EDT Urinary tract infection, site not specified URINALYSIS WITH REFLEX MICROSCOPIC Routine 03/13/2025 10:00 AM EDT Urinary tract infection, site not specified CULTURE URINE Routine 03/13/2025 10:00 AM EDT Urinary tract infection, site not specified documented in this encounter Results * Urinalysis with reflex microscopic (03/13/2025 10:00 AM EDT) Specific [place] Urine 1.007 1.003 - 1.030 LAB URINALYSIS - AUTOMATED METHOD 03/14/2025 8:54 AM [facility] pH, Urine 7.0 5.0 - 8.0 pH LAB URINALYSIS - AUTOMATED METHOD 03/14/2025 8:54 AM [facility] Leukocytes, Urine Negative Negative LAB URINALYSIS - AUTOMATED METHOD 03/14/2025 8:54 AM [facility] Nitrite, Urine Negative Negative LAB URINALYSIS - AUTOMATED METHOD 03/14/2025 8:54 AM [facility] Protein, Urine Negative <=Trace mg/dL LAB URINALYSIS - AUTOMATED METHOD 03/14/2025 8:54 AM [facility] Glucose, Urine Negative Negative mg/dL LAB URINALYSIS - AUTOMATED METHOD 03/14/2025 8:54 AM [facility] Ketones, Urine Negative Negative mg/dL LAB URINALYSIS - AUTOMATED METHOD 03/14/2025 8:54 AM [facility] Urobilinogen, Urine 0.2 0.2 - 1.0 mg/dL LAB URINALYSIS - AUTOMATED METHOD 03/14/2025 8:54 AM [facility] Bilirubin, Urine Negative Negative LAB URINALYSIS - AUTOMATED METHOD 03/14/2025 8:54 AM [facility] Blood, Urine Negative Negative LAB URINALYSIS - AUTOMATED METHOD 03/14/2025 8:54 AM [facility] Urine Urinary bladder structure / Unknown Non-blood Collection / Unknown 03/13/2025 10:00 AM EDT 03/14/2025 8:31 AM EDT us Josefa Monroe MD LAB URINE ORDERABLES Final Resu lt [facility] [address] [place] [address], [place] [phone] * Culture urine (03/13/2025 10:00 AM EDT) Culture, Urine No growth 03/16/2025 9:41 AM EDT [facility] Urine Urinary bladder structure / Unknown Non-blood Collection / Unknown 03/13/2025 10:00 AM EDT 03/14/2025 8:31 AM EDT us Josefa Monroe MD LAB MICROBIOLOGY - [facility] KASSY REEVES Final Result [facility] [address] [place] [address], documented in this encounter Visit Diagnoses Diagnosis [...] documented as of this encounter Care Teams Vendor Representatives Relationship Specialty Start Date End Date Sheridan Logan MD [address] [place] [address] PCP - General Internal Medicine 04/30/12 documented as of this encounter
--- OUTSIDE RECORDS SUMMARY | 2025-05-30 11:29 | XMS_ITS | Encounter Summary ---
Author Organization [facility] Address [address] [place] [address] Care Team Providers Care Adjunct Political Science Instructor Name Role Phone Sheridan Logan MD Primary Care Provider [phone] Encounter Details Date Type Department Care Team (Late Contact Info) Description 10/18/2024 Lab Requisition [facility] - Main Lab 299 [facility] [place] [phone] Josefa Monroe MD [address] [place] [address] Dysuria Social History Tobacco Use Types Packs/Day Years [...] [facility] [address] [place] [phone] 11/17/2025 2:00 PM EDT Office Visit Gastroenterology - 299 [facility] [address] [phone] Grisel Ford PA [address] [address] documented as of this encounter Goals Goal [...] Diagnosis Comments URINALYSIS WITH REFLEX MICROSCOPIC Routine 10/17/2024 12:00 AM EDT Dysuria URINALYSIS WITH REFLEX MICROSCOPIC Routine 10/17/2024 12:00 AM EDT Dysuria CULTURE URINE Routine 10/17/2024 12:00 AM EDT Dysuria documented in this encounter Results * Urinalysis with reflex microscopic (10/17/2024 12:00 AM EDT) Specific [place] Urine 1.012 1.003 - 1.030 LAB URINALYSIS - AUTOMATED METHOD 10/18/2024 10:17 AM [facility] pH, Urine 7.0 5.0 - 8.0 pH LAB URINALYSIS - AUTOMATED METHOD 10/18/2024 10:17 AM [facility] Leukocytes, Urine Negative Negative LAB URINALYSIS - AUTOMATED METHOD 10/18/2024 10:17 AM [facility] Nitrite, Urine Negative Negative LAB URINALYSIS - AUTOMATED METHOD 10/18/2024 10:17 AM [facility] Protein, Urine Negative <=Trace mg/dL LAB URINALYSIS - AUTOMATED METHOD 10/18/2024 10:17 AM [facility] Glucose, Urine Negative Negative mg/dL LAB URINALYSIS - AUTOMATED METHOD 10/18/2024 10:17 AM [facility] Ketones, Urine Negative Negative mg/dL LAB URINALYSIS - AUTOMATED METHOD 10/18/2024 10:17 AM [facility] Urobilinogen, Urine 0.2 0.2 - 1.0 mg/dL LAB URINALYSIS - AUTOMATED METHOD 10/18/2024 10:17 AM [facility] Bilirubin, Urine Negative Negative LAB URINALYSIS - AUTOMATED METHOD 10/18/2024 10:17 AM [facility] Blood, Urine Negative Negative LAB URINALYSIS - AUTOMATED METHOD 10/18/2024 10:17 AM [facility] Urine Urinary bladder structure / Unknown Non-blood Collection / Unknown 10/17/2024 10/18/2024 9:11 AM EDT us Josefa Monroe MD LAB URINE ORDERABLES Final Resu lt [facility] [address] [place] [address], [place] [phone] * Culture urine (10/17/2024 12:00 AM EDT) Culture, Urine No growth 10/20/2024 11:24 AM EDT [facility] Urine Urinary bladder structure / Unknown Non-blood Collection / Unknown 10/17/2024 10/18/2024 9:11 AM EDT us Josefa Monroe MD LAB MICROBIOLOGY - [facility] KASSY REEVES Final Result [facility] [address] [place] [address], [place] [phone] documented in this encounter Visit Diagnoses Diagnosis Dysuria documented in this encounter Additional Health Concerns [...] documented as of this encounter Care Teams Adjunct Political Science Instructor Relationship Specialty Start Date End Date Sheridan Logan MD [address] [place] [address] PCP - General Internal Medicine 04/30/12 documented as of this encounter
--- OUTSIDE RECORDS SUMMARY | 2025-05-30 11:29 | XMS_ITS | Encounter Summary ---
Author Organization [facility] Address [address] [place] [address] Care Team Providers Care Drafting Clerk Name Role Phone Sheridan Logan MD Primary Care Provider [phone] Encounter Details Date Type Department Care Team (Late st Contact Info) Description 01/06/2025 Lab Requisition [facility] - Main Lab 299 [facility] [phone] Josfea Monroe MD [address] [place] [address] Urinary tract infection, site not specified Social [...] Description 06/09/2025 11:00 AM EST Clinical Support [facility] [address] [place] [phone] 11/17/2025 2:00 PM EDT Office Visit Gastroenterology - 299 [facility] 299 [facility] [address] [place] [phone] Grisel Ford PA 299 [facility] [address] [place] [address] documented as of this encounter Goals Goal [...] Date/Time Associated Diagnosis Comments PRIMIDONE LEVEL Routine 01/06/2025 5:20 AM EDT Urinary tract infection, site not specified COMPLETE BLOOD COUNT Routine 01/06/2025 5:20 AM EDT Urinary tract infection, site not specified documented in this encounter Results * Primidone level (01/06/2025 5:20 AM EDT) Primidone (Mysoline) 5.8 4 - 12 ug/mL 01/08/2025 10:30 AM EDT [facility] Comment: Primidone toxic level: >20 ug/mL If applicable, any drug confirmation testing reported here was developed and the performance characteristics determined by [facility]. This confirmation testing has not been cleared or approved by the FDA. The laboratory is regulated under CLIA as qualified to perform high-complexity testing. This test is used for patient testing purposes. It should not be regarded as investigational or for research. Test performed at [facility], [address] , [place] [address] Adrienne Mart MD, PhD - Marketing Professional Blood Venous blood specimen / Unknown Venipuncture / Unknown 01/06/2025 5:20 AM EDT 01/06/2025 10:44 AM EDT us Josefa Monroe MD LAB BLOOD ORDERABLES Final Resu lt [facility] [address] [address] * (ABNORMAL) Complete blood count (01/06/2025 5:20 AM EDT) WBC 8.6 4.8 - 10.8 K/mcL LAB HEMETOLOGY METHOD 01/06/2025 1:29 PM EDT [facility] RBC 4.40 3.80 - 4.80 M/mcL LAB HEMETOLOGY METHOD 01/06/2025 1:29 PM EDT [facility] Hemoglobin 12.1 11.5 - 16.0 g/dL LAB HEMETOLOGY METHOD 01/06/2025 1:29 PM EDT [facility] Hematocrit 38.8 35.0 - 47.0 % LAB HEMETOLOGY METHOD 01/06/2025 1:29 PM EDT [facility] MCV 88.8 79.0 - 98.0 FL LAB HEMETOLOGY METHOD [facility]/06[facility]25 [facility] MCH 27.7 27.0 - 32.0 pcg LAB HEMETOLOGY METHOD 01/06/2025 1:29 PM EDT [facility] MCHC 31.2(L) 32.0 - 37.0 g/dL LAB HEMETOLOGY METHOD 01/06/2025 1:29 PM EDT [facility] RDW 15.8(H) 11.0 - 15.0 % LAB HEMETOLOGY METHOD 01/06/2025 1:29 PM EDT [facility] Platelets 273 130 - 400 K/mcL LAB HEMETOLOGY METHOD 01/06/2025 1:29 PM EDT [facility] MPV 10.5 7.0 - 11.0 FL LAB HEMETOLOGY METHOD 01/06/2025 1:29 PM EDT [facility] NRBC 0.0 <1.0 % LAB HEMETOLOGY METHOD 01/06/2025 1:29 PM EDT [facility] NRBC Absolute 0.00 <0.10 K/mcL LAB HEMETOLOGY METHOD 01/06/2025 1:29 PM EDT [facility] Blood Venous blood specimen / Unknown Venipuncture / Unknown 01/06/2025 5:20 AM EDT 01/06/2025 10:44 AM EDT us Josefa Monroe MD LAB BLOOD ORDERABLES Final Resu lt [facility] [address] [place] [address], documented in this encounter Visit Diagnoses Diagnosis [...] documented as of this encounter Care Teams Drafting Clerk Relationship Specialty Start Date End Date Sheridan Logan MD [address] [place] [phone] PCP - General Internal Medicine 04/30/12 documented as of this encounter
--- OUTSIDE RECORDS SUMMARY | 2025-05-30 11:29 | XMS_ITS | Encounter Summary ---
Author Organization [facility] Address [address] [place] [address] Care Team Providers Care Bog Worker Name Role Phone Sheridan Logan MD Primary Care Provider [phone] Encounter Details Date Type Department Care Team (Late Contact Info) Description 09/27/2024 Lab Requisition [facility] - Main Lab [address] [facility] [place] [phone] Josefa Monroe MD [address] [place] [id number] Obesity, unspecified; Essential (primary) hypertension; Hypothyroidism, unspecified Social History Tobacco Use Types [...] Description 06/09/2025 11:00 AM EST Clinical Support [facility] [address] [place] [phone] 11/17/2025 2:00 PM EDT Office Visit Gastroenterology - [address] [place] [id number] Grisel Ford PA [address] [place] [address] documented as of this encounter Goals Goal [...] Associated Diagnosis Comments COMPLETE BLOOD COUNT Routine 09/27/2024 6:28 AM EDT Obesity, unspecified Essential (primary) hypertension Hypothyroidism, unspecified THYROID STIMULATING HORMONE Routine 09/27/2024 6:28 AM EDT Obesity, unspecified Essential (primary) hypertension Hypothyroidism, unspecified BASIC METABOLIC PANEL Routine 09/27/2024 6:28 AM EDT Obesity, unspecified Essential (primary) hypertension Hypothyroidism, unspecified documented in this encounter Results * (ABNORMAL) Thyroid stimulating hormone (09/27/2024 6:28 AM EDT) TSH 7.06(H) 0.40 - 4.00 mcIU/mL LAB CHEMISTRY METHOD 09/27/2024 11:05 AM [facility] Blood Venous blood specimen / Unknown Venipuncture / Unknown 09/27/2024 6:28 AM EDT 09/27/2024 7:35 AM EDT us Josefa Monroe MD LAB BLOOD ORDERABLES Final Resu lt [facility] [address] [place] [address], * (ABNORMAL) Basic metabolic panel (09/27/2024 6:28 AM EDT) [facility] Sodium 141 133 - 145 mmol/L LAB CHEMISTRY METHOD 09/27/2024 8:37 AM [facility] Potassium 4.6 3.5 - 5.5 mmol/L LAB CHEMISTRY METHOD 09/27/2024 8:37 AM [facility] Chloride 100 96 - 110 mmol/L LAB CHEMISTRY METHOD 09/27/2024 8:37 AM [facility] CO2 34(H) 21 - 32 mmol/L LAB CHEMISTRY METHOD 09/27/2024 8:37 AM [facility] Anion Gap 7 3 - 11 LAB CHEMISTRY METHOD 09/27/2024 8:37 AM [facility] Glucose 100 70 - 100 mg/dL LAB CHEMISTRY METHOD 09/27/2024 8:37 AM [facility] BUN 24 5 - 25 mg/dL LAB CHEMISTRY METHOD 09/27/2024 8:37 AM [facility] Creatinine 0.93 0.50 - 1.10 mg/dL LAB CHEMISTRY METHOD 09/27/2024 8:37 AM EDT [facility] eGFR 66 >=60 mL/min/1. 73m2 LAB CHEMISTRY METHOD 09/27/2024 8:37 AM EDT [facility] Comment:Calculation based on the Chronic Kidney Disease Epidemiology Collaboration (CKD-EPI) equation refit without adjustment for race. BUN/Creatinine Ratio 25.8 LAB CHEMISTRY METHOD 09/27/2024 8:37 AM EDT [facility] Calcium 9.2 8.5 - 10.5 mg/dL LAB CHEMISTRY METHOD 09/27/2024 8:37 AM EDT [facility] Blood Venous blood specimen / Unknown Venipuncture / Unknown 09/27/2024 6:28 AM EDT 09/27/2024 7:35 AM EDT us Josefa Monroe MD LAB BLOOD ORDERABLES Final Resu lt [facility] [address] [place] [address], * (ABNORMAL) Complete blood count (09/27/2024 6:28 AM EDT) WBC 7.7 4.8 - 10.8 K/mcL LAB HEMETOLOGY METHOD 09/27/2024 8:12 AM [facility] RBC 4.20 3.80 - 4.80 M/mcL LAB HEMETOLOGY METHOD 09/27/2024 8:12 AM EDT [facility] Hemoglobin 11.3(L) 11.5 - 16.0 g/dL LAB HEMETOLOGY METHOD 09/27/2024 8:12 AM [facility] Hematocrit 37.8 35.0 - 47.0 % LAB HEMETOLOGY METHOD 09/27/2024 8:12 AM EDT [facility] MCV 90.6 79.0 - 98.0 FL LAB HEMETOLOGY METHOD 09/27/2024 8:12 AM T [facility] MCH 27.1 27.0 - 32.0 pcg LAB HEMETOLOGY METHOD 09/27/2024 8:12 AM EDT [facility] MCHC 29.9(L) 32.0 - 37.0 g/dL LAB HEMETOLOGY METHOD 09/27/2024 8:12 AM EDT [facility] RDW 15.6(H) 11.0 - 15.0 % LAB HEMETOLOGY METHOD 09/27/2024 8:12 AM EDT [facility] Platelets 345 130 - 400 K/mcL LAB HEMETOLOGY METHOD 09/27/2024 8:12 AM EDT [facility] MPV 10.9 7.0 - 11.0 FL LAB HEMETOLOGY METHOD 09/27/2024 8:12 AM EDT [facility] NRBC 0.0 <1.0 % LAB HEMETOLOGY METHOD 09/27/2024 8:12 AM EDT [facility] NRBC Absolute 0.00 <0.10 K/mcL LAB HEMETOLOGY METHOD 09/27/2024 8:12 AM EDT [facility] Blood Venous blood specimen / Unknown Venipuncture / Unknown 09/27/2024 6:28 AM EDT 09/27/2024 7:35 AM EDT us Josefa Monroe MD LAB BLOOD ORDERABLES Final Resu lt [facility] [address] [place] [address], documented in this encounter Visit Diagnoses Diagnosis Obesity, unspecified Essential (primary) hypertension Unspecified essential hypertension Hypothyroidism, unspecified documented in this encounter Additional [...] documented as of this encounter Care Teams Bog Worker Relationship Specialty Start Date End Date Sheridan Logan MD [address] [place] [address] PCP - General Internal Medicine 04/30/12 documented as of this encounter
== END 2025-05-30 12:30 | disposition home or self-care (01) ==
LOC: HO.HSMS 11:23
PROVIDERS: PCP Pediatrics; Visit Provider Physician Assistant Medical
DX: G25.2 Other specified forms of tremor (principal); G25.81 Restless legs syndrome; G43.E09 Chronic migraine with aura, not intractable, without status migrainosus; G47.33 Obstructive sleep apnea (adult) (pediatric); M54.2 Cervicalgia
CPT/HCPCS: 99214

== ENCOUNTER → 2025-05-30 11:22 | Outpatient (BNVA) | payer MEDICARE, MEDICAID, SELFPAY | PROVIDERS: PCP Pediatrics; Visit Provider Physician Assistant Medical | DX: G47.33 Obstructive sleep apnea (adult) (pediatric) (principal); G25.2 Other specified forms of tremor; G25.81 Restless legs syndrome; G43.E09 Chronic migraine with aura, not intractable, without status migrainosus; M54.2 Cervicalgia | CPT/HCPCS: 99212 ==